=== PATIENT | male | born 1950 | race Caucasian/White ===

== ENCOUNTER → 2019-06-07 12:46 | Outpatient (CLI) | payer MEDICARE, OTHER, SELFPAY ==
[2019-06-07 13:09] LABS: Influenza A and B by PCR Rapid Negative (Negative)
== END ==
PROVIDERS: Visit Provider Physician Assistant
DX: R68.89 Other general symptoms and signs (principal)
CPT/HCPCS: 87400

== ENCOUNTER 2019-06-07 13:31 | Inpatient (IN) | payer MEDICARE, OTHER, SELFPAY ==
[2019-06-07] VITALS (14 sets, daily range): BP systolic 104–178; BP diastolic 54–93; PULSE 78–115; RESP 17–23; TEMP 37.6–39.8; O2SAT 93–97; BMI 41.3
--- NOTE | 2019-06-07 13:43 | DI.RAD.S_ITS ---
PROCEDURE: XR CHEST 1V INDICATIONS: sepsis TECHNIQUE: One view of the chest was acquired. COMPARISON: None. FINDINGS: Surgical changes and devices: None. Lungs and pleura: Lungs are clear. No pleural effusions or pneumothorax. Mediastinum: Mediastinal contours appear normal. Heart size is normal. Bones and chest wall: No suspicious bony lesions. Overlying soft tissues appear unremarkable. IMPRESSION: No acute cardiopulmonary process is evident. Dictated by: Suorav Priest M.D. on 06/07/2019 at 13:29 Approved by: Sourav Priest M.D. on 06/07/2019 at 13:31
--- NOTE | 2019-06-07 13:54 | ED_ITS ---
HPI - Fever General Chief Complaint: Fever Stated Complaint: 105 temp, high Blood Preesure, sent from [facility] Time Seen by Provider: 06/07/19 13:40 Source: patient Mode of arrival: Ambulatory History of Present Illness HPI Narrative: 69-year-old male cigar smoker with hypertension and hyperlipidemia presents with a chief complaint of a day and a half of severe right-sided year and right-sided neck pain along with fever as high as 105, nausea, shaking chills and weakness. He denies any injury. He denies neurologic symptoms such as blurred vision, trouble with speech or confusion. He has had no chest pain, shortness of breath or cough. He denies any abdominal pain dysuria or frequency. He was seen at the walk-in clinic and sent here for further evaluation. He has very significant swelling, pain, redness and tenderness to the right external ear and just posterior. He is allergic to quinolones MD complaint: fever Onset (ago): day(s) Maximum Temperature: 105 F Temperature Source: oral Associated symptoms: chills, rigors and headache Relieving factors: nothing Exacerbating factors: nothing Treatments prior to arrival fever: none Related Data Home Medications Medication Instructions Recorded Confirmed aspirin 81 mg PO DAILY #0 04/10/12 06/07/19 folic acid 1 mg PO DAILY #0 04/10/12 06/07/19 Multivitamin Senior 1 tab PO DAILY 06/07/19 06/07/19 Super Biotin 5,000 mg PO DAILY 06/07/19 06/07/19 Turmeric Curcumin 1,000 mg PO DAILY 06/07/19 06/07/19 atorvastatin 10 mg PO DAILY 06/07/19 06/07/19 carvedilol 6.25 mg PO BID 06/07/19 06/07/19 diltiazem HCl 120 mg PO DAILY 06/07/19 06/07/19 ferrous sulfate 65 mg PO Q OTHER DAY 06/07/19 06/07/19 lisinopril-hydrochlorothiazide 1 tab PO DAILY 06/07/19 06/07/19 magnesium oxide 400 mg PO DAILY 06/07/19 06/07/19 methotrexate sodium 25 mg PO QWEEK 06/07/19 06/07/19 sildenafil [Viagra] 0 mg PO PRN PRN 06/07/19 06/07/19 Allergies Allergy/AdvReac Type Severity Reaction Status Date / Time levofloxacin [From LEVAQUIN] Allergy Unknown Verified 06/07/19 13:20 phenazopyridine Allergy Unknown Verified 06/07/19 14:33 Review of Systems Constitutional Constitutional: Reports body ache(s), Reports chills, Denies fatigue, Reports fever(s), Denies frequent falls, Reports headache(s), Denies lethargy and Denies weakness Eyes Eyes: Denies change in vision, Denies eye discharge, Denies irritation and Denies loss of vision ENT Ears, Nose, Mouth, and Throat: Denies change in voice, Denies dizziness, Reports otalgia, Reports headache(s), Denies neck pain, Denies sore throat and Denies throat swelling Cardiovascular Cardiovascular: Denies chest pain, Denies irregular heart rhythm, Denies lightheadedness, Denies palpitations, Denies dyspnea, Denies dyspnea on exertion and Denies orthopnea Respiratory Respiratory: Denies cough, Denies dyspnea, Denies dyspnea on exertion and Denies wheezing Gastrointestinal Gastrointestinal: Denies abdominal pain, Denies change in bowel habits, Denies diarrhea, Denies nausea and Denies vomiting Genitourinary Genitourinary: Denies hematuria, Denies flank pain, Denies urinary incontinence and Denies urinary urgency Musculoskeletal Musculoskeletal: Denies back pain, Denies muscle weakness, Denies neck pain, Denies numbness and Denies tingling Integumentary/Breasts Skin/Breast: Denies pruritus, Denies erythema, Denies rash and Denies wounds Neurologic Neurologic: Denies behavioral changes, Denies confusion, Denies dizziness, Denies frequent falls, Reports headache(s), Denies loss of vision, Denies numbness, Denies tingling and Denies weakness Psychiatric Psychiatric: Denies anxiety, Denies behavioral changes, Denies confusion, Denies depression, Denies homicidal ideation and Denies suicidal ideation Endocrine Endocrine: Denies fatigue, Denies flushing and Denies palpitations Hematologic/Lymphatic Hematologic/Lymphatic: Denies easy bruising Allergic/Immunologic Allergic/Immunologic: Denies urticaria, Denies throat swelling and Denies wheezing PFSH Social History Smoking Status: Current every day smoker Social History Smoking Status: Current every day smoker Exam Narrative Exam Narrative: GENERAL: [69] year old patient appears stated age. Obese, well- developed, obviously ill HEAD: Atraumatic. Normocephalic. EYES: Pupils equal round and reactive. Extraocular motions intact. No scleral icterus. No injection or drainage. ENT: Redness, warmth and swelling to the right external ear with a swollen node behind the ear and tenderness over the mastoid Nose without bleeding, purulent drainage. Throat without erythema, tonsillar hypertrophy or exudate. Airway patent. NECK: Trachea midline. Non tender CARDIOVASCULAR: Tachycardic and regular rhythm without murmurs, gallops, or rubs. RESPIRATORY: Clear to auscultation. Breath sounds equal bilaterally. No wheezes, rales, or rhonchi. GASTROINTESTINAL: Abdomen soft, non-tender, nondistended. EXTREMITIES: No edema or joint tenderness. BACK: Nontender without deformity or crepitance. No flank tenderness. NEURO: AOx3. SKIN: No rash or erythema of visible areas Initial Vital Signs Initial Vital Signs: Vital Signs Temperature 103.7 F H 06/07/19 13:38 Pulse Rate 115 H 06/07/19 13:38 Respiratory Rate 22 06/07/19 13:38 Blood Pressure 178/93 H 06/07/19 13:38 Pulse Oximetry 96 06/07/19 13:38 Course Orders Ordered: ED Orders 06/07/19 13:43 XR chest 1V Stat 06/07/19 14:07 CT mastoid temporal Stat 06/07/19 14:15 Complete Blood Count AUTO DIFF Stat Comprehensive Metabolic Panel Stat Lactate (Lactic Acid) Stat Procalcitonin Stat 06/07/19 14:36 Blood Culture Stat Acetaminophen (Tylenol) 650 mg PO Q6HR PRN PRN Reason: As Needed for Fever/Mild Pain Aspirin (Aspirin Chew) 81 mg PO DAILY SONYA Atorvastatin Calcium (Lipitor) 10 mg PO DAILY SNOYA Carvedilol (Coreg) 6.25 mg PO BID SONYA Folic Acid (Folic Acid) 1 mg PO DAILY SONYA Heparin Sodium (Porcine) (Heparin) 5,000 unit SUBCUT BID SONYA Piperacillin/Tazobactam/Dextrose (Zosyn) 4.5 gm in 100 mls @ 200 mls/hr IV Q6H SONYA Ketorolac Tromethamine (Toradol) 10 mg PO Q6HR PRN PRN Reason: Pain, Moderate (4-6) Stop: 06/12/19 16:54 Non-Formulary Medication (Diltiazem Hcl) 120 mg PO DAILY [facility] Non-Formulary Medication (Lisinopril-Hydrochlorothiazide) 1 tab PO DAILY [facility] Vancomycin HCl (Vancomycin Per Pharmacy) 1 request MISC NOW ONE Stop: 06/07/19 16:50 Discontinued Medications Acetaminophen (Tylenol) 975 mg PO NOW ONE Stop: 06/07/19 16:38 Last Admin: 06/07/19 16:44 Dose: 975 mg Documented by: ISRA Sodium Chloride (Normal Saline 0.9%) 3,810.18 mls @ 1,270.06 mls/hr 30 ml/kg infuse over 3 hr (3810.18 ml) IV NOW ONE Stop: 06/07/19 16:42 Last Admin: 06/07/19 14:45 Dose: 1,270.06 mls/hr Documented by: ISRA Piperacillin/Tazobactam/Dextrose (Zosyn) 3.375 gm in 50 mls @ 100 mls/hr IV NOW ONE Stop: 06/07/19 16:10 Last Infusion: 06/07/19 16:43 Dose: 0 mls/hr Documented by: Admin: 06/07/19 16:13 Dose: 100 mls/hr Documented by: ISRA Ketorolac Tromethamine (Toradol) 15 mg IV NOW ONE Stop: 06/07/19 15:19 Last Admin: 06/07/19 15:31 Dose: 15 mg Documented by: NOHEMI Browne Consultation #1: Discussion with on-call [facility] to discuss antibiotic approach and any other recommendations. They are happy with Pip/Marcelino is given allergy to quinolones. Consultation #2: hospitalist happy to accept Vital Signs Vital signs: Vital Signs - 8 hr 06/07/19 13:38 06/07/19 14:30 06/07/19 15:08 Temperature 103.7 F H Pulse Rate 115 H 107 H 79 Respiratory Rate 22 23 Blood Pressure 178/93 H Blood Pressure [Left Arm] 148/75 H 165/86 H Pulse Oximetry 96 93 96 MDM - Fever Lab Data Result diagrams: 06/07/19 14:15 06/07/19 14:15 Labs: Lab Results 06/07/19 06/07/19 06/07/19 Range/Units 14:15 14:15 14:15 WBC 11.6 H (4.5-11.0) X10^3/uL RBC 4.58 (4.5-5.9) X10^6/uL Hgb 13.8 (13.5-17.5) g/dL Hct 40.7 L (41-53) % MCV 88.9 (80-100) fL MCH 30.1 (26-34) PG MCHC 33.9 (30-36) % RDW 13.9 (11.6-14.8) % Plt Count 144 L (150-400) X10^3/uL Neut % (Auto) 89.9 H (50-75) % Lymph % (Auto) 4.7 L (25-40) % [place] % (Auto) 4.4 (3-14) % Eos % (Auto) 0.2 L (2-4) % Baso % (Auto) 0.8 (0-2) % Neut # (Auto) 20571 H (7068-6185) /uL Lymph # (Auto) 500 L (7895-6982) /uL [place] # (Auto) 500 (0-900) /uL Eos # (Auto) 0 (0-450) /uL Baso # (Auto) 100 (0-100) /uL Sodium 135 L (137-145) mmol/L Potassium 3.8 (3.4-5.1) mmol/L Chloride 99 (98-107) mmol/L Carbon Dioxide 27 (22-32) mmol/L BUN 12 (9-20) mg/dL Creatinine 0.90 (0.66-1.25) mg/dL Estimated GFR > 60.0 (>60) mL/min BUN/Creatinine Ratio 13.3 (6-22) Glucose 121 H (80-110) mg/dL Lactate (0.7-2.1) mmol/L Calcium 8.7 (8.4-10.2) mg/dL Total Bilirubin 1.4 H (0.2-1.3) mg/dL AST 39 (17-59) IU/L ALT 47 (21-72) IU/L Alkaline Phosphatase 89 (38-126) U/L Total Protein 7.2 (6.3-8.2) g/dL Albumin 4.2 (3.5-5.0) g/dL Globulin 3.0 (1.7-4.1) g/dL Albumin/Globulin Ratio 1.4 (1.0-2.8) Procalcitonin 0.16 (<0.5) ng/mL 06/07/19 Range/Units 14:15 WBC (4.5-11.0) X10^3/uL RBC (4.5-5.9) X10^6/uL Hgb (13.5-17.5) g/dL Hct (41-53) % MCV (80-100) fL MCH (26-34) PG MCHC (30-36) % RDW (11.6-14.8) % Plt Count (150-400) X10^3/uL Neut % (Auto) (50-75) % Lymph % (Auto) (25-40) % [place] % (Auto) (3-14) % Eos % (Auto) (2-4) % Baso % (Auto) (0-2) % Neut # (Auto) (0954-4590) /uL Lymph # (Auto) (5844-6979) /uL [place] # (Auto) (0-900) /uL Eos # (Auto) (0-450) /uL Baso # (Auto) (0-100) /uL Sodium (137-145) mmol/L Potassium (3.4-5.1) mmol/L Chloride (98-107) mmol/L Carbon Dioxide (22-32) mmol/L BUN (9-20) mg/dL Creatinine (0.66-1.25) mg/dL Estimated GFR (>60) mL/min BUN/Creatinine Ratio (6-22) Glucose (80-110) mg/dL Lactate 1.2 (0.7-2.1) mmol/L Calcium (8.4-10.2) mg/dL Total Bilirubin (0.2-1.3) mg/dL AST (17-59) IU/L ALT (21-72) IU/L Alkaline Phosphatase (38-126) U/L Total Protein (6.3-8.2) g/dL Albumin (3.5-5.0) g/dL Globulin (1.7-4.1) g/dL Albumin/Globulin Ratio (1.0-2.8) Procalcitonin (<0.5) ng/mL Imaging Data Mastoid Xray: Radiologist's impression: [address] [address] [address] Scan Report Signed Patient: Brandon Galo TMR#: [id number] : 1Acct:[id number] Age/Sex: 69 / MDate of Service: 06/07/19 Loc: ED Accession Number: [id number] Procedure: CT mastoid temporal Ordering Provider: Eder Zaman D.O. PROCEDURE: CT MASTOID TEMPORAL INDICATIONS: septic, fever 105, pain swelling external ear, tender mastoid COMPARISON: None. TECHNIQUE: Noncontrast 0.6 mm thick direct axial and coronal sections acquired through each temporal bone separately. FINDINGS: Image quality: Limited by beam hardening artifact related to metallic dental hardware. RIGHT: External auditory canal: Mild inflammatory changes noted in the right sam- articular soft tissues and in the soft tissue component of the right external auditory canal compatible with right otitis externa. No abscess identified. Middle ear: The middle ear structures, including the ossicles and tympanic membrane, appear normal. No abnormal fluid or soft tissue density. Inner ear: Inner ear is normally formed and appears unremarkable. Facial nerve appears normal throughout is course. Mastoids: Mastoid air cells are clear. No osseous erosive changes. LEFT: External auditory canal: Canal has a normal appearance. Middle ear: The middle ear structures, including the ossicles and tympanic membrane, appear normal. No abnormal fluid or soft tissue density. Inner ear: Inner ear is normally formed and appears unremarkable. Facial nerve appears normal throughout its course. Mastoids: Mastoid air cells are clear. MISCELLANEOUS: Visualized surrounding bones appear unremarkable. Visualized intracranial structures, including the cerebellopontine angle cisterns, appear normal. IMPRESSION: 1. Right otitis externa. 2. No abscess. Dictated by: Karely Valle MD, PhD on 06/07/2019 at 14:59 Approved by: Karely Valle MD, PhD on 06/07/2019 at 15:04 Discharge Plan Departure Patient Disposition: Admitted as Observation Clinical Impression: Otitis externa Qualifiers: Otitis externa type: unspecified type Chronicity: acute Laterality: right Qualified Code(s): H60.501 - Unspecified acute noninfective otitis externa, right ear Cellulitis of ear Qualifiers: Laterality: right Qualified Code(s): H60.11 - Cellulitis of right external ear Discharge Date/Time: 06/07/19 16:50 Admit Date/Time: 06/07/19 16:10 Admit Provider: Eduardo Thornton
--- NOTE | 2019-06-07 14:07 | DI.CT.S_ITS ---
PROCEDURE: CT MASTOID TEMPORAL INDICATIONS: septic, fever 105, pain swelling external ear, tender mastoid COMPARISON: None. TECHNIQUE: Noncontrast 0.6 mm thick direct axial and coronal sections acquired through each temporal bone separately. FINDINGS: Image quality: Limited by beam hardening artifact related to metallic dental hardware. RIGHT: External auditory canal: Mild inflammatory changes noted in the right sam-articular soft tissues and in the soft tissue component of the right external auditory canal compatible with right otitis externa. No abscess identified. Middle ear: The middle ear structures, including the ossicles and tympanic membrane, appear normal. No abnormal fluid or soft tissue density. Inner ear: Inner ear is normally formed and appears unremarkable. Facial nerve appears normal throughout is course. Mastoids: Mastoid air cells are clear. No osseous erosive changes. LEFT: External auditory canal: Canal has a normal appearance. Middle ear: The middle ear structures, including the ossicles and tympanic membrane, appear normal. No abnormal fluid or soft tissue density. Inner ear: Inner ear is normally formed and appears unremarkable. Facial nerve appears normal throughout its course. Mastoids: Mastoid air cells are clear. MISCELLANEOUS: Visualized surrounding bones appear unremarkable. Visualized intracranial structures, including the cerebellopontine angle cisterns, appear normal. IMPRESSION: 1. Right otitis externa. 2. No abscess. Dictated by: Karely Valle MD, PhD on 06/07/2019 at 14:59 Approved by: Karely Valle MD, PhD on 06/07/2019 at 15:04
[2019-06-07 14:28] LABS: Add Manual Diff / Slide Review NO; Basophils Absolute Auto 100 /uL (0-100); Basophils Percent Auto 0.8 % (0-2); Eosinophils Absolute Auto 0 /uL (0-450); Eosinophils Percent Auto 0.2 % (2-4); Hematocrit 40.7 % (41-53); Hemoglobin 13.8 g/dL (13.5-17.5); Lymphocytes Absolute Auto 500 /uL (1100-4500); Lymphocytes Percent Auto 4.7 % (25-40); Mean Corpuscular HGB Conc 33.9 % (30-36); Mean Corpuscular Hemoglobin 30.1 PG (26-34); Mean Corpuscular Volume 88.9 fL (80-100); Monocytes Absolute Auto 500 /uL (0-900); Monocytes Percent Auto 4.4 % (3-14); Neutrophils Absolute Auto 10400 /uL (1500-7000); Neutrophils Percent Auto 89.9 % (50-75); Platelet Count 144 X10^3/uL (150-400); Red Blood Cell Count 4.58 X10^6/uL (4.5-5.9); Red Cell Distribution Width 13.9 % (11.6-14.8); White Blood Cell Count 11.6 X10^3/uL (4.5-11.0)
[2019-06-07 14:39] LABS: Lactate (Lactic Acid) 1.2 mmol/L (0.7-2.1)
[2019-06-07 14:44] LABS: Alanine Aminotransferase 47 IU/L (21-72); Albumin 4.2 g/dL (3.5-5.0); Albumin Globulin Ratio 1.4 (1.0-2.8); Alkaline Phosphatase 89 U/L (38-126); Aspartate Aminotransferase 39 IU/L (17-59); BUN Creatinine Ratio 13.3 (6-22); Bilirubin Total 1.4 mg/dL (0.2-1.3); Blood Urea Nitrogen 12 mg/dL (9-20); Calcium 8.7 mg/dL (8.4-10.2); Carbon Dioxide 27 mmol/L (22-32); Chloride 99 mmol/L (98-107); Estimated Glomerular Filt Rate > 60.0 mL/min (>60); Glucose 121 mg/dL (80-110); HEMOLYSIS 22 (0-50); Potassium 3.8 mmol/L (3.4-5.1); Sodium 135 mmol/L (137-145); Total Protein 7.2 g/dL (6.3-8.2)
[2019-06-07] MEDS: SODIUM CHLORIDE 0.9% 1270.06 ML IV (14:45)
[2019-06-07 15:02] LABS: Procalcitonin 0.16 ng/mL (<0.5)
[2019-06-07] MEDS: KETOROLAC 60 MG/2 ML VIAL 15 MG IV (15:31)
[2019-06-07] MEDS: PIPERACILLIN-TAZO 3.375 GM/50 ML FROZ.PIGGY IV (16:13)
--- NOTE | 2019-06-07 16:19 | P.HP_ITS ---
History of Present Illness History of Present Illness Date Patient Seen: 06/07/19 Time Patient Seen: 17:16 Chief complaint: 105 temp, high Blood Preesure, sent from [facility] Narrative: 69-year-old male cigar smoker with hypertension,hyperlipidemia, psoriasis (on methotrexate), paroxysmal afib s/p cardioversion on asa only (after meeting with a electrical linesworker), and COPD presents with a chief complaint of a day and a half of severe right-sided ear and neck pain along with fever, chills, mild nausea and weakness. He describes the pain as sharp and throbbing with associated headache. There is no radiation but it has been constant since yesterday. He states he woke up yesterday morning with the neck and ear pain and went to the walk in clinic this morning when it did not resolve. He had a high fever there and was sent to the ED for further evaluation. He denies blurred vision, trouble with speech or confusion, he has no trouble hearing on that side. He has had no chest pain, shortness of breath. He has COPD and has had no changes in his cough. He denies any abdominal pain dysuria or frequency. He was seen at the walk-in clinic and sent here for further evaluation. He states he is allergic to Levaquin, but his reaction was a tendon rupture. He denies any sick contacts or recent travel. In the emergency room his vitals were remarkable for fever to 105, tachycardia to 115 but otherwise unremarkable except for mild hypertension. He was started on Zosyn and given 4 L of IV fluids. CT was performed which showed otitis externa, but no evidence of inner ear infection or abscess. He was admitted to Medicine under observation status for otitis externa. Patient History Medical History (Updated 06/07/19 @ 17:37 by Eduardo Thornton DO) Atrial fibrillation (Acute) COPD (chronic obstructive pulmonary disease) (Acute) HLD (hyperlipidemia) (Acute) HTN (hypertension) (Acute) Psoriasis (Acute) Social History household members: friend(s) Smoking Status: Current every day smoker alcohol intake: current Family & Social History Tobacco & Substance use: Smoking Status Current every day smoker Meds Home Medications and Allergies Home Medications Medication Instructions Recorded Confirmed Type aspirin 81 mg PO DAILY #0 04/10/12 06/07/19 History folic acid 1 mg PO DAILY #0 04/10/12 06/07/19 History Multivitamin Senior 1 tab PO DAILY 06/07/19 06/07/19 History Super Biotin 5,000 mg PO DAILY 06/07/19 06/07/19 History Turmeric Curcumin 1,000 mg PO DAILY 06/07/19 06/07/19 History atorvastatin 10 mg PO DAILY 06/07/19 06/07/19 History carvedilol 6.25 mg PO BID 06/07/19 06/07/19 History diltiazem HCl 120 mg PO DAILY 06/07/19 06/07/19 History ferrous sulfate 65 mg PO Q OTHER DAY 06/07/19 06/07/19 History lisinopril-hydrochlorothiazide 1 tab PO DAILY 06/07/19 06/07/19 History magnesium oxide 400 mg PO DAILY 06/07/19 06/07/19 History methotrexate sodium 25 mg PO QWEEK 06/07/19 06/07/19 History sildenafil [Viagra] 0 mg PO PRN PRN 06/07/19 06/07/19 History Allergies Allergy/AdvReac Type Severity Reaction Status Date / Time levofloxacin [From LEVAQUIN] Allergy Unknown Verified 06/07/19 13:20 phenazopyridine Allergy Unknown Verified 06/07/19 14:33 Review of Systems Review of Systems Narrative: All other systems reviewed with the patient and are negative unless otherwise stated. Exam Vital Signs (past 8 hours): - 06/07/19 13:38 06/07/19 14:30 06/07/19 15:08 Temperature 103.7 F H Pulse Rate 115 H 107 H 79 Respiratory Rate 22 23 Blood Pressure 178/93 H Blood Pressure [Left Arm] 148/75 H 165/86 H Pulse Oximetry 96 93 96 Oxygen Delivery Method Room Air Narrative Exam Narrative: GENERAL APPEARANCE: Well developed, well nourished, in no acute distress. Warm to touch. SKIN: Inspection of the skin reveals a psoriatic rash on his face and upper ex tremities. HEENT: Significant R periauricular erythema and swelling, R ear swelling, no discrete abscess, no discharge from ear canal. His R ear is tender. L ear is unremarkable. NECK: Supple and symmetric. There was no thyroid enlargement, and no tenderness, or masses were felt. CHEST: Normal AP diameter and normal contour without any kyphoscoliosis. LUNGS: Auscultation of the lungs revealed mild diffuse expiratory wheezing. CARDIOVASCULAR: Tachycardic, regular rhythm without any murmurs, gallops, rubs. Peripheral pulses were 2+ and symmetric. ABDOMEN: Soft and nontender with normal bowel sounds. No ascites was noted. Obese. MUSCULOSKELETAL: There was no tenderness or effusions noted. Muscle strength and tone were normal. EXTREMITIES: No cyanosis, clubbing or edema. NEUROLOGIC: Alert and oriented x 3. Normal affect. Strength is +5/5 in the Upper Extremities and Lower Extremities Bilaterally. Sensation to touch was normal. Objective Labs Result Diagrams: 06/07/19 14:15 06/07/19 14:15 Labs: Laboratory Results - last 24 hr 06/07/19 06/07/19 06/07/19 14:15 14:15 14:15 WBC 11.6 H RBC 4.58 Hgb 13.8 Hct 40.7 L MCV 88.9 MCH 30.1 MCHC 33.9 RDW 13.9 Plt Count 144 L Neut % (Auto) 89.9 H Lymph % (Auto) 4.7 L [place] % (Auto) 4.4 Eos % (Auto) 0.2 L Baso % (Auto) 0.8 Neut # (Auto) 77455 H Lymph # (Auto) 500 L [place] # (Auto) 500 Eos # (Auto) 0 Baso # (Auto) 100 Sodium 135 L Potassium 3.8 Chloride 99 Carbon Dioxide 27 BUN 12 Creatinine 0.90 Estimated GFR > 60.0 BUN/Creatinine Ratio 13.3 Glucose 121 H Lactate Calcium 8.7 Total Bilirubin 1.4 H AST 39 ALT 47 Alkaline Phosphatase 89 Total Protein 7.2 Albumin 4.2 Globulin 3.0 Albumin/Globulin Ratio 1.4 Procalcitonin 0.16 06/07/19 14:15 WBC RBC Hgb Hct MCV MCH MCHC RDW Plt Count Neut % (Auto) Lymph % (Auto) [place] % (Auto) Eos % (Auto) Baso % (Auto) Neut # (Auto) Lymph # (Auto) [place] # (Auto) Eos # (Auto) Baso # (Auto) Sodium Potassium Chloride Carbon Dioxide BUN Creatinine Estimated GFR BUN/Creatinine Ratio Glucose Lactate 1.2 Calcium Total Bilirubin AST ALT Alkaline Phosphatase Total Protein Albumin Globulin Albumin/Globulin Ratio Procalcitonin Assessment & Plan Assessment & Plan narrative: 69-year-old male cigar smoker with hyperte nsion,hyperlipidemia, psoriasis (on methotrexate), paroxysmal afib s/p cardioversion on asa only (after meeting with a electrical linesworker), and COPD presents with a chief complaint of a day and a half of severe right-sided ear and neck pain along with fever, chills, mild nausea and weakness. He is admitted with right otitis externa, with sam auricular cellulitis superimposed. 1. Sepsis secondary to Right otitis externa, acute, present on admission -no concerning features including black discharge and no history of diabetes. He meets SIRS criteria, SOFA score is 2 for Tbili and Platelet count. - will treat with cortisporin ear drops along with systemic therapy given fever to 105 in the ED. - continue with zosyn 4.5 q6 hr for pseudomonal dosing, add vancomycin per pharmacy for MRSA coverage with periauricular cellulitis. - glucose normal on initial BMP, will send A1c to ensure no DM. - patient received weight based bolus of IVF in the emergency room. 2. Right periauricular cellulitis, acute, present on admission - - zosyn and vancomycin as noted above 3. HTN, chronic, active - likely elevated secondary to pain. - continue home diltiazem, lisinopril/HCTZ, coreg 4. history of pafib s/p cardioversion - - continue asa 81 mg daily 5. HLD, chronic, active - continue lipitor 10 mg daily. 6. Psoriasis, chronic, active - - will hold methotrexate currently, he usually takes 25 mg on Friday. DVT: HSQ Code: Full Dispo: admit under observation status as stay is expected not to exceed two midnights. Scores SOFA PaO2/FIO2: >=400 mmHg Platelets: < 150 Bilirubin: 1.2-1.9 mg/dL Hypotension: MAP >= 70 mmHg Jhonny Coma Scale: 15 Renal: < 1.2 mg/dL SOFA Score: 2
[2019-06-07] MEDS: ACETAMINOPHEN 325 MG TABLET 975 MG PO (16:44)
--- NOTE | 2019-06-07 17:06 | PC.ADMIT ---
[address] [facility] [address] Admission Note: The patient,Brandon Galo,69 y/o, was given written information regarding hospital policies, unit procedures and contact persons. Patient's smoking status: Current every day smoker. Vital Signs - 8 hr 06/07/19 13:38 06/07/19 14:30 06/07/19 15:08 Temperature 103.7 F H Pulse Rate 115 H 107 H 79 Respiratory Rate 22 23 Blood Pressure 178/93 H Blood Pressure [Left Arm] 148/75 H 165/86 H Pulse Oximetry 96 93 96 06/07/19 16:25 06/07/19 16:45 Temperature 103.2 F H Pulse Rate 104 H Respiratory Rate 17 Blood Pressure 147/77 H Blood Pressure [Left Arm] Pulse Oximetry 94 Patient up from ED via stretcher. Patient was able to get off of the stretcher and ambulate to ac bed, gait was steady. Friend (Ene) at bedside, she is to take his wallet home. Doctor in to see patient. Patient A&O, calm and cooperative.
[2019-06-07] MEDS: VANCOMYCIN 1,000 MG/200 ML PIGGYBACK 200 MG IV (18:00)
[2019-06-07 18:59] LABS: Bacteria Urine None Seen
[2019-06-07 19:00] LABS: Appearance Urine UA CLEAR; Bilirubin Urine UA NEGATIVE (NEGATIVE); Color Urine UA YELLOW; Glucose Urine UA NEGATIVE (Negative); Ketones Urine UA NEGATIVE (NEGATIVE); Leukocyte Esterase Urine UA NEGATIVE (NEGATIVE); Nitrite Urine UA NEGATIVE (Negative); Occult Blood Urine UA TRACE-LYSED (Negative); Protein Urine UA TRACE (Negative); Specific Gravity Urine UA <=1.005 (1.000-1.035); Urobilinogen Urine UA 0.2 E.U./dL (0.2); pH Urine UA 7.5 (4.5-8.0)
[2019-06-07 19:10] LABS: Culture Indicated Urine Cult Not Indicated; RBC Urine 0-1/HPF (0-5/HPF); WBC Urine 0-1/HPF (0-5/HPF)
[2019-06-07] MEDS: HEPARIN 5,000 UNIT/ML VIAL 5000 UNIT SUBCUT (20:30)
[2019-06-07] MEDS: NEOMY/POLYM B/HC OTIC 10 ML 4 DROPS EAR-RIGHT (20:30)
[2019-06-07] MEDS: KETOROLAC 10 MG TABLET PO (20:30)
[2019-06-07] MEDS: CARVEDILOL 6.25 MG TABLET PO (20:39)
[2019-06-07] MEDS: PIPERACILLIN-TAZO 4.5 GM/100 ML FROZ.PIGGY IV (22:34)
--- NOTE | 2019-06-07 22:57 | PC.NURSE ---
A&OX3. 96%RA. cont pulse ox. Rt. ear and rt. cheek swollen. ice pack applied. temp down to 99.6 F. medicated with toradol for head ache and ear pain. oriented pt to room. call light in reach. sba to the BR.
[2019-06-08] VITALS (18 sets, daily range): BP systolic 127–151; BP diastolic 64–89; PULSE 70–96; RESP 14–20; TEMP 36.4–39.6; O2SAT 94–97
[2019-06-08] MEDS: ACETAMINOPHEN 325 MG TABLET 650 MG PO ×3 (00:44→22:04)
[2019-06-08] MEDS: ALBUTEROL 2.5 MG/3 ML NEB (ADULT) INH (01:36)
[2019-06-08] MEDS: IBUPROFEN 400 MG TABLET PO (03:08)
[2019-06-08] MEDS: PIPERACILLIN-TAZO 4.5 GM/100 ML FROZ.PIGGY IV ×4 (04:07→21:59)
[2019-06-08 05:33] LABS: Acinetobacter baumannii Not Detected (Not Detect); E. coli Not Detected (Not Detect); Enterobacteriaceae species Not Detected (Not Detect); Enterococcus species Not Detected (Not Detect); Listeria monocytogenes Not Detected (Not Detect); Staphylococcus species Not Detected (Not Detect); Streptococcus agalactiae (Gr B Not Detected (Not Detect); Streptococcus pneumonia Not Detected (Not Detect); Streptococcus species Detected (Not Detect)
[2019-06-08 05:34] LABS: Candida albicans Not Detected (Not Detect); Candida glabrata Not Detected (Not Detect); Candida krusei Not Detected (Not Detect); Candida parapsilosis Not Detected (Not Detect); Candida tropicalis Not Detected (Not Detect); Enterobacter cloacae complex Not Detected (Not Detect); Haemophilus influenzae Not Detected (Not Detect); Neisseria meningitidis Not Detected (Not Detect); Proteus species Not Detected (Not Detect); Pseudomonas aeruginosa Not Detected (Not Detect); Serratia marcescens Not Detected (Not Detect)
[2019-06-08 05:35] LABS: Streptococcus pyogenes (Gr A) Detected (Not Detect)
[2019-06-08 05:48] LABS: Add Manual Diff / Slide Review NO; Basophils Absolute Auto 0 /uL (0-100); Basophils Percent Auto 0.4 % (0-2); Eosinophils Absolute Auto 0 /uL (0-450); Eosinophils Percent Auto 0.1 % (2-4); Hematocrit 35.7 % (41-53); Hemoglobin 12.1 g/dL (13.5-17.5); Lymphocytes Absolute Auto 400 /uL (1100-4500); Lymphocytes Percent Auto 4.9 % (25-40); Mean Corpuscular HGB Conc 34.1 % (30-36); Mean Corpuscular Hemoglobin 30.5 PG (26-34); Mean Corpuscular Volume 89.5 fL (80-100); Monocytes Absolute Auto 400 /uL (0-900); Neutrophils Absolute Auto 6600 /uL (1500-7000); Neutrophils Percent Auto 88.6 % (50-75); Platelet Count 104 X10^3/uL (150-400); Red Blood Cell Count 3.99 X10^6/uL (4.5-5.9); Red Cell Distribution Width 14.3 % (11.6-14.8); White Blood Cell Count 7.5 X10^3/uL (4.5-11.0)
--- NOTE | 2019-06-08 05:51 | DI.ECHO.S_ITS ---
[facility] +---------+ : : [address] : : : : [id number] : : : : Phone: [phone]+ Echocardiogram Report + + :Name: JENNIFER BUTTERFIELD Study Date: 06/08/2019 Height: 69 in : :[facility] Weight: 280 lb : : Gender: Male BSA: 2.4 m2 : :: 1950 Age: 69 yrs BP: 140/78 mmHg: :Reason For Study: ENDOCARDITIS : : Performed By: Roosevelt Luke : :Referring: LATASHA PEREZ : + + Interpretation Summary The left ventricle is normal in size. Left ventricular systolic function is normal without focal wall motion abnormalities. The ejection fraction is estimated to be 60-65%. Diastolic parameters suggest probable normal left ventricular diastolic function and normal filling pressures. The right ventricle is normal in size and function. Pulmonary artery pressures cannot be estimated because of the lack of a measurable TR jet velocity. The left atrium is moderately dilated. Right atrial size is normal. There is no significant valvular heart disease. The ascending aorta is mildly enlarged. No obvious findings for endocarditis. Procedure: A two-dimensional transthoracic echocardiogram with color flow and Doppler was performed. The study quality was technically adequate. There is no prior echocardiogram noted for this patient. The patient was in normal sinus rhythm during the exam. Left Ventricle: The left ventricle is normal in size. Left ventricular wall thickness is mildly increased. Left ventricular systolic function is normal without focal wall motion abnormalities. The ejection fraction is estimated to be 60-65%. Diastolic parameters suggest probable normal left ventricular diastolic function and normal filling pressures. Right Ventricle: The right ventricle is normal in size and function. Atria: The left atrium is moderately dilated. Right atrial size is normal. The interatrial septum is intact with no evidence for an atrial septal defect. Mitral Valve: There is mild mitral annular calcification. There is trace mitral regurgitation. Aortic Valve: The aortic valve is trileaflet. The aortic valve is mildly calcified. There is mildly reduced leaflet mobility. There is no hemodynamically significant valvular aortic stenosis. No aortic regurgitation is present. Tricuspid Valve: The tricuspid valve is normal in structure and function. No tricuspid regurgitation. Pulmonary artery pressures cannot be estimated because of the lack of a measurable TR jet velocity. Pulmonic Valve: The pulmonic valve is not well visualized. There is trace pulmonic regurgitation. There is no significant valvular heart disease. Great Vessels: The aortic root is normal size. The ascending aorta is mildly enlarged. The pulmonary artery is normal size. The IVC is dilated (diameter is greater than 2.1 cm) and it collapses less than 50% with a sniff. This suggests a high right atrial pressure of 15 mm Hg. Pericardium/ Pleura There is no pericardial effusion. There is no pleural effusion. MMode/2D Measurements & Calculations LVIDd: 5.3 cm LVOT diam: 2.5 cm LVIDs: 3.3 cm Ao root diam: 4.0 cm FS: 38.1 % Aortic Jxn: 3.0 cm EPSS: 0.47 cm asc Aorta Diam: 3.7 cm IVSd: 1.2 cm LVPWd: 1.1 cm LV de leon. diameter/BSA (cm/m^2): 2.2 LV sys. diameter/BSA (cm/m^2): 1.4 LA dimension: 4.2 cm RA long axis: 5.5 cm LA A2 area: 27.8 cm2 RA area: 21.5 cm2 LA A4 area: 25.0 cm2 RA vol: 71.1 ml LA length (vol): 5.7 cm RA : 29.8 ml/m2 LA vol: 103.1 ml IVC diam: 2.7 cm LA vol index: 43.3 ml/m2 Doppler Measurements & Calculations Ao V2 max: 220.5 cm/sec LVOT Max Andrews: 96.3 cm/sec Ao V2 mean: 164.2 cm/sec LV V1 max P.7 mmHg Ao max P.4 mmHg LV V1 VTI: 22.5 cm Ao mean P.5 mmHg HUMBERTO(I,D): 2.5 cm2 Ao V2 VTI: 44.6 cm HUMBERTO(V,D): 2.2 cm2 sev ratio: 0.50 HUMBERTO indexed to BSA (cm^2/m^2): 1.1 MV E max andrews: 97.2 cm/sec PA V2 max: 79.9 cm/sec MV A max andrews: 93.4 cm/sec PA V2 mean: 58.1 cm/sec MV E/A: 1.0 PA mean P.5 mmHg Med Peak E' Andrews: 5.6 cm/sec PA pr(Accel): 34.1 mmHg E/E' med: 17.4 PA Accel Time: 0.08 sec Lat Peak E' Andrews: 7.9 cm/sec E/E' lat: 12.2 E/e' average: 14.8 MV dec time: 0.21 sec SV(LVOT): 112.7 ml Reading Physician:03:47 PM
[2019-06-08 05:58] LABS: BUN Creatinine Ratio 12.2 (6-22); Blood Urea Nitrogen 11 mg/dL (9-20); Calcium 7.8 mg/dL (8.4-10.2); Carbon Dioxide 26 mmol/L (22-32); Chloride 105 mmol/L (98-107); Estimated Glomerular Filt Rate > 60.0 mL/min (>60); Glucose 135 mg/dL (80-110); HEMOLYSIS < 15 (0-50); Phosphorous 2.3 mg/dL (2.3-3.7); Potassium 3.3 mmol/L (3.4-5.1); Sodium 138 mmol/L (137-145)
[2019-06-08] MEDS: VANCOMYCIN 1,000 MG/200 ML PIGGYBACK 200 MG IV ×2 (06:09→17:35)
[2019-06-08 06:12] LABS: Hemoglobin A1C% w Est Avg Glu 5.2 % (4.0-6.0)
[2019-06-08 06:17] LABS: Procalcitonin 2.28 ng/mL (<0.5)
[2019-06-08] MEDS: POTASSIUM CHLORIDE 20 MEQ/15 ML UDC 40 MEQ PO (06:56)
[2019-06-08] MEDS: NEOMY/POLYM B/HC OTIC 10 ML 4 DROPS EAR-RIGHT ×3 (08:58→20:59)
[2019-06-08] MEDS: LISINOPRIL 20 MG TABLET PO (08:58)
[2019-06-08] MEDS: FOLIC ACID 1 MG TABLET PO (08:59)
[2019-06-08] MEDS: hydroCHLOROthiazide 12.5 MG CAPSULE PO (08:59)
[2019-06-08] MEDS: HEPARIN 5,000 UNIT/ML VIAL 5000 UNIT SUBCUT (08:59)
[2019-06-08] MEDS: CARVEDILOL 6.25 MG TABLET PO ×2 (08:59→20:59)
[2019-06-08] MEDS: SODIUM CHLORIDE 0.9% FLUSH 10 ML IV ×4 (10:49→21:00)
[2019-06-08] MEDS: ASPIRIN 81 MG CHEW TAB PO (10:50)
[2019-06-08] MEDS: dilTIAZem CD 120 MG CAP PO (10:50)
--- NOTE | 2019-06-08 11:39 | CM.DANOTE ---
DCP: Case received, EMR reviewed and met with patient. Introduced self and role. Ene, friend, was at bedside. Was able to obtain baseline health information from patient. DCP assessment/template, completed with information currently available. Patient is a 69 year old male who admitted yesterday afternoon to the care of the hospitalist team. PCP: REED Rodriguez. Payer: confirmed: [email or web address]. Patient came to the hospital via family vehicle secondary to a fever of 105. He had been at the walk in clinic and sent over here. Patient resides in [place], friend, Ene in room. He mentioned that his primary MD was Jamie Rodriguez, although Dr. Brantley was listed on face sheet. Patient is retired, independent at home. Patient was diagnosed with Sepsis secondary to Otitis Externa. He is receiving I.V. antibiotics. Met with him briefly in room. Alert and oriented, pleasant. Patient stated, he was feeling somewhat better. P: DCP to continue to follow and be available for any needs. Patient should be able to go home when he is medically stable, and if he can go home on oral antibiotics. Cristina Sullivan RN/Slag [employer]immer
--- NOTE | 2019-06-08 13:19 | P.PN_ITS ---
Subjective Subjective Date Patient Seen: 06/08/19 Time Patient Seen: 14:57 Interval history: Mr Galo is a 69-year-old male cigar smoker with hypertension,hyperlipidemia, psoriasis (on methotrexate), paroxysmal afib s/p cardioversion on asa only (after meeting with a electronic scale tester), and COPD who presented with right-sided neck and ear pain and was initially admitted for right otitis externa and pre auricular cellulitis, however his blood culture gram stain showed gram-positive cocci in chains. He remains on Zosyn and vancomycin at this time while awaiting culture results. He continues to have intermittent fever, he had a transthoracic echocardiogram today which is currently pending read. He complained right-sided neck pain this afternoon which resolved with Toradol. He otherwise feels well and is without complaints. Exam Vital Signs (past 8 hours): - 06/08/19 07:11 06/08/19 08:00 06/08/19 08:50 Temperature 97.5 F L Pulse Rate 70 Respiratory Rate 15 Blood Pressure 135/79 Pulse Oximetry 95 97 97 06/08/19 12:20 Temperature 100.3 F H Pulse Rate 79 Respiratory Rate 14 Blood Pressure 129/69 Pulse Oximetry 97 Oxygen Delivery Method Room Air Oxygen Flow Rate 0 Narrative Exam Narrative: GENERAL APPEARANCE: Well developed, well nourished, in no acute distress. Warm to touch. SKIN: Inspection of the skin reveals a psoriatic rash on his face and upper extremities. HEENT: Significant R periauricular erythema and swelling, R ear swelling, no discrete abscess, no discharge from ear canal. His R ear is tender. L ear is unremarkable. NECK: Supple and symmetric. There was no thyroid enlargement, and no tenderness, or masses were felt. CHEST: Normal AP diameter and normal contour without any kyphoscoliosis. LUNGS: Auscultation of the lungs revealed mild diffuse expiratory wheezing. CARDIOVASCULAR: Tachycardic, regular rhythm without any murmurs, gallops, rubs. Peripheral pulses were 2+ and symmetric. ABDOMEN: Soft and nontender with normal bowel sounds. No ascites was noted. Obese. MUSCULOSKELETAL: There was no tenderness or effusions noted. Muscle strength and tone were normal. EXTREMITIES: No cyanosis, clubbing or edema. NEUROLOGIC: Alert and oriented x 3. Normal affect. Strength is +5/5 in the Upper Extremities and Lower Extremities Bilaterally. Sensation to touch was normal. Objective Labs Result Diagrams: 06/08/19 05:06 06/08/19 05:06 Labs: Laboratory Results - last 24 hr 06/07/19 06/07/19 06/07/19 14:15 14:15 14:15 WBC 11.6 H RBC 4.58 Hgb 13.8 Hct 40.7 L MCV 88.9 MCH 30.1 MCHC 33.9 RDW 13.9 Plt Count 144 L Neut % (Auto) 89.9 H Lymph % (Auto) 4.7 L [place] % (Auto) 4.4 Eos % (Auto) 0.2 L Baso % (Auto) 0.8 Neut # (Auto) 01023 H Lymph # (Auto) 500 L [place] # (Auto) 500 Eos # (Auto) 0 Baso # (Auto) 100 Sodium 135 L Potassium 3.8 Chloride 99 Carbon Dioxide 27 BUN 12 Creatinine 0.90 Estimated GFR > 60.0 BUN/Creatinine Ratio 13.3 Glucose 121 H Hemoglobin A1c Lactate Calcium 8.7 Phosphorus Magnesium Total Bilirubin 1.4 H AST 39 ALT 47 Alkaline Phosphatase 89 Total Protein 7.2 Albumin 4.2 Globulin 3.0 Albumin/Globulin Ratio 1.4 Procalcitonin 0.16 Urine Color Urine Appearance Urine pH Ur Specific [place] Urine Protein Urine Glucose (UA) Urine Ketones Urine Occult Blood Urine Nitrate Urine Bilirubin Urine Urobilinogen Ur Leukocyte Esterase Urine RBC Urine WBC Urine Bacteria Ur Culture Indicated? A. baumannii (PCR) Bertha albicans (PCR) C. glabrata (PCR) C. krusei (PCR) C. parapsilosis (PCR) C. tropicalis (PCR) Enterobacteriac sp PCR E. cloacae complex PCR Enterococcus sp PCR E. coli (PCR) H. influenzae (PCR) Klebsiella oxytoca PCR Klebsiella pneumoniae List. monocytogenes PCR N. meningitidis (PCR) Proteus species (PCR) Serratia marcescens PCR Staphylococcus sp PCR Staph aureus (PCR) mecA-Methicil Res Gene Streptococcus sp PCR Group A Strep (PCR) Strep agalactiae (PCR) Strep pneumoniae (PCR) P. aeruginosa (PCR) Charles/B-Vanco Res Genes KPC-Carbap Res Gene PCR 06/07/19 06/07/19 06/08/19 14:15 18:58 05:06 WBC 7.5 RBC 3.99 L Hgb 12.1 L Hct 35.7 L MCV 89.5 MCH 30.5 MCHC 34.1 RDW 14.3 Plt Count 104 L Neut % (Auto) 88.6 H Lymph % (Auto) 4.9 L [place] % (Auto) 6.0 Eos % (Auto) 0.1 L Baso % (Auto) 0.4 Neut # (Auto) 6600 Lymph # (Auto) 400 L [place] # (Auto) 400 Eos # (Auto) 0 Baso # (Auto) 0 Sodium Potassium Chloride Carbon Dioxide BUN Creatinine Estimated GFR BUN/Creatinine Ratio Glucose Hemoglobin A1c Lactate 1.2 Calcium Phosphorus Magnesium Total Bilirubin AST ALT Alkaline Phosphatase Total Protein Albumin Globulin Albumin/Globulin Ratio Procalcitonin Urine Color Yellow Urine Appearance Clear Urine pH 7.5 Ur Specific [place] <=1.005 Urine Protein Trace H Urine Glucose (UA) Negative Urine Ketones Negative Urine Occult Blood Trace-lysed Urine Nitrate Negative Urine Bilirubin Negative Urine Urobilinogen 0.2 Ur Leukocyte Esterase Negative Urine RBC 0-1/hpf Urine WBC 0-1/hpf Urine Bacteria None seen Ur Culture Indicated? Cult not indicated A. baumannii (PCR) Bertha albicans (PCR) C. glabrata (PCR) C. krusei (PCR) C. parapsilosis (PCR) C. tropicalis (PCR) Enterobacteriac sp PCR E. cloacae complex PCR Enterococcus sp PCR E. coli (PCR) H. influenzae (PCR) Klebsiella oxytoca PCR Klebsiella pneumoniae List. monocytogenes PCR N. meningitidis (PCR) Proteus species (PCR) Serratia marcescens PCR Staphylococcus sp PCR Staph aureus (PCR) mecA-Methicil Res Gene Streptococcus sp PCR Group A Strep (PCR) Strep agalactiae (PCR) Strep pneumoniae (PCR) P. aeruginosa (PCR) Charles/B-Vanco Res Genes KPC-Carbap Res Gene PCR 06/08/19 06/08/19 06/08/19 05:06 05:06 05:06 WBC RBC Hgb Hct MCV MCH MCHC RDW Plt Count Neut % (Auto) Lymph % (Auto) [place] % (Auto) Eos % (Auto) Baso % (Auto) Neut # (Auto) Lymph # (Auto) [place] # (Auto) Eos # (Auto) Baso # (Auto) Sodium 138 Potassium 3.3 L Chloride 105 Carbon Dioxide 26 BUN 11 Creatinine 0.90 Estimated GFR > 60.0 BUN/Creatinine Ratio 12.2 Glucose 135 H Hemoglobin A1c 5.2 Lactate Calcium 7.8 L Phosphorus 2.3 Magnesium 2.0 Total Bilirubin AST ALT Alkaline Phosphatase Total Protein Albumin Globulin Albumin/Globulin Ratio Procalcitonin 2.28 H Urine Color Urine Appearance Urine pH Ur Specific [place] Urine Protein Urine Glucose (UA) Urine Ketones Urine Occult Blood Urine Nitrate Urine Bilirubin Urine Urobilinogen Ur Leukocyte Esterase Urine RBC Urine WBC Urine Bacteria Ur Culture Indicated? A. baumannii (PCR) Bertha albicans (PCR) C. glabrata (PCR) C. krusei (PCR) C. parapsilosis (PCR) C. tropicalis (PCR) Enterobacteriac sp PCR E. cloacae complex PCR Enterococcus sp PCR E. coli (PCR) H. influenzae (PCR) Klebsiella oxytoca PCR Klebsiella pneumoniae List. monocytogenes PCR N. meningitidis (PCR) Proteus species (PCR) Serratia marcescens PCR Staphylococcus sp PCR Staph aureus (PCR) mecA-Methicil Res Gene Streptococcus sp PCR Group A Strep (PCR) Strep agalactiae (PCR) Strep pneumoniae (PCR) P. aeruginosa (PCR) Charles/B-Vanco Res Genes KPC-Carbap Res Gene PCR 06/08/19 14:15 WBC RBC Hgb Hct MCV MCH MCHC RDW Plt Count Neut % (Auto) Lymph % (Auto) [place] % (Auto) Eos % (Auto) Baso % (Auto) Neut # (Auto) Lymph # (Auto) [place] # (Auto) Eos # (Auto) Baso # (Auto) Sodium Potassium Chloride Carbon Dioxide BUN Creatinine Estimated GFR BUN/Creatinine Ratio Glucose Hemoglobin A1c Lactate Calcium Phosphorus Magnesium Total Bilirubin AST ALT Alkaline Phosphatase Total Protein Albumin Globulin Albumin/Globulin Ratio Procalcitonin Urine Color Urine Appearance Urine pH Ur Specific [place] Urine Protein Urine Glucose (UA) Urine Ketones Urine Occult Blood Urine Nitrate Urine Bilirubin Urine Urobilinogen Ur Leukocyte Esterase Urine RBC Urine WBC Urine Bacteria Ur Culture Indicated? A. baumannii (PCR) Not detected Bertha albicans (PCR) Not detected C. glabrata (PCR) Not detected C. krusei (PCR) Not detected C. parapsilosis (PCR) Not detected C. tropicalis (PCR) Not detected Enterobacteriac sp PCR Not detected E. cloacae complex PCR Not detected Enterococcus sp PCR Not detected E. coli (PCR) Not detected H. influenzae (PCR) Not detected Klebsiella oxytoca PCR Not detected Klebsiella pneumoniae Not detected List. monocytogenes PCR Not detected N. meningitidis (PCR) Not detected Proteus species (PCR) Not detected Serratia marcescens PCR Not detected Staphylococcus sp PCR Not detected Staph aureus (PCR) Not detected mecA-Methicil Res Gene Not Reportable Streptococcus sp PCR Detected H Group A Strep (PCR) Detected H Strep agalactiae (PCR) Not detected Strep pneumoniae (PCR) Not detected P. aeruginosa (PCR) Not detected Charles/B-Vanco Res Genes Not Reportable KPC-Carbap Res Gene PCR Not Reportable Assessment & Plan Assessment & Plan narrative: 69-year-old male cigar smoker with hype rtension,hyperlipidemia, psoriasis (on methotrexate), paroxysmal afib s/p cardioversion on asa only (after meeting with a electronic scale tester), and COPD presents with a chief complaint of a day and a half of severe right-sided ear and neck pain along with fever, chills, mild nausea and weakness. He is admitted sepsis secondary to possible Gram-positive cocci bacteremia. 1. Sepsis secondary to possible Gram-positive bacteremia -pending final blood culture results. This still could possibly reflect a contaminant, however giving continued fevers, which seem cyclical a Gram-positive bacteremia fits the clinical situation. He had a TTE which was negative, he may need further imaging to look for source depending on final speciation. He will also need a SUSI if there is no obvious source and TTE is negative. SOFA score was 2 on admission. - f/u TTE results - await final blood cultures - may need SUSI (which would necessitate transfer) - continue zosyn and vancomycin, narrow pending blood cultures. 2. Right otitis externa, acute, present on admission -no concerning features including black discharge and no history of diabetes. He meets SIRS criteria, SOFA score is 2 for Tbili and Platelet count. - will treat with cortisporin ear drops along with systemic therapy given cellulitis. - continue with zosyn 4.5 q6 hr for pseudomonal dosing, add vancomycin per pharmacy for MRSA coverage with periauricular cellulitis and now gram positive cocci potentially in the blood. - glucose normal on initial BMP, A1c is 5.2. - patient received weight based bolus of IVF in the emergency room. 3. Right periauricular cellulitis, acute, present on admission - - zosyn and vancomycin as noted above - toradol prn for pain 4. HTN, chronic, active - likely elevated secondary to pain. - continue home diltiazem, lisinopril/HCTZ, coreg - may need to discontinue if patient becomes more ill secondary to bacteremia. 5. history of pafib s/p cardioversion - - continue asa 81 mg daily 6. HLD, chronic, active - continue lipitor 10 mg daily. 7. Psoriasis, chronic, active - - will hold methotrexate currently, he usually takes 25 mg on Friday. Code: Full Dispo: patient was initially admitted under observation status, he is transitioned to inpatient status. DVT: HSQ
[2019-06-08] MEDS: KETOROLAC 15 MG/ML VIAL IV ×2 (14:37→20:53)
[2019-06-08] MEDS: HEPARIN 5,000 UNIT/ML VIAL 7500 UNIT SUBCUT (17:36)
[2019-06-08] MEDS: ATORVASTATIN 10 MG TABLET PO (20:59)
[2019-06-09] MEDS: HEPARIN 5,000 UNIT/ML VIAL 7500 UNIT SUBCUT ×2 (00:08→09:40)
[2019-06-09 03:23] VITALS: BP 131/74; PULSE 69; RESP 18; TEMP 37; O2SAT 94
[2019-06-09] MEDS: PIPERACILLIN-TAZO 4.5 GM/100 ML FROZ.PIGGY IV ×2 (03:25→09:39)
[2019-06-09] MEDS: ACETAMINOPHEN 325 MG TABLET 650 MG PO (03:26)
[2019-06-09 05:47] LABS: Add Manual Diff / Slide Review NO; Basophils Absolute Auto 0 /uL (0-100); Basophils Percent Auto 0.4 % (0-2); Eosinophils Absolute Auto 200 /uL (0-450); Eosinophils Percent Auto 2.6 % (2-4); Hematocrit 34.9 % (41-53); Hemoglobin 11.8 g/dL (13.5-17.5); Lymphocytes Absolute Auto 800 /uL (1100-4500); Lymphocytes Percent Auto 12.1 % (25-40); Mean Corpuscular HGB Conc 33.8 % (30-36); Mean Corpuscular Hemoglobin 30.3 PG (26-34); Mean Corpuscular Volume 89.8 fL (80-100); Monocytes Absolute Auto 400 /uL (0-900); Monocytes Percent Auto 6.6 % (3-14); Neutrophils Absolute Auto 4900 /uL (1500-7000); Neutrophils Percent Auto 78.3 % (50-75); Platelet Count 104 X10^3/uL (150-400); Red Blood Cell Count 3.89 X10^6/uL (4.5-5.9); White Blood Cell Count 6.3 X10^3/uL (4.5-11.0)
[2019-06-09 06:02] LABS: BUN Creatinine Ratio 13.3 (6-22); Blood Urea Nitrogen 12 mg/dL (9-20); Calcium 8.2 mg/dL (8.4-10.2); Carbon Dioxide 26 mmol/L (22-32); Chloride 103 mmol/L (98-107); Estimated Glomerular Filt Rate > 60.0 mL/min (>60); Glucose 113 mg/dL (80-110); HEMOLYSIS < 15 (0-50); Magnesium 2.1 mg/dL (1.6-2.3); Phosphorous 2.6 mg/dL (2.3-3.7); Potassium 3.6 mmol/L (3.4-5.1); Sodium 136 mmol/L (137-145)
[2019-06-09 06:23] LABS: Procalcitonin 1.76 ng/mL (<0.5)
[2019-06-09 06:26] LABS: Vancomycin Trough < 5.0 ug/mL (10-20)
[2019-06-09] MEDS: VANCOMYCIN 1,000 MG/200 ML PIGGYBACK 200 MG IV (06:39)
[2019-06-09] MEDS: KETOROLAC 15 MG/ML VIAL IV (06:44)
--- NOTE | 2019-06-09 07:23 | PC.NURSE ---
Pts right eye periorbital area became swollen during the middle of the night. He was wearing his CPAP at the time. FASHION MODEL notified and assessed pt at bedside. Suggesting just keeping the CPAP off tonight and raising the HOB a little bit. His eye looks better this morning. Vanco Trough was low. called and said to just run the 1g Vanco for now and have our day pharmacist decide on adding more of a higher dose after. Tylenol and Toradol given for ear pain that is usually rated no more than 4-5 out of 10. Independent in the room. IV replaced to right hand. Kept on precautions for Gram + cocci. No fevers overnight.
[2019-06-09 08:00] VITALS: BP 147/71; PULSE 70; RESP 16; TEMP 36.9; O2SAT 96
[2019-06-09 08:30] VITALS: O2SAT 97
[2019-06-09] MEDS: CARVEDILOL 6.25 MG TABLET PO (09:41)
[2019-06-09] MEDS: LISINOPRIL 20 MG TABLET PO (09:41)
[2019-06-09] MEDS: FOLIC ACID 1 MG TABLET PO (09:41)
[2019-06-09] MEDS: hydroCHLOROthiazide 12.5 MG CAPSULE PO (09:41)
[2019-06-09] MEDS: dilTIAZem CD 120 MG CAP PO (09:41)
[2019-06-09] MEDS: SODIUM CHLORIDE 0.9% FLUSH 10 ML IV (09:42)
[2019-06-09] MEDS: ASPIRIN 81 MG CHEW TAB PO (09:42)
[2019-06-09 10:10] VITALS: PULSE 70; RESP 16; O2SAT 97
--- NOTE | 2019-06-09 13:53 | PM.DS.1 ---
History of Present Illness History of Present Illness Date Patient Seen: 06/07/19 Chief complaint: 105 temp, high Blood Preesure, sent from [facility] Narrative: Written by Dr. Thornton: 69-year-old male cigar smoker with hypertension,hyperlipidemia, psoriasis (on methotrexate), paroxysmal afib s/p cardioversion on asa only (after meeting with a bus assistant), and COPD presents with a chief complaint of a day and a half of severe right-sided ear and neck pain along with fever, chills, mild nausea and weakness. He describes the pain as sharp and throbbing with associated headache. There is no radiation but it has been constant since yesterday. He states he woke up yesterday morning with the neck and ear pain and went to the walk in clinic this morning when it did not resolve. He had a high fever there and was sent to the ED for further evaluation. He denies blurred vision, trouble with speech or confusion, he has no trouble hearing on that side. He has had no chest pain, shortness of breath. He has COPD and has had no changes in his cough. He denies any abdominal pain dysuria or frequency. He was seen at the walk-in clinic and sent here for further evaluation. He states he is allergic to Levaquin, but his reaction was a tendon rupture. He denies any sick contacts or recent travel. In the emergency room his vitals were remarkable for fever to 105, tachycardia to 115 but otherwise unremarkable except for mild hypertension. He was started on Zosyn and given 4 L of IV fluids. CT was performed which showed otitis externa, but no evidence of inner ear infection or abscess. He was admitted to Medicine under observation status for otitis externa. Discharge Providers Provider Date of admission: 06/07/19 16:10 Discharge Date: 06/09/19 Primary care physician: Laura Brantley DO Consults: 06/08/19 01:10 Consult to Respiratory Therapy Evaluate & Treat Comment: Hx COPD, Complains of SOB Physician Instructions: Evaluate and treat Discharge provider: Lorri Pearson DO Summary Hospital Course Hospital Course: Brandon Galo is a 69-year-old male cigar smoker with hypertension, hyperlipidemia, psoriasis (on methotrexate), paroxysmal atrial fibrillation status post cardioversion on aspirin only (after meeting with a bus assistant), and COPD who presented with chief complaint of severe right-sided ear and neck pain with associated fever, chills, mild nausea and weakness. 1. Severe sepsis secondary to possible Gram-positive bacteremia, present on admission. Resolved. -SOFA score was 2 on admission. 2. Acute right otitis externa with periauricular cellulitis, present on admission. Improving. -No concerning features including black discharge and no history of diabetes (hemoglobin A1c 5.2%). He meets SIRS criteria, SOFA score is 2 for Tbili and Platelet count. -Blood cultures from 06/07 and 06/08 positive for strep pyogenes. 06/09 blood cultures are pending. -Continued Zosyn 3.37 g every 6 hours and Vancomycin with dosing per pharmacist. Switched to ceftriaxone 2 g IV daily and clindamycin 900 mg every 8 hours x3 days per Infectious Disease at [facility] Dr. Edwards. -Continued cortisporin ear drops along with systemic therapy given cellulitis. -Continued IV fluids until adequately hydrated then discontinued. -Continued toradol prn for pain -TTE did not demonstrate any vegetations. Discussed case with on-call bus assistant Dr. Rios who recommended transfer for [facility] if it would potentially change treatment course duration. Discussed case with Dr. Edwards at [facility] who recommended [facility] to evaluate for endocarditis and if positive would change treatment course drastically. Recommended switching antibiotics as above. Patient was transfer for higher level of care. 3. Hypertension, chronic, present on admission. Stable. -Initially elevated likely secondary to pain. -Continued home diltiazem 120 mg daily, lisinopril/HCTZ, and carvedilol 6.25 mg twice daily. 4. Paroxysmal atrial fibrillation status post cardioversion, present on admission. Stable. -Patient is currently in sinus rhythm. -Continued aspirin 81 mg daily. Patient is not on anticoagulation 5. Hyperlipidemia, chronic, present on admission. Stable. -Continued home atorvastatin 10 mg daily. 6. Psoriasis, chronic, present on admission. Stable. -Held methotrexate currently, he usually takes 25 mg on Friday. Exam Vital Signs (past 8 hours): - 06/09/19 08:00 06/09/19 10:10 Temperature 98.5 F Pulse Rate 70 70 Respiratory Rate 16 16 Blood Pressure 147/71 H Pulse Oximetry 96 97 Fraction of Inspired Oxygen 21 Oxygen Delivery Method Nasal Cannula Oxygen Flow Rate 0 Narrative Exam Narrative: General: No acute distress, well-developed, well-nourished, appropriately interactive HEENT: Normocephalic, atraumatic. Significant right periauricular erythema and edema, right suborbital edema, no discrete abscess, no discharge from ear canal. His right ear is tender. Left ear is unremarkable. Pupils equal, round, and reactive to light. Anicteric sclerae, moist conjunctivae, and no lid lag. Oropharynx free of erythema and cobble stoning with moist mucosa. Neck: Supple with full range of motion. No jugular venous distension. No bruits. No lymphadenopathy or thyromegaly. Cardiovascular: Regular rate and rhythm with soft holosystolic murmur at LSB. No rubs or gallops appreciated Pulmonary: Clear to auscultation bilaterally without crackles, wheezes, or rhonchi. Normal respiratory effort with no use of accessory muscles. Abdomen: Soft, bowel sounds present, nontender, nondistended. No hepatosplenomegaly or masses appreciated. Extremities: No clubbing, cyanosis, or edema. Skin: Normal temperature, turgor, and texture; no rash, ulcers, or subcutaneous nodules appreciated. Neurological: Cranial nerves grossly intact. Psychiatric: Normal mood and affect. Alert and oriented to person, place, and time. Objective Labs Result Diagrams: 06/09/19 05:28 06/09/19 05:28 Labs: Laboratory Results - last 24 hr 06/09/19 06/09/19 06/09/19 05:28 05:28 05:28 WBC 6.3 RBC 3.89 L Hgb 11.8 L Hct 34.9 L MCV 89.8 MCH 30.3 MCHC 33.8 RDW 14.0 Plt Count 104 L Neut % (Auto) 78.3 H Lymph % (Auto) 12.1 L [place] % (Auto) 6.6 Eos % (Auto) 2.6 Baso % (Auto) 0.4 Neut # (Auto) 4900 Lymph # (Auto) 800 L [place] # (Auto) 400 Eos # (Auto) 200 Baso # (Auto) 0 Sodium 136 L Potassium 3.6 Chloride 103 Carbon Dioxide 26 BUN 12 Creatinine 0.90 Estimated GFR > 60.0 BUN/Creatinine Ratio 13.3 Glucose 113 H Calcium 8.2 L Phosphorus 2.6 Magnesium 2.1 Procalcitonin 1.76 H Vancomycin Trough 06/09/19 05:28 WBC RBC Hgb Hct MCV MCH MCHC RDW Plt Count Neut % (Auto) Lymph % (Auto) [place] % (Auto) Eos % (Auto) Baso % (Auto) Neut # (Auto) Lymph # (Auto) [place] # (Auto) Eos # (Auto) Baso # (Auto) Sodium Potassium Chloride Carbon Dioxide BUN Creatinine Estimated GFR BUN/Creatinine Ratio Glucose Calcium Phosphorus Magnesium Procalcitonin Vancomycin Trough < 5.0 L Discharge Plan Discharge Plan Patient Disposition: [facility] Transfer to: [facility] Under care of provider: Dr. Boateng hospitalist Discharge Med Rec/Prescriptions Prescriptions: New clindamycin in 5 % dextrose 900 mg/50 mL Piggyback 900 mg IV Q8H Qty: 1 RF: 0 zitqumqx-ixznbjfyp-DS 3.5-10,000-1 mg/mL-unit/mL-% Drops,Suspension 4 drops EAR-RIGHT TID Qty: 1 RF: 0 ceftriaxone in dextrose,iso-os 2 gram/50 mL Piggyback 2 gm IV Q24H Qty: 1 RF: 0 Continued aspirin 81 mg Tablet,Chewable 81 mg PO DAILY Qty: 0 RF: 0 folic acid 1 MG tablet 1 mg PO DAILY Qty: 0 RF: 0 carvedilol 6.25 mg tablet 6.25 mg PO BID RF: 0 atorvastatin 10 mg tablet 10 mg PO DAILY RF: 0 lisinopril-hydrochlorothiazide 20-12.5 mg tablet 1 tab PO DAILY RF: 0 sildenafil [Viagra] 100 mg tablet 0 mg PO PRN PRN (Reason: Erectile Dysfunction) RF: 0 diltiazem HCl 120 mg capsule,extended release 24 hr 120 mg PO DAILY RF: 0 methotrexate sodium 2.5 mg tablet 25 mg PO QWEEK RF: 0 ferrous sulfate 324 mg (65 mg iron) Tablet,Delayed Release (Dr/Ec) 65 mg PO Q OTHER DAY RF: 0 magnesium oxide 400 mg magnesium Tablet 400 mg PO DAILY RF: 0 Multivitamin Senior 1 tab PO DAILY RF: 0 Super Biotin 5,000 mg 5,000 mg PO DAILY RF: 0 Turmeric Curcumin 1,000 mg 1,000 mg PO DAILY RF: 0 Follow up/Referrals: Laura Brantley DO [Primary Care Provider] - Provider Discharge Instructions Diet: Diet as Tolerated, Low-fat, Low-sodium and Low-cholesterol Visit Report/Discharge Packet Instructions: Otitis Externa, DI for Sepsis -- Adult Discharge Data Primary Care Provider: Laura Brantley
[2019-06-09 15:20] VITALS: BP 144/85; PULSE 68; RESP 18; TEMP 37.6; O2SAT 94
--- NOTE | 2019-06-09 16:02 | CM.DPC ---
DCP: continued: Rn coordinator Allyssa reported pt transferred to [facility] this afternoon for higher level of specialty care.
--- NOTE | 2019-06-09 16:21 | PC.NURSE ---
Pt made aware he will be transfering to [facility]. Spouse is also aware he will be going. Pt is going there for cardiac services and he was given information same. He has had a bout of a-fib in the past and has a hx of a heart murmur. Heart murmur may or may not be worse. Information given to him about [facility]. Transport crew here and they were given report. Report called to Lindsay admitting nurse at [facility]. Discussed hospital course, skin about face, he will be seeing infectious disease MD while he is there also. Questions answered. Pt transfered to [facility]
== END 2019-06-09 16:00 | disposition short-term general hospital (02) | DRG 872 ==
LOC: ED 13:42 → AC 16:16
PROVIDERS: Admitting Provider Internal Medicine; Emergency Provider Emergency Medicine; PCP Family Medicine; Visit Provider Internal Medicine
DX: A41.9 Sepsis, unspecified organism (principal); Z68.41 Body mass index [BMI] 40.0-44.9, adult; R65.20 Severe sepsis without septic shock; H60.11 Cellulitis of right external ear; H66.91 Otitis media, unspecified, right ear; E66.9 Obesity, unspecified; I10 Essential (primary) hypertension; E78.5 Hyperlipidemia, unspecified; L40.9 Psoriasis, unspecified; F17.210 Nicotine dependence, cigarettes, uncomplicated; I48.0 Paroxysmal atrial fibrillation
CPT/HCPCS: 36415; 36591; 70480; 71045; 80048; 80053; 80202; 81001; 83036; 83605; 83735; 84100; 84145; 85025; 87040; 87150; 87186; 87205; 87400; 87502; 93306; 94640; 94660; 94760; 94762; 96365; 96375; 99283; 99284; J1644; J1885; J2543; J7613

== ENCOUNTER 2019-09-28 15:21 | Emergency (ER) | payer MEDICARE, OTHER, SELFPAY ==
[2019-06-07 16:52] VITALS: BMI 41.3
[2019-09-28 15:31] VITALS: BP 170/87; PULSE 109; RESP 21; TEMP 39.6; O2SAT 96; BMI 42.0
--- NOTE | 2019-09-28 15:31 | DI.RAD.S_ITS ---
PROCEDURE: XR CHEST 1V INDICATIONS: suspected sepsis TECHNIQUE: One view of the chest was acquired. COMPARISON: [facility], CR, XR CHEST 1V, 06/07/2019, 14:05. FINDINGS: Surgical changes and devices: None. Lungs and pleura: The increased attenuation within the medial right lung base is present. Interstitial prominence within the perihilar regions is noted. No effusion or pneumothorax is identified. Mediastinum: Mediastinal contours appear normal. Heart size is normal. Bones and chest wall: No suspicious bony lesions. Overlying soft tissues appear unremarkable. IMPRESSION: 1. Vague increased attenuation within the medial right lung base may represent pneumonia, aspiration, or atelectasis. Please correlate clinically. 2. Possible mild pulmonary edema. Dictated by: Sourav Priest M.D. on 09/28/2019 at 15:04 Approved by: Sourav Priest M.D. on 09/28/2019 at 15:05
[2019-09-28 15:33] VITALS: BP 170/87; PULSE 83; RESP 19; O2SAT 98
[2019-09-28] MEDS: SODIUM CHLORIDE 0.9% 1,000 ML 1000 ML IV (15:34)
--- NOTE | 2019-09-28 15:36 | ED_ITS ---
HPI - Fever General Chief Complaint: Fever Stated Complaint: fever Time Seen by Provider: 09/28/19 15:22 Source: patient Mode of arrival: Ambulatory Limitations: no limitations History of Present Illness HPI Narrative: Patient is a 69-year-old male with history of hypertension hyperlipidemia and psoriasis presenting with cough fever and body aches. He has been having increased body aches and fever along with cough ongoing for the last 2-3 days. He thinks maybe he is coughing up more stuff. He denies any chest pain but he does have some shortness of breath with exertion. He initially noted to be in AFib heart rate in the 110s, however while I was in the room he did convert back to sinus rhythm. He denies any nausea vomiting or abdominal pain. Related Data Home Medications Medication Instructions Recorded Confirmed aspirin 81 mg PO DAILY #0 04/10/12 09/28/19 folic acid 1 mg PO DAILY #0 04/10/12 09/28/19 Multivitamin Senior 1 tab PO DAILY 06/07/19 09/28/19 Super Biotin 5,000 mg PO DAILY 06/07/19 09/28/19 Turmeric Curcumin 1,000 mg PO DAILY 06/07/19 09/28/19 atorvastatin 10 mg PO DAILY 06/07/19 09/28/19 carvedilol 6.25 mg PO BID 06/07/19 09/28/19 diltiazem HCl 120 mg PO DAILY 06/07/19 09/28/19 ferrous sulfate 65 mg PO Q OTHER DAY 06/07/19 09/28/19 lisinopril-hydrochlorothiazide 1 tab PO DAILY 06/07/19 09/28/19 magnesium oxide 400 mg PO DAILY 06/07/19 09/28/19 methotrexate sodium 25 mg PO QWEEK 06/07/19 09/28/19 sildenafil [Viagra] 0 mg PO PRN PRN 06/07/19 09/28/19 albuterol sulfate [ProAir 1 inh INHALATION DIRECTED 09/28/19 09/28/19 RespiClick] Previous Rx's Medication Instructions Recorded doxycycline hyclate 100 mg PO BID #14 cap 09/28/19 Allergies Allergy/AdvReac Type Severity Reaction Status Date / Time levofloxacin [From LEVAQUIN] Allergy Unknown Verified 09/28/19 15:31 phenazopyridine Allergy Unknown Verified 09/28/19 15:31 Review of Systems Review of Systems ROS Unobtainable: All systems reviewed & are unremarkable except as noted in HPI and below Constitutional Constitutional: Reports body ache(s), Denies chills, Reports fever(s), Denies lethargy and Denies weakness Eyes Eyes: Denies change in vision, Denies eye discharge, Denies irritation and Denies loss of vision ENT Ears, Nose, Mouth, and Throat: Denies change in voice, Denies neck pain and Denies sore throat Cardiovascular Cardiovascular: Denies chest pain, Denies irregular heart rhythm, Denies lig htheadedness, Denies palpitations, Reports dyspnea and Denies orthopnea Respiratory Respiratory: Reports cough and Reports dyspnea Gastrointestinal Gastrointestinal: Denies abdominal pain, Denies change in bowel habits, Denies diarrhea, Denies nausea and Denies vomiting Genitourinary Genitourinary: Denies hematuria, Denies flank pain, Denies urinary incontinence and Denies urinary urgency Musculoskeletal Musculoskeletal: Denies neck pain Integumentary/Breasts Skin/Breast: Denies pruritus, Denies erythema, Denies rash and Denies wounds Neurologic Neurologic: Denies confusion, Denies loss of vision and Denies weakness Psychiatric Psychiatric: Denies anxiety, Denies confusion, Denies depression, Denies homicidal ideation and Denies suicidal ideation Endocrine Endocrine: Denies palpitations Patient History Medical History Atrial fibrillation (Acute) COPD (chronic obstructive pulmonary disease) (Acute) HLD (hyperlipidemia) (Acute) HTN (hypertension) (Acute) Psoriasis (Acute) Social History household members: friend(s) Smoking Status: Current every day smoker alcohol intake: current Smoking Status: Current every day smoker alcohol intake frequency: a few times a week Substance Use Type: does not use Exam Initial Vital Signs Initial Vital Signs: Vital Signs Temperature 103.3 F H 09/28/19 15:31 Pulse Rate 109 H 09/28/19 15:31 Respiratory Rate 21 09/28/19 15:31 Blood Pressure 170/87 H 09/28/19 15:31 Pulse Oximetry 96 09/28/19 15:31 GENERAL: Alert male appears to not feel well HEENT: Head atraumatic,EOMI, pupils reactive, face symmetric, moist mucous membranes CARDIOVASCULAR: Irregularly irregular tachycardic RESPIRATORY: Breath sounds equal bilaterally, no wheezes rales or rhonchi. ABDOMEN: Soft, nontender. Normoactive bowel sounds all 4 quadrants. No guarding or rebound. EXTREMITIES: Normal range of motion, no clubbing or edema. Neurovascularly intact NEUROLOGICAL: Alert and oriented x4.Normal gait and speech. Cranial nerves II through XII grossly intact. SKIN: Warm, dry, no laceration, no petechiae, no rashes or lesions. Scores CURB-65 Confusion: No BUN >19mg/dL (>7mmol/L): No Respiratory rate greater or equal to 30: No SBP <90mmHg or DBP less or equal to 60mmHg: No Age 65 or Older: Yes CURB-65 Total: 1 Score 0-1 Outpatient care, Score 2 Inpt vs. Obs, Score 3 or over Inpt admit with ICU for score of 4-5 Course Orders Ordered: ED Orders 09/28/19 15:30 Complete Blood Count AUTO DIFF Stat Comprehensive Metabolic Panel Stat Influenza A & B (PCR) Stat Lactate (Lactic Acid) Stat Lipase Stat Partial Thromboplastin Time Stat Procalcitonin Stat Prothrombin Time INR Stat 09/28/19 15:31 XR chest 1V Stat EKG-12 Lead Stat RT Consult Eval and Treat Now 09/28/19 16:24 Blood Culture Stat Discontinued Medications Acetaminophen (Tylenol) 975 mg PO NOW ONE Stop: 09/28/19 15:32 Last Admin: 09/28/19 15:38 Dose: 975 mg Documented by: CAPRI Sodium Chloride (Normal Saline 0.9%) 1,000 mls @ 1,000 mls/hr IV BOLUS ONE Stop: 09/28/19 16:30 Last Infusion: 09/28/19 17:38 Dose: 0 mls/hr Documented by: Admin: 09/28/19 15:34 Dose: 1,000 mls/hr Documented by: FRANCIS Vital Signs Vital signs: Vital Signs - 8 hr 09/28/19 15:31 09/28/19 15:33 09/28/19 15:38 Temperature 103.3 F H 103.3 F H Pulse Rate 109 H 83 Respiratory Rate 21 19 Blood Pressure 170/87 H Blood Pressure [Left Arm] 170/87 H Pulse Oximetry 96 98 01/14/20 16:21 09/28/19 17:00 09/28/19 17:38 Temperature 102.2 F H 102.0 F H 100.8 F H Pulse Rate 90 97 H Respiratory Rate 13 14 Blood Pressure Blood Pressure [Left Arm] 153/81 H 153/81 H Pulse Oximetry 96 98 MDM - Fever Lab Data Attestation: I reviewed the patient's lab results. Result diagrams: 09/28/19 15:30 09/28/19 15:30 Labs: Lab Results 09/28/19 09/28/19 09/28/19 Range/Units 15:30 15:30 15:30 WBC 10.7 (4.5-11.0) X10^3/uL RBC 4.86 (4.5-5.9) X10^6/uL Hgb 14.7 (13.5-17.5) g/dL Hct 42.5 (41-53) % MCV 87.4 (80-100) fL MCH 30.2 (26-34) PG MCHC 34.6 (30-36) % RDW 14.1 (11.6-14.8) % Plt Count 154 (150-400) X10^3/uL Neut % (Auto) 91.6 H (50-75) % Lymph % (Auto) 3.9 L (25-40) % [place] % (Auto) 4.0 (3-14) % Eos % (Auto) 0.0 L (2-4) % Baso % (Auto) 0.5 (0-2) % Neut # (Auto) 9800 H (5526-3346) /uL Lymph # (Auto) 400 L (4096-4053) /uL [place] # (Auto) 400 (0-900) /uL Eos # (Auto) 0 (0-450) /uL Baso # (Auto) 100 (0-100) /uL PT 12.5 (10.1-12.7) SECONDS INR 1.1 (0.9-1.3) APTT 30 (26.4-36.2) SECONDS Sodium (137-145) mmol/L Potassium (3.4-5.1) mmol/L Chloride (98-107) mmol/L Carbon Dioxide (22-32) mmol/L BUN (9-20) mg/dL Creatinine (0.66-1.25) mg/dL Estimated GFR (>60) mL/min BUN/Creatinine Ratio (6-22) Glucose (80-110) mg/dL Lactate (0.7-2.1) mmol/L Calcium (8.4-10.2) mg/dL Total Bilirubin (0.2-1.3) mg/dL AST (17-59) IU/L ALT (<50) IU/L Alkaline Phosphatase (38-126) U/L Total Protein (6.3-8.2) g/dL Albumin (3.5-5.0) g/dL Globulin (1.7-4.1) g/dL Albumin/Globulin Ratio (1.0-2.8) Lipase (23-300) U/L Procalcitonin 0.44 (<0.5) ng/mL Influenza A (RT-PCR) (NEGATIVE) Influenza B (RT-PCR) (NEGATIVE) 09/28/19 09/28/19 09/28/19 Range/Units 15:30 15:30 15:30 WBC (4.5-11.0) X10^3/uL RBC (4.5-5.9) X10^6/uL Hgb (13.5-17.5) g/dL Hct (41-53) % MCV (80-100) fL MCH (26-34) PG MCHC (30-36) % RDW (11.6-14.8) % Plt Count (150-400) X10^3/uL Neut % (Auto) (50-75) % Lymph % (Auto) (25-40) % [place] % (Auto) (3-14) % Eos % (Auto) (2-4) % Baso % (Auto) (0-2) % Neut # (Auto) (3186-0699) /uL Lymph # (Auto) (7940-7321) /uL [place] # (Auto) (0-900) /uL Eos # (Auto) (0-450) /uL Baso # (Auto) (0-100) /uL PT (10.1-12.7) SECONDS INR (0.9-1.3) APTT (26.4-36.2) SECONDS Sodium 132 L (137-145) mmol/L Potassium 3.7 (3.4-5.1) mmol/L Chloride 97 L (98-107) mmol/L Carbon Dioxide 25 (22-32) mmol/L BUN 12 (9-20) mg/dL Creatinine 0.90 (0.66-1.25) mg/dL Estimated GFR > 60.0 (>60) mL/min BUN/Creatinine Ratio 13.3 (6-22) Glucose 150 H (80-110) mg/dL Lactate 1.6 (0.7-2.1) mmol/L Calcium 8.8 (8.4-10.2) mg/dL Total Bilirubin 1.4 H (0.2-1.3) mg/dL AST 43 (17-59) IU/L ALT 42 (<50) IU/L Alkaline Phosphatase 81 (38-126) U/L Total Protein 7.6 (6.3-8.2) g/dL Albumin 4.4 (3.5-5.0) g/dL Globulin 3.2 (1.7-4.1) g/dL Albumin/Globulin Ratio 1.4 (1.0-2.8) Lipase 22 L (23-300) U/L Procalcitonin (<0.5) ng/mL Influenza A (RT-PCR) Flu a negative (NEGATIVE) Influenza B (RT-PCR) Flu b negative (NEGATIVE) Imaging Data Chest x-ray: Radiologist's Impression: PROCEDURE: XR CHEST 1V INDICATIONS: suspected sepsis TECHNIQUE: One view of the chest was acquired. COMPARISON: [facility], , XR CHEST 1V, 06/07/2019, 14:05. FINDINGS: Surgical changes and devices: None. Lungs and pleura: The increased attenuation within the medial right lung base is present. Interstitial prominence within the perihilar regions is noted. No effusion or pneumothorax is identified. Mediastinum: Mediastinal contours appear normal. Heart size is normal. Bones and chest wall: No suspicious bony lesions. Overlying soft tissues appear unremarkable. IMPRESSION: 1. Vague increased attenuation within the medial right lung base may represent pneumonia, aspiration, or atelectasis. Please correlate clinically. 2. Possible mild pulmonary edema. Dictated by: Sourav Priest M.D. on 09/28/2019 at 15:04 MDM Narrative Medical decision making narrative: Patient does meet SIRS criteria with tachycardia and fever, however both improved with fluids and is fever control. He does have pneumonia on x-ray with an elevated procalcitonin no leukocytosis. He is given doxycycline for the pneumonia. I've discussed warning signs and when he returns to the ED. Discharge Plan Departure Patient Disposition: Home Clinical Impression: Atypical pneumonia Discharge Date/Time: 09/28/19 17:45 Instructions: Atypical Pneumonia Activity Restrictions/Additional Instructions: *You have been diagnosed with atypical pneumonia *What to do: Rest, fever control, increase fluid *Continue to take medications as directed--> SENT TO [facility] IN [place] Doxycycline 100 mg twice a day for 7 days *Follow up with your primary care provider in 2-3 days *Return to ER if you should have increased confusion decreased intake fever not controlled increased shortness of breath or any new, worsening or concerning symptoms Prescriptions: New doxycycline hyclate 100 mg capsule 100 mg PO BID Qty: 14 RF: 0 No Action aspirin 81 mg Tablet,Chewable 81 mg PO DAILY Qty: 0 RF: 0 folic acid 1 MG tablet 1 mg PO DAILY Qty: 0 RF: 0 carvedilol 6.25 mg tablet 6.25 mg PO BID RF: 0 atorvastatin 10 mg tablet 10 mg PO DAILY RF: 0 lisinopril-hydrochlorothiazide 20-12.5 mg tablet 1 tab PO DAILY RF: 0 sildenafil [Viagra] 100 mg tablet 0 mg PO PRN PRN (Reason: Erectile Dysfunction) RF: 0 diltiazem HCl 120 mg capsule,extended release 24 hr 120 mg PO DAILY RF: 0 methotrexate sodium 2.5 mg tablet 25 mg PO QWEEK RF: 0 ferrous sulfate 324 mg (65 mg iron) Tablet,Delayed Release (Dr/Ec) 65 mg PO Q OTHER DAY RF: 0 magnesium oxide 400 mg magnesium Tablet 400 mg PO DAILY RF: 0 Multivitamin Senior 1 tab PO DAILY RF: 0 Super Biotin 5,000 mg 5,000 mg PO DAILY RF: 0 Turmeric Curcumin 1,000 mg 1,000 mg PO DAILY RF: 0 ProAir RespiClick 90 mcg/actuation aerosol powdr breath activated 1 inh INHALATION DIRECTED RF: 0 Referrals: Laura Brantley DO [Primary Care Provider] -
[2019-09-28 15:38] VITALS: TEMP 39.6
[2019-09-28] MEDS: ACETAMINOPHEN 325 MG TABLET 975 MG PO (15:38)
[2019-09-28 15:42] LABS: Add Manual Diff / Slide Review NO; Basophils Absolute Auto 100 /uL (0-100); Basophils Percent Auto 0.5 % (0-2); Eosinophils Absolute Auto 0 /uL (0-450); Hematocrit 42.5 % (41-53); Hemoglobin 14.7 g/dL (13.5-17.5); Lymphocytes Absolute Auto 400 /uL (1100-4500); Lymphocytes Percent Auto 3.9 % (25-40); Mean Corpuscular HGB Conc 34.6 % (30-36); Mean Corpuscular Hemoglobin 30.2 PG (26-34); Mean Corpuscular Volume 87.4 fL (80-100); Monocytes Absolute Auto 400 /uL (0-900); Neutrophils Absolute Auto 9800 /uL (1500-7000); Neutrophils Percent Auto 91.6 % (50-75); Platelet Count 154 X10^3/uL (150-400); Red Blood Cell Count 4.86 X10^6/uL (4.5-5.9); Red Cell Distribution Width 14.1 % (11.6-14.8); White Blood Cell Count 10.7 X10^3/uL (4.5-11.0)
[2019-09-28 15:43] LABS: INR 1.1 (0.9-1.3); Prothrombin Time 12.5 SECONDS (10.1-12.7)
[2019-09-28 15:46] LABS: PTT Partial Thromboplastin Tim 30 SECONDS (26.4-36.2)
[2019-09-28 15:53] LABS: Alanine Aminotransferase 42 IU/L (<50); Albumin 4.4 g/dL (3.5-5.0); Albumin Globulin Ratio 1.4 (1.0-2.8); Alkaline Phosphatase 81 U/L (38-126); Aspartate Aminotransferase 43 IU/L (17-59); BUN Creatinine Ratio 13.3 (6-22); Bilirubin Total 1.4 mg/dL (0.2-1.3); Blood Urea Nitrogen 12 mg/dL (9-20); Calcium 8.8 mg/dL (8.4-10.2); Carbon Dioxide 25 mmol/L (22-32); Chloride 97 mmol/L (98-107); Estimated Glomerular Filt Rate > 60.0 mL/min (>60); Globulin 3.2 g/dL (1.7-4.1); Glucose 150 mg/dL (80-110); HEMOLYSIS < 15 (0-50); Lactate (Lactic Acid) 1.6 mmol/L (0.7-2.1); Lipase 22 U/L (23-300); Potassium 3.7 mmol/L (3.4-5.1); Sodium 132 mmol/L (137-145); Total Protein 7.6 g/dL (6.3-8.2)
[2019-09-28 16:14] LABS: Influenza A - CEPHEID Flu A NEGATIVE (NEGATIVE); Influenza B - CEPHEID Flu B NEGATIVE (NEGATIVE)
[2019-09-28 16:20] LABS: Procalcitonin 0.44 ng/mL (<0.5)
[2019-09-28 16:21] VITALS: TEMP 39
[2019-09-28 17:00] VITALS: BP 153/81; PULSE 90; RESP 13; TEMP 38.9; O2SAT 96
[2019-09-28 17:38] VITALS: BP 153/81; PULSE 97; RESP 14; TEMP 38.2; O2SAT 98
[2019-09-29 05:41] LABS: Acinetobacter baumannii Not Detected (Not Detect); Enterococcus species Not Detected (Not Detect); Listeria monocytogenes Not Detected (Not Detect); Staphylococcus species Not Detected (Not Detect); Streptococcus agalactiae (Gr B Not Detected (Not Detect); Streptococcus pneumonia Not Detected (Not Detect); Streptococcus pyogenes (Gr A) Not Detected (Not Detect); Streptococcus species Not Detected (Not Detect)
[2019-09-29 05:42] LABS: Candida albicans Not Detected (Not Detect); Candida glabrata Not Detected (Not Detect); Candida krusei Not Detected (Not Detect); Candida parapsilosis Not Detected (Not Detect); Candida tropicalis Not Detected (Not Detect); E. coli Detected (Not Detect); Enterobacter cloacae complex Not Detected (Not Detect); Enterobacteriaceae species Detected (Not Detect); Haemophilus influenzae Not Detected (Not Detect); KPC (carbapenem-resist gene) Not Detected (Not Detect); Neisseria meningitidis Not Detected (Not Detect); Proteus species Not Detected (Not Detect); Pseudomonas aeruginosa Not Detected (Not Detect); Serratia marcescens Not Detected (Not Detect)
== END 2019-09-28 17:45 | disposition home or self-care (01) ==
PROVIDERS: Emergency Provider Emergency Medicine; PCP Family Medicine
DX: J18.9 Pneumonia, unspecified organism (principal); R00.0 Tachycardia, unspecified; R50.9 Fever, unspecified
CPT/HCPCS: 36415; 71045; 80053; 83605; 83690; 84145; 85025; 85610; 85730; 87040; 87150; 87205; 87502; 93005; 96360; 96361; 99284; 99285

== ENCOUNTER 2019-09-30 10:55 | Inpatient (IN) | payer MEDICARE, OTHER, SELFPAY ==
[2019-06-07 16:52] VITALS: BMI 41.3
[2019-09-30] VITALS (8 sets, daily range): BP systolic 113–156; BP diastolic 64–92; PULSE 70–92; RESP 12–20; TEMP 36.7–37.4; O2SAT 92–97; BMI 40.6
--- NOTE | 2019-09-30 11:21 | DI.RAD.S_ITS ---
PROCEDURE: XR CHEST 1V INDICATIONS: suspected sepsis TECHNIQUE: One view of the chest was acquired. COMPARISON: [facility], CR, XR CHEST 1V, 09/28/2019, 15:40. FINDINGS: Surgical changes and devices: None. Lungs and pleura: Lungs are clear. No pleural effusions or pneumothorax. Mediastinum: Mediastinal contours appear normal. Heart size is normal. Bones and chest wall: No suspicious bony lesions. Overlying soft tissues appear unremarkable. IMPRESSION: No acute cardiopulmonar pathology. Dictated by: Kip Albert M.D. on 09/30/2019 at 12:00 Approved by: Kip Albert M.D. on 09/30/2019 at 12:02
[2019-09-30 11:34] LABS: Add Manual Diff / Slide Review NO; Basophils Absolute Auto 0 /uL (0-100); Basophils Percent Auto 0.3 % (0-2); Eosinophils Absolute Auto 100 /uL (0-450); Eosinophils Percent Auto 0.8 % (2-4); Hematocrit 39.4 % (41-53); Hemoglobin 13.4 g/dL (13.5-17.5); Lymphocytes Absolute Auto 600 /uL (1100-4500); Lymphocytes Percent Auto 9.5 % (25-40); Mean Corpuscular HGB Conc 34.1 % (30-36); Mean Corpuscular Hemoglobin 30.1 PG (26-34); Mean Corpuscular Volume 88.3 fL (80-100); Monocytes Absolute Auto 600 /uL (0-900); Monocytes Percent Auto 9.5 % (3-14); Neutrophils Absolute Auto 5100 /uL (1500-7000); Neutrophils Percent Auto 79.9 % (50-75); Platelet Count 127 X10^3/uL (150-400); Red Blood Cell Count 4.46 X10^6/uL (4.5-5.9); Red Cell Distribution Width 14.8 % (11.6-14.8); White Blood Cell Count 6.4 X10^3/uL (4.5-11.0)
[2019-09-30 11:39] LABS: INR 1.1 (0.9-1.3); Prothrombin Time 12.3 SECONDS (10.1-12.7)
[2019-09-30 11:41] LABS: PTT Partial Thromboplastin Tim 31 SECONDS (26.4-36.2)
[2019-09-30 11:44] LABS: Alanine Aminotransferase 52 IU/L (<50); Albumin 3.7 g/dL (3.5-5.0); Albumin Globulin Ratio 1.2 (1.0-2.8); Alkaline Phosphatase 80 U/L (38-126); Aspartate Aminotransferase 45 IU/L (17-59); BUN Creatinine Ratio 16.7 (6-22); Bilirubin Total 0.5 mg/dL (0.2-1.3); Blood Urea Nitrogen 15 mg/dL (9-20); Calcium 8.7 mg/dL (8.4-10.2); Carbon Dioxide 27 mmol/L (22-32); Chloride 103 mmol/L (98-107); Estimated Glomerular Filt Rate > 60.0 mL/min (>60); Globulin 3.1 g/dL (1.7-4.1); Glucose 142 mg/dL (80-110); HEMOLYSIS < 15 (0-50); Lactate (Lactic Acid) 1.8 mmol/L (0.7-2.1); Lipase 33 U/L (23-300); Potassium 3.5 mmol/L (3.4-5.1); Sodium 137 mmol/L (137-145); Total Protein 6.8 g/dL (6.3-8.2)
[2019-09-30] MEDS: SODIUM CHLORIDE 0.9% 1,000 ML 1000 ML IV (12:01)
[2019-09-30 12:02] LABS: Procalcitonin 0.91 ng/mL (<0.5)
[2019-09-30] MEDS: CEFTRIAXONE 2 GM/50 ML FROZ.PIGGY IV (12:51)
--- NOTE | 2019-09-30 14:13 | ED.SOB ---
HPI - SOB/Dyspnea General Chief Complaint: Shortness of Breath/Dyspnea Stated Complaint: IV ANTIBIOTICS Time Seen by Provider: 09/30/19 11:23 Source: patient and family Mode of arrival: Ambulatory Limitations: no limitations History of Present Illness HPI Narrative: Patient comes emergency department after being called to return for positive blood cultures. The patient was seen 2 days ago for cough and ultimately, diagnosed with pneumonia. He was started on doxycycline and discharged home. He had good oxygen saturation was hemodynamically stable that time. The patient was worked up in part with blood cultures while here, and blood cultures came back showing initially, Gram-negative bacteria, and ultimately, Klebsiella and E coli. Attempts to contact the patient started yesterday morning, but patient was not able to be successfully contacted until yesterday evening. At that time, he stated he was feeling better, and that they preferred not to drive in on the snowy, icy roads. Patient states he has still been having a feeling of fevers, and has measured up to 101 since being seen here 2 days ago. He has also had night sweats. He states that his cough seems to be a little bit better, however. Related Data Home Medications Medication Instructions Recorded Confirmed aspirin 81 mg PO DAILY #0 04/10/12 09/30/19 folic acid 1 mg PO DAILY #0 04/10/12 09/30/19 Multivitamin Senior 1 tab PO DAILY 06/07/19 09/30/19 Turmeric Curcumin 1,000 mg PO DAILY 06/07/19 09/30/19 atorvastatin 10 mg PO DAILY 06/07/19 09/30/19 carvedilol 6.25 mg PO BID 06/07/19 09/30/19 diltiazem HCl 120 mg PO DAILY 06/07/19 09/30/19 ferrous sulfate 65 mg PO Q OTHER DAY 06/07/19 09/30/19 lisinopril-hydrochlorothiazide 1 tab PO DAILY 06/07/19 09/30/19 magnesium oxide 400 mg PO DAILY 06/07/19 09/30/19 methotrexate sodium 25 mg PO QWEEK 06/07/19 09/30/19 sildenafil [Viagra] 0 mg PO PRN PRN 06/07/19 09/30/19 albuterol sulfate [ProAir 1 inh INHALATION DIRECTED 09/28/19 09/30/19 RespiClick] Previous Rx's Medication Instructions Recorded doxycycline hyclate 100 mg PO BID #14 cap 09/28/19 Allergies Allergy/AdvReac Type Severity Reaction Status Date / Time levofloxacin [From LEVAQUIN] Allergy Unknown Verified 09/28/19 15:31 phenazopyridine Allergy Unknown Verified 09/28/19 15:31 Review of Systems Constitutional Constitutional: Denies chills, Denies fatigue, Reports fever(s), Denies frequent falls, Denies lethargy and Denies weakness Eyes Eyes: Denies change in vision, Denies eye discharge, Denies irritation and Denies loss of vision ENT Ears, Nose, Mouth, and Throat: Denies change in voice, Denies dizziness, Denies neck pain, Denies sore throat and Denies throat swelling Cardiovascular Cardiovascular: Denies chest pain, Denies irregular heart rhythm, Denies lightheadedness, Denies palpitations, Denies dyspnea, Denies dyspnea on exertion and Denies orthopnea Respiratory Respiratory: Denies cough, Denies dyspnea, Denies dyspnea on exertion and Denies wheezing Gastrointestinal Gastrointestinal: Denies abdominal pain, Denies change in bowel habits, Denies diarrhea, Denies nausea and Denies vomiting Genitourinary Genitourinary: Denies hematuria, Denies flank pain, Denies urinary incontinence and Denies urinary urgency Musculoskeletal Musculoskeletal: Denies back pain, Denies muscle weakness, Denies neck pain, Denies numbness and Denies tingling Integumentary/Breasts Skin/Breast: Denies pruritus, Denies erythema, Denies rash and Denies wounds Comments: Sweating Neurologic Neurologic: Denies behavioral changes, Denies confusion, Denies dizziness, Denies frequent falls, Denies loss of vision, Denies numbness, Denies tingling and Denies weakness Psychiatric Psychiatric: Denies anxiety, Denies behavioral changes, Denies confusion, Denies depression, Denies homicidal ideation and Denies suicidal ideation Endocrine Endocrine: Denies fatigue, Denies flushing and Denies palpitations Hematologic/Lymphatic Hematologic/Lymphatic: Denies easy bruising Allergic/Immunologic Allergic/Immunologic: Denies urticaria, Denies throat swelling and Denies wheezing Patient History Medical History Atrial fibrillation (Acute) COPD (chronic obstructive pulmonary disease) (Acute) HLD (hyperlipidemia) (Acute) HTN (hypertension) (Acute) Psoriasis (Acute) Social History household members: friend(s) Smoking Status: Current every day smoker alcohol intake: current Smoking Status: Current every day smoker tobacco type: cigars alcohol intake frequency: a few times a week Alcohol type: beer Substance Use Type: does not use Exam Initial Vital Signs Initial Vital Signs: Vital Signs Temperature 98.1 F 09/30/19 11:30 Pulse Rate 92 H 09/30/19 11:30 Respiratory Rate 18 09/30/19 11:30 Blood Pressure 116/74 09/30/19 11:30 Pulse Oximetry 92 09/30/19 11:30 Const General: cooperative and well developed Nutritional Appearance: well nourished HENMS Head: normocephalic and atraumatic Ears: external ears normal Nose: external nose normal and No nasal discharge Face and sinus: face symmetric and No dry mucous membranes Mouth: oral mucosae normal and moist mucous membranes Teeth and gingiva: dentition normal Eyes General: appearance normal, both eyes and all related structures Eyelids: eyelids normal Conjunctivae: conjunctivae normal Sclera: sclerae normal Pupils: PERRL EOM: EOM intact bilaterally Neck Neck: normal visual inspection, trachea midline, No lymphadenopathy, No midline deformity and No JVD Lymphatic: No lymphedema Chest Chest: normal inspection of the chest Resp Effort & Inspection: normal respiratory effort, able to speak in complete sentences, no respiratory distress and no use of accessory muscles Auscultation: clear to auscultation bilaterally, no rales, no rhonchi and no wheezes Cardio Rate: regular rate Rhythm: regular rhythm Heart Sounds: no click, no gallops, no murmurs and no rubs Pulses: normal peripheral pulses GI Inspection: non-distended Palpation: soft, no hepatosplenomegaly, No guarding, No pulsatile mass and No tender Auscultation: normal bowel sounds Back/Spine/Pelvis Back: No CVA tenderness Cervical Spine: cervical ROM normal and No pain with cervical ROM Thoracic/Lumbar Spine: thoracic and lumbar spine normal to inspection Skin General: no rashes or lesions noted, No jaundice and No petechiae Neuro General: alert, oriented x3, gait normal and no focal motor deficits Speech: speech normal Extrem General: full ROM, no clubbing, cyanosis or edema, no pedal edema and no calf tenderness Psych Appearance: well kempt Mental Status: mental status grossly normal Attitude: cooperative Thought Content: normal and suicidality Judgment: judgment good Course Course Course Narrative: The patient was actually quite well appearing, but the presence of gram-negative bacteria in 2 bottles of blood was concerning. As such, I felt patient should be admitted to the hospital for IV antibiotics. Blood cultures were repeated today under pending at this time. I spoke with Dr. Barnes who is in agreement and he did accept the patient for admission. I discussed the plan with the patient and his , who are also agreeable. Orders Ordered: ED Orders 09/30/19 11:21 XR chest 1V Stat 09/30/19 11:25 Complete Blood Count AUTO DIFF Stat Comprehensive Metabolic Panel Stat Lactate (Lactic Acid) Stat Lipase Stat Partial Thromboplastin Time Stat Procalcitonin Stat Prothrombin Time INR Stat 09/30/19 11:36 EKG-12 Lead Stat 09/30/19 11:42 Blood Culture Stat Acetaminophen (Tylenol) 650 mg PO Q6HR PRN PRN Reason: Fever/Mild Pain (1-3) Last Admin: 09/30/19 16:01 Dose: 650 mg Documented by: DEDRA Aspirin (Aspirin Chew) 81 mg PO DAILY SONYA Atorvastatin Calcium (Lipitor) 10 mg PO DAILY [facility] Carvedilol (Coreg) 6.25 mg PO BID SONYA Diltiazem HCl (Cardizem Cd) 120 mg PO DAILY [facility] Enoxaparin Sodium (Lovenox) 40 mg SUBCUT DAILY [facility] Folic Acid (Folic Acid) 1 mg PO DAILY [facility] Hydrochlorothiazide (Hydrochlorothiazide) 12.5 mg PO DAILY [facility] Ceftriaxone Sodium/Dextrose (Rocephin) 2 gm in 50 mls @ 100 mls/hr IV Q24H SONYA Lisinopril (Zestril) 20 mg PO DAILY SONYA Magnesium Oxide (Mag Ox) 400 mg PO DAILY SONYA Multivitamins (Tab-A-Nicole) 1 tab PO DAILY SONYA Discontinued Medications Sodium Chloride (Normal Saline 0.9%) 1,000 mls @ 1,000 mls/hr IV BOLUS ONE Stop: 09/30/19 12:20 Last Infusion: 09/30/19 13:35 Dose: 0 mls/hr Documented by: Admin: 09/30/19 12:01 Dose: 1,000 mls/hr Documented by: ISABELLA Ceftriaxone Sodium/Dextrose (Rocephin) 2 gm in 50 mls @ 100 mls/hr IV NOW ONE Stop: 09/30/19 13:14 Last Infusion: 09/30/19 13:36 Dose: 0 mls/hr Documented by: Admin: 09/30/19 12:51 Dose: 100 mls/hr Documented by: ISABELLA Vital Signs Vital signs: Vital Signs - 8 hr 09/30/19 12:00 09/30/19 12:30 09/30/19 13:00 Pulse Rate 74 70 70 Respiratory Rate 16 15 16 Blood Pressure [Right Arm] 113/66 125/76 122/70 Pulse Oximetry 95 96 96 09/30/19 13:42 Pulse Rate 77 Respiratory Rate 12 Blood Pressure [Right Arm] 142/71 H Pulse Oximetry 97 MDM - SOB/Dyspnea Medical Records Attestation: I reviewed the patient's medical records. Lab Data Attestation: I reviewed the patient's lab results. Result diagrams: 09/30/19 11:25 09/30/19 11:25 Labs: Lab Results 09/30/19 09/30/19 09/30/19 Range/Units 11:25 11:25 11:25 WBC 6.4 (4.5-11.0) X10^3/uL RBC 4.46 L (4.5-5.9) X10^6/uL Hgb 13.4 L (13.5-17.5) g/dL Hct 39.4 L (41-53) % MCV 88.3 (80-100) fL MCH 30.1 (26-34) PG MCHC 34.1 (30-36) % RDW 14.8 (11.6-14.8) % Plt Count 127 L (150-400) X10^3/uL Neut % (Auto) 79.9 H (50-75) % Lymph % (Auto) 9.5 L (25-40) % [place] % (Auto) 9.5 (3-14) % Eos % (Auto) 0.8 L (2-4) % Baso % (Auto) 0.3 (0-2) % Neut # (Auto) 5100 (9785-8176) /uL Lymph # (Auto) 600 L (7089-6159) /uL [place] # (Auto) 600 (0-900) /uL Eos # (Auto) 100 (0-450) /uL Baso # (Auto) 0 (0-100) /uL PT 12.3 (10.1-12.7) SECONDS INR 1.1 (0.9-1.3) APTT 31 (26.4-36.2) SECONDS Sodium (137-145) mmol/L Potassium (3.4-5.1) mmol/L Chloride (98-107) mmol/L Carbon Dioxide (22-32) mmol/L BUN (9-20) mg/dL Creatinine (0.66-1.25) mg/dL Estimated GFR (>60) mL/min BUN/Creatinine Ratio (6-22) Glucose (80-110) mg/dL Lactate (0.7-2.1) mmol/L Calcium (8.4-10.2) mg/dL Total Bilirubin (0.2-1.3) mg/dL AST (17-59) IU/L ALT (<50) IU/L Alkaline Phosphatase (38-126) U/L Total Protein (6.3-8.2) g/dL Albumin (3.5-5.0) g/dL Globulin (1.7-4.1) g/dL Albumin/Globulin Ratio (1.0-2.8) Lipase (23-300) U/L Procalcitonin 0.91 H (<0.5) ng/mL 09/30/19 09/30/19 Range/Units 11:25 11:25 WBC (4.5-11.0) X10^3/uL RBC (4.5-5.9) X10^6/uL Hgb (13.5-17.5) g/dL Hct (41-53) % MCV (80-100) fL MCH (26-34) PG MCHC (30-36) % RDW (11.6-14.8) % Plt Count (150-400) X10^3/uL Neut % (Auto) (50-75) % Lymph % (Auto) (25-40) % [place] % (Auto) (3-14) % Eos % (Auto) (2-4) % Baso % (Auto) (0-2) % Neut # (Auto) (2859-8317) /uL Lymph # (Auto) (0655-4692) /uL [place] # (Auto) (0-900) /uL Eos # (Auto) (0-450) /uL Baso # (Auto) (0-100) /uL PT (10.1-12.7) SECONDS INR (0.9-1.3) APTT (26.4-36.2) SECONDS Sodium 137 (137-145) mmol/L Potassium 3.5 (3.4-5.1) mmol/L Chloride 103 (98-107) mmol/L Carbon Dioxide 27 (22-32) mmol/L BUN 15 (9-20) mg/dL Creatinine 0.90 (0.66-1.25) mg/dL Estimated GFR > 60.0 (>60) mL/min BUN/Creatinine Ratio 16.7 (6-22) Glucose 142 H (80-110) mg/dL Lactate 1.8 (0.7-2.1) mmol/L Calcium 8.7 (8.4-10.2) mg/dL Total Bilirubin 0.5 (0.2-1.3) mg/dL AST 45 (17-59) IU/L ALT 52 H (<50) IU/L Alkaline Phosphatase 80 (38-126) U/L Total Protein 6.8 (6.3-8.2) g/dL Albumin 3.7 (3.5-5.0) g/dL Globulin 3.1 (1.7-4.1) g/dL Albumin/Globulin Ratio 1.2 (1.0-2.8) Lipase 33 (23-300) U/L Procalcitonin (<0.5) ng/mL Imaging Data Chest x-ray: Radiologist's Impression: PROCEDURE: XR CHEST 1V INDICATIONS: suspected sepsis TECHNIQUE: One view of the chest was acquired. COMPARISON: [facility], , XR CHEST 1V, 09/28/2019, 15:40. FINDINGS: Surgical changes and devices: None. Lungs and pleura: Lungs are clear. No pleural effusions or pneumothorax. Mediastinum: Mediastinal contours appear normal. Heart size is normal. Bones and chest wall: No suspicious bony lesions. Overlying soft tissues appear unremarkable. IMPRESSION: No acute cardiopulmonar pathology. Dictated by: Kip Albert M.D. on 09/30/2019 at 12:00 Approved by: Kip Albert M.D. on 09/30/2019 at 12:02 Discharge Plan Departure Patient Disposition: Admitted As Inpatient Clinical Impression: Gram-negative bacteremia Discharge Date/Time: 09/30/19 14:45 Admit Date/Time: 09/30/19 14:33 Admit Provider: Eduardo Thornton
--- NOTE | 2019-09-30 15:02 | P.HP_ITS ---
History of Present Illness History of Present Illness Date Patient Seen: 09/30/19 Chief complaint: IV ANTIBIOTICS Narrative: 69-year-old male cigar smoker with hypertension,hyperlipidemia, p soriasis (on methotrexate), paroxysmal afib s/p cardioversion on asa only (after meeting with a it consulting manager), and COPD previously admitted for group a strep bacteremia (2/ otitis externa) who returned to the ED today for positive blood cultures. He was seen two days ago for fever to 103 at home and chills. He was prescribed doxycycline and discharged home after being diagnosed with pneumonia. He endorses a cough but this has not changed significantly over the past two years. His CXR was positive for pneumonia on his first visit to the ER. He denies any chest pain or worsening short of breath (at baseline currently where he can walk to the mailbox 2/2 COPD). He denies any nausea, vomiting, abdominal pain, dysuria, diarrhea. He does note some urinary frequency but has been taking in more water recently. He denies recent travel. He does note a mild headache which is right-sided, nonradiating, and worse when positioning his head to the right when sleeping. This is usually relieved with Tylenol or with the patient describes a tension headache relief medicine. His last methotrexate dose was two days ago. In the ER, the patient was afebrile, and vitals were unremarkable. Repeat CXR read as clear, although there is slight blurring of the R diaphragm but this appears improved from previous film 2 days ago. Labs notable for Plt count of 127, but his Plt count typically runs low. Chemistries also only notable for ALT of 52, only mildly increased from previous lab studies. Procalcitonin is 0.91. Blood cultures from 09/28 are currently growing Klebsiella and E coli. Patient History Medical History Atrial fibrillation (Acute) COPD (chronic obstructive pulmonary disease) (Acute) HLD (hyperlipidemia) (Acute) HTN (hypertension) (Acute) Psoriasis (Acute) Family & Social History Social History: household members friend(s) Prior Living Arrangements House Safety & Behavioral: Feels Safe in Current Yes Environment Been Physically Hurt or No Threatened By a Person Tobacco & Substance use: Tobacco type cigars Smoking Status Current every day smoker alcohol intake current alcohol intake frequency a few times a week Substance Use Type does not use Meds Home Medications and Allergies Home Medications Medication Instructions Recorded Confirmed Type aspirin 81 mg PO DAILY #0 04/10/12 09/30/19 History folic acid 1 mg PO DAILY #0 04/10/12 09/30/19 History Multivitamin Senior 1 tab PO DAILY 06/07/19 09/30/19 History Turmeric Curcumin 1,000 mg PO DAILY 06/07/19 09/30/19 History atorvastatin 10 mg PO DAILY 06/07/19 09/30/19 History carvedilol 6.25 mg PO BID 06/07/19 09/30/19 History diltiazem HCl 120 mg PO DAILY 06/07/19 09/30/19 History ferrous sulfate 65 mg PO Q OTHER DAY 06/07/19 09/30/19 History lisinopril-hydrochlorothiazide 1 tab PO DAILY 06/07/19 09/30/19 History magnesium oxide 400 mg PO DAILY 06/07/19 09/30/19 History methotrexate sodium 25 mg PO QWEEK 06/07/19 09/30/19 History sildenafil [Viagra] 0 mg PO PRN PRN 06/07/19 09/30/19 History albuterol sulfate [ProAir 1 inh INHALATION DIRECTED 09/28/19 09/30/19 History RespiClick] doxycycline hyclate 100 mg PO BID #14 cap 09/28/19 09/30/19 Rx Allergies Allergy/AdvReac Type Severity Reaction Status Date / Time levofloxacin [From LEVAQUIN] Allergy Unknown Verified 09/28/19 15:31 phenazopyridine Allergy Unknown Verified 09/28/19 15:31 Review of Systems Review of Systems Narrative: All other systems reviewed with the patient and are negative unless otherwise stated. Exam Vital Signs (past 8 hours): - 09/30/19 11:30 09/30/19 12:00 09/30/19 12:30 Temperature 98.1 F Pulse Rate 78 74 70 Respiratory Rate 19 16 15 Blood Pressure 156/73 H Blood Pressure [Right Arm] 116/74 113/66 125/76 Pulse Oximetry 95 95 96 09/30/19 13:00 09/30/19 13:42 Temperature Pulse Rate 70 77 Respiratory Rate 16 12 Blood Pressure Blood Pressure [Right Arm] 122/70 142/71 H Pulse Oximetry 96 97 Oxygen Delivery Method Room Air Narrative Exam Narrative: GENERAL APPEARANCE: Well developed, well nourished, in no acute distress. SKIN: Inspection of the skin reveals mild psoriasis in the upper extremities bilaterally, no ulcerations or petechiae. HEENT: The sclerae were anicteric and conjunctivae were pink and moist. Extraocular movements were intact and pupils were equal, round with normal accommodation. External inspection of the ears and nose showed no scars, lesions, or masses. Lips, teeth, and gums showed normal mucosa. The oral mucosa, hard and soft palate, tongue and posterior pharynx were unremarkable. NECK: Supple and symmetric. There was no thyroid enlargement, and no tenderness, or masses were felt. CHEST: Normal AP diameter and normal contour without any kyphoscoliosis. LUNGS: Auscultation of the lungs revealed no wheezes, rhonchi, or rales. CARDIOVASCULAR: There was a regular rate and rhythm without any murmurs, gallops, rubs. Peripheral pulses were 2+ and symmetric. ABDOMEN: Soft and nontender with normal bowel sounds. No ascites was noted. MUSCULOSKELETAL: There was no tenderness or effusions noted. Muscle strength and tone were normal. EXTREMITIES: No cyanosis, clubbing or edema. NEUROLOGIC: Alert and oriented x 3. Normal affect. Gait was normal. Strength is +5/5 in the Upper Extremities and Lower Extremities Bilaterally. Sensation to touch was normal. Negative Brudzinski sign. Objective ECG Impression: Normal sinus rhythm with lateral q waves, no other evidence of active ischemia. Imaging Chest x-ray: My impression: Possible blurring of R diaphragmatic border, could be atelectasis or possible infiltrate in RLL. Radiologist's impression: no acute process Labs Result Diagrams: 09/30/19 11:25 09/30/19 11:25 Labs: Laboratory Results - last 24 hr 09/30/19 09/30/19 09/30/19 11:25 11:25 11:25 WBC 6.4 RBC 4.46 L Hgb 13.4 L Hct 39.4 L MCV 88.3 MCH 30.1 MCHC 34.1 RDW 14.8 Plt Count 127 L Neut % (Auto) 79.9 H Lymph % (Auto) 9.5 L [place] % (Auto) 9.5 Eos % (Auto) 0.8 L Baso % (Auto) 0.3 Neut # (Auto) 5100 Lymph # (Auto) 600 L [place] # (Auto) 600 Eos # (Auto) 100 Baso # (Auto) 0 PT 12.3 INR 1.1 APTT 31 Sodium Potassium Chloride Carbon Dioxide BUN Creatinine Estimated GFR BUN/Creatinine Ratio Glucose Lactate Calcium Total Bilirubin AST ALT Alkaline Phosphatase Total Protein Albumin Globulin Albumin/Globulin Ratio Lipase Procalcitonin 0.91 H 09/30/19 09/30/19 11:25 11:25 WBC RBC Hgb Hct MCV MCH MCHC RDW Plt Count Neut % (Auto) Lymph % (Auto) [place] % (Auto) Eos % (Auto) Baso % (Auto) Neut # (Auto) Lymph # (Auto) [place] # (Auto) Eos # (Auto) Baso # (Auto) PT INR APTT Sodium 137 Potassium 3.5 Chloride 103 Carbon Dioxide 27 BUN 15 Creatinine 0.90 Estimated GFR > 60.0 BUN/Creatinine Ratio 16.7 Glucose 142 H Lactate 1.8 Calcium 8.7 Total Bilirubin 0.5 AST 45 ALT 52 H Alkaline Phosphatase 80 Total Protein 6.8 Albumin 3.7 Globulin 3.1 Albumin/Globulin Ratio 1.2 Lipase 33 Procalcitonin Assessment & Plan Assessment & Plan narrative: 69-year-old male cigar smoker with hypertension,hyperlipidemia, psoriasis (on methotrexate), paroxysmal afib s/p cardioversion on asa only (after meeting with a it consulting manager), and COPD previously admitted for group a strep bacteremia (2/2 otitis externa) who retur [place] to the ED today for positive blood cultures. He seems to be symptomatically improving on doxycycline, but blood cultures have not been finalized as of this time. 1. E. Coli and Klebsiella bacteremia - source possibly secondary to pneumonia based on initial chest imaging however this is not convincing and these bacteria can also be found in the urine. He was febrile to 103 on 09/28, seemingly has improved on doxycycline which likely covers E. Coli and Klebsiella but will await final cultures. - check formal UA and respiratory panel, consider additional imaging if persistent fever. - follow up final sensitivities from 09/28, likely will be able to narrow to oral therapy once finalized. - continue ceftriaxone 2g q 24 hours. - will require 7-14 day course of antibiotics, favor 10 days given methotrexate usage. Repeat cultures are not necessary in gram negative bacteremia. - continue to follow pro-calcitonin. 2. HTN, chronic, active - likely elevated secondary to pain. - continue home diltiazem, lisinopril/HCTZ, coreg 3. history of pafib s/p cardioversion - - continue asa 81 mg daily 4. HLD, chronic, active - continue lipitor 10 mg daily. 5. Psoriasis, chronic, active - - will hold methotrexate currently, he usually takes 25 mg on Friday. - discussed with patient given now 2x bacteremia in the past year that he may consider stopping methotrexate after discussion with rheumatology and dermatology. This medication will be held upon discharge. DVT: Lovenox daily. Code: Full Dispo: Admitted under inpatient status for gram-negative bacteremia given immunocompromised status and possibility of complications.
--- NOTE | 2019-09-30 15:04 | PC.NURSE ---
Admission Pt arrived on stretcher, able to walk to bed in room. C/o CLARK. 02/22. Admit completed. Needs skin check.
[2019-09-30] MEDS: ACETAMINOPHEN 325 MG TABLET 650 MG PO (16:01)
[2019-09-30 19:20] LABS: Adenovirus Not Detected (Not Detect); Bordetella pertussis Not Detected (Not Detect); Chlamydophila pneumoniae Not Detected (Not Detect); Coronavirus 229E Not Detected (Not Detect); Coronavirus HKU1 Not Detected (Not Detect); Coronavirus NL 63 Not Detected (Not Detect); Coronavirus OC43 Not Detected (Not Detect); Human Metapneumovirus Not Detected (Not Detect); Human Rhinovirus/Enterovirus Not Detected (Not Detect); Influenza A Not Detected (Not Detect); Influenza B Not Detected (Not Detect); Mycoplasma pneumoniae Not Detected (Not Detect); Parainfluenza Virus 1 Not Detected (Not Detect); Parainfluenza Virus 2 Not Detected (Not Detect); Parainfluenza Virus 3 Not Detected (Not Detect); Parainfluenza Virus 4 Not Detected (Not Detect); Respiratory Syncytial Virus Not Detected (Not Detect)
[2019-09-30 19:45] LABS: Bacteria Urine None Seen
[2019-09-30 19:47] LABS: Appearance Urine UA CLEAR; Bilirubin Urine UA NEGATIVE (NEGATIVE); Color Urine UA YELLOW; Glucose Urine UA NEGATIVE (Negative); Ketones Urine UA NEGATIVE (NEGATIVE); Leukocyte Esterase Urine UA NEGATIVE (NEGATIVE); Nitrite Urine UA NEGATIVE (Negative); Occult Blood Urine UA TRACE-INTACT (Negative); Protein Urine UA NEGATIVE (Negative); Specific Gravity Urine UA 1.015 (1.000-1.035); Urobilinogen Urine UA 0.2 E.U./dL (0.2); pH Urine UA 5.5 (4.5-8.0)
[2019-09-30 19:57] LABS: Culture Indicated Urine Cult Not Indicated; RBC Urine 1-5/HPF (0-5/HPF); Squamous Epithelial Cell Urine 0-1 /HPF (0-5/HPF); WBC Urine 0-1/HPF (0-5/HPF)
[2019-09-30] MEDS: carvediloL 6.25 MG TABLET PO (20:13)
[2019-10-01] VITALS (12 sets, daily range): BP systolic 127–141; BP diastolic 73–79; PULSE 68–86; RESP 14–22; TEMP 36.2–38.2; O2SAT 93–97
--- NOTE | 2019-10-01 00:21 | PC.NURSE ---
Addendum entered by Rebecca Santamaria R.N. 10/01/19 06:02: Temp on recheck earlier was still 100.2 but this morning down to 99.1. Denies any pain. Addendum entered by Rebecca Santamaria R.N. 10/01/19 00:29: Correction: psoriasis only on right knee and left forearm. Temp 100.2 so medicated with Tylenol. Original Note: Patient is alert and oriented. Breath sounds diminished but CTA with sat of 96%; using home CPAP. States he feels head congestion and has occasional, minimally productive cough. HRR; telemetry reading at 2107 was SR w/PAC's. Denies nausea. BT present and abdomen is soft. Denies dysuria, frequency or urgency. Able to move self in bed and discussed calling for assistance to get out of bed for safety; verbalizes understanding. Psoriasis noted on bilateral LE and left UE. Denies pain. Fall risk score is moderate and bed alarm is activated. Significant other, Ene, rooming in.
[2019-10-01] MEDS: ACETAMINOPHEN 325 MG TABLET 650 MG PO ×2 (00:28→20:24)
[2019-10-01 05:29] LABS: Add Manual Diff / Slide Review NO; Basophils Absolute Auto 0 /uL (0-100); Basophils Percent Auto 0.6 % (0-2); Eosinophils Absolute Auto 0 /uL (0-450); Eosinophils Percent Auto 0.9 % (2-4); Hematocrit 36.2 % (41-53); Hemoglobin 12.2 g/dL (13.5-17.5); Lymphocytes Absolute Auto 1200 /uL (1100-4500); Lymphocytes Percent Auto 22.3 % (25-40); Mean Corpuscular HGB Conc 33.6 % (30-36); Mean Corpuscular Hemoglobin 29.6 PG (26-34); Mean Corpuscular Volume 88.3 fL (80-100); Monocytes Absolute Auto 700 /uL (0-900); Monocytes Percent Auto 12.5 % (3-14); Neutrophils Absolute Auto 3400 /uL (1500-7000); Neutrophils Percent Auto 63.7 % (50-75); Platelet Count 128 X10^3/uL (150-400); Red Cell Distribution Width 14.1 % (11.6-14.8); White Blood Cell Count 5.4 X10^3/uL (4.5-11.0)
[2019-10-01 06:11] LABS: Alanine Aminotransferase 48 IU/L (<50); Albumin 3.2 g/dL (3.5-5.0); Albumin Globulin Ratio 1.1 (1.0-2.8); Alkaline Phosphatase 67 U/L (38-126); Aspartate Aminotransferase 37 IU/L (17-59); BUN Creatinine Ratio 11.3 (6-22); Bilirubin Total 0.4 mg/dL (0.2-1.3); Bilirubin Unconjugated 0.3 mg/dL (0.0-1.1); Blood Urea Nitrogen 9 mg/dL (9-20); Calcium 8.1 mg/dL (8.4-10.2); Carbon Dioxide 27 mmol/L (22-32); Chloride 104 mmol/L (98-107); Estimated Glomerular Filt Rate > 60.0 mL/min (>60); Globulin 2.8 g/dL (1.7-4.1); Glucose 106 mg/dL (80-110); HEMOLYSIS < 15 (0-50); Potassium 3.5 mmol/L (3.4-5.1); Sodium 137 mmol/L (137-145)
[2019-10-01 06:38] LABS: Procalcitonin 0.59 ng/mL (<0.5)
[2019-10-01] MEDS: ATORVASTATIN 10 MG TABLET PO (11:48)
[2019-10-01] MEDS: MULTIVITAMIN 1 TABLET 1 TAB PO (11:48)
[2019-10-01] MEDS: carvediloL 6.25 MG TABLET PO ×2 (11:48→20:23)
[2019-10-01] MEDS: LISINOPRIL 20 MG TABLET PO (11:48)
[2019-10-01] MEDS: FOLIC ACID 1 MG TABLET PO (11:49)
[2019-10-01] MEDS: hydroCHLOROthiazide 12.5 MG CAPSULE PO (11:49)
[2019-10-01] MEDS: dilTIAZem CD 120 MG CAP PO (11:49)
[2019-10-01] MEDS: ENOXAPARIN 40 MG/0.4 ML SYRINGE SUBCUT ×2 (11:49→20:23)
[2019-10-01] MEDS: ASPIRIN EC 81 MG TABLET PO (11:49)
[2019-10-01] MEDS: MAGNESIUM OXIDE 400 MG TABLET PO (11:49)
--- NOTE | 2019-10-01 13:14 | P.PN_ITS ---
Subjective Subjective Date Patient Seen: 10/01/19 Time Patient Seen: 13:15 Interval history: 69-year-old male cigar smoker with hypertension,hyperlipidemia, psoriasis (on methotrexate), paroxysmal afib s/p cardioversion on asa only (after meeting with a wrecker operator), and COPD previously admitted for group a strep bacteremia (2/2 otitis externa) was seen today for follow-up of Klebsiella and E coli bacteremia. The patient has remained afebrile and is currently doing well. We are still awaiting results of sensitivities for the E coli in his blood, and I called the lab and they a should be finalized tomorrow. He remains on ceftriaxone. He denies complaints today. Exam Vital Signs (past 8 hours): - 10/01/19 05:58 10/01/19 08:00 10/01/19 11:53 Temperature 99.1 F 98.1 F 97.2 F L Pulse Rate 86 71 Respiratory Rate 22 18 Blood Pressure 135/73 130/78 Pulse Oximetry 96 95 Oxygen Delivery Method Room Air Oxygen Flow Rate 0 Narrative Exam Narrative: GENERAL APPEARANCE: Well developed, well nourished, in no acute distress. SKIN: Inspection of the skin reveals mild psoriasis in the upper extremities bilaterally, no ulcerations or petechiae. HEENT: The sclerae were anicteric and conjunctivae were pink and moist. Extraocular movements were intact and pupils were equal, round with normal accommodation. External inspection of the ears and nose showed no scars, l esions, or masses. Lips, teeth, and gums showed normal mucosa. The oral mucosa, hard and soft palate, tongue and posterior pharynx were unremarkable. NECK: Supple and symmetric. There was no thyroid enlargement, and no tenderness, or masses were felt. CHEST: Normal AP diameter and normal contour without any kyphoscoliosis. LUNGS: Auscultation of the lungs revealed no wheezes, rhonchi, or rales. CARDIOVASCULAR: There was a regular rate and rhythm without any murmurs, gallops, rubs. Peripheral pulses were 2+ and symmetric. ABDOMEN: Soft and nontender with normal bowel sounds. No ascites was noted. MUSCULOSKELETAL: There was no tenderness or effusions noted. Muscle strength and tone were normal. EXTREMITIES: No cyanosis, clubbing or edema. NEUROLOGIC: Alert and oriented x 3. Normal affect. Gait was normal. Strength is +5/5 in the Upper Extremities and Lower Extremities Bilaterally. Sensation to touch was normal. Objective Labs Result Diagrams: 10/01/19 05:13 10/01/19 05:13 Labs: Laboratory Results - last 24 hr 09/30/19 09/30/19 10/01/19 16:30 19:05 05:13 WBC 5.4 RBC 4.10 L Hgb 12.2 L Hct 36.2 L MCV 88.3 MCH 29.6 MCHC 33.6 RDW 14.1 Plt Count 128 L Neut % (Auto) 63.7 Lymph % (Auto) 22.3 L [place] % (Auto) 12.5 Eos % (Auto) 0.9 L Baso % (Auto) 0.6 Neut # (Auto) 3400 Lymph # (Auto) 1200 [place] # (Auto) 700 Eos # (Auto) 0 Baso # (Auto) 0 Sodium Potassium Chloride Carbon Dioxide BUN Creatinine Estimated GFR BUN/Creatinine Ratio Glucose Calcium Total Bilirubin Conjugated Bilirubin Unconjugated Bilirubin AST ALT Alkaline Phosphatase Total Protein Albumin Globulin Albumin/Globulin Ratio Procalcitonin Urine Color Yellow Urine Appearance Clear Urine pH 5.5 Ur Specific Linch 1.015 Urine Protein Negative Urine Glucose (UA) Negative Urine Ketones Negative Urine Occult Blood Trace-intact Urine Nitrate Negative Urine Bilirubin Negative Urine Urobilinogen 0.2 Ur Leukocyte Esterase Negative Urine RBC 1-5/hpf Urine WBC 0-1/hpf Ur Squamous Epith Cells 0-1 /hpf Urine Bacteria None seen Ur Culture Indicated? Cult not indicated Chlamy pneumoniae PCR Not detected Adenovirus (PCR) Not detected B.parapertussis DNA PCR Not detected Coronavirus OC43 (PCR) Not detected Coronavirus HKU1 (PCR) Not detected Coronavirus 229E (PCR) Not detected Coronavirus NL63 (PCR) Not detected Human Metapneumovir PCR Not detected Influenza Type A (PCR) Not detected Influenza Type B (PCR) Not detected M. pneumoniae (PCR) Not detected Parainfluenza 1 (PCR) Not detected Parainfluenza 2 (PCR) Not detected Parainfluenza 3 (PCR) Not detected Parainfluenza 4 (PCR) Not detected RSV (PCR) Not detected Entero/Rhino (PCR) Not detected 10/01/19 10/01/19 05:13 05:13 WBC RBC Hgb Hct MCV MCH MCHC RDW Plt Count Neut % (Auto) Lymph % (Auto) [place] % (Auto) Eos % (Auto) Baso % (Auto) Neut # (Auto) Lymph # (Auto) [place] # (Auto) Eos # (Auto) Baso # (Auto) Sodium 137 Potassium 3.5 Chloride 104 Carbon Dioxide 27 BUN 9 Creatinine 0.80 Estimated GFR > 60.0 BUN/Creatinine Ratio 11.3 Glucose 106 Calcium 8.1 L Total Bilirubin 0.4 Conjugated Bilirubin 0.0 Unconjugated Bilirubin 0.3 AST 37 ALT 48 Alkaline Phosphatase 67 Total Protein 6.0 L Albumin 3.2 L Globulin 2.8 Albumin/Globulin Ratio 1.1 Procalcitonin 0.59 H Urine Color Urine Appearance Urine pH Ur Specific Linch Urine Protein Urine Glucose (UA) Urine Ketones Urine Occult Blood Urine Nitrate Urine Bilirubin Urine Urobilinogen Ur Leukocyte Esterase Urine RBC Urine WBC Ur Squamous Epith Cells Urine Bacteria Ur Culture Indicated? Chlamy pneumoniae PCR Adenovirus (PCR) B.parapertussis DNA PCR Coronavirus OC43 (PCR) Coronavirus HKU1 (PCR) Coronavirus 229E (PCR) Coronavirus NL63 (PCR) Human Metapneumovir PCR Influenza Type A (PCR) Influenza Type B (PCR) M. pneumoniae (PCR) Parainfluenza 1 (PCR) Parainfluenza 2 (PCR) Parainfluenza 3 (PCR) Parainfluenza 4 (PCR) RSV (PCR) Entero/Rhino (PCR) Assessment & Plan Assessment & Plan narrative: 69-year-old male cigar smoker with hypertension,hyperlipidemia, psoriasis (on methotrexate), paroxysmal afib s/p cardioversion on asa only (after meeting with a wrecker operator), and COPD previously admitted for group a strep bacteremia (2/2 otitis externa) who returned to the ED for positive blood cultures. His blood cultures are currently growing E coli and Klebsiella, and today we are awaiting final sensitivities for the E coli. I discussed with the lab and the should be completed tomorrow. 1. E. Coli and Klebsiella bacteremia - source possibly secondary to pneumonia based on initial chest imaging however this is not convincing and these bacteria can also be found in the urine. He was febrile to 103 on 09/28, seemingly has improved on doxycycline which likely covers E. Coli and Klebsiella but will await final cultures. - UA negative as well as respiratory panel, however patient was on antibiotics prior to this being tested. - follow up final sensitivities from 09/28, likely will be able to narrow to oral therapy once finalized, and patient will likely be able to discharge home as long as he remains afebrile at that time. - continue ceftriaxone 2g q 24 hours. - will require 7-14 day course of antibiotics, favor 10 days given methotrexate usage. Repeat cultures are not necessary in gram negative bacteremia. -procalcitonin is down trending today 2. HTN, chronic, active - likely elevated secondary to pain. - continue home diltiazem, lisinopril/HCTZ, coreg 3. history of pafib s/p cardioversion - - continue asa 81 mg daily 4. HLD, chronic, active - continue lipitor 10 mg daily. 5. Psoriasis, chronic, active - - will hold methotrexate currently, he usually takes 25 mg on Friday. - discussed with patient given now 2x bacteremia in the past year that he may consider stopping methotrexate after discussion with rheumatology and derma tolhannahy. This medication will be held upon discharge. DVT: Lovenox daily. Code: Full Dispo: Admitted under inpatient status for gram-negative bacteremia given immunocompromised status and possibility of complications. Anticipate discharge tomorrow if the patient remains afebrile and sensitivities from the E coli have returned.
[2019-10-01] MEDS: CEFTRIAXONE 2 GM/50 ML FROZ.PIGGY IV (14:32)
[2019-10-01] MEDS: SODIUM CHLORIDE 0.9% FLUSH 10 ML IV ×2 (14:32→20:28)
[2019-10-01] MEDS: SODIUM CHLORIDE 0.9% 250 ML 21 ML IV (14:36)
--- NOTE | 2019-10-01 15:46 | CM.DANOTE ---
Discharge Planning/Care Management DCP: assessment: case received, EMR reviewed. Discussed in Team Rounds. Pt is a 69 year old male who admitted yesterday afternoon to care of hospitalist team. PCP: KULWANT Rodriguez Payer: Medicare and CAD Best. Admission status: INPT: confirmed by [facility] RN Bettina. Last admission to acute care setting noted: pt was here for infection in ears [facility] - 06/09/19. Pt was also seen at ER a couple days ago with a d/c to home setting. Pt is now admitted for gram-negative bacteremia in setting of methatrexate treatment for psoriosis and Dr. Thornton notes his immunocompromised status. Dr. Thornton stated pt will likely be able to d/c to home setting for about 2 weeks of oral antibiotics but culture/sensitivities are still pending. P: pt will benefit from a check in with DCP team to discuss d/c issues and options. Lateness of hour dictates need to pass this to the DCP team on for tomorrow. CM Discharge Assessment Start: 10/01/19 15:43 Freq: Status: Active Protocol: Document 10/01/19 15:44 ITV (Rec: 10/01/19 15:46 ITV [id number]) Discharge Planning Assessment Advance Directives? No History Provided By Medical Record Prior Living Arrangements House Household Members friend(s) Comment Ene Lazaro Is patient alert and oriented? Yes Whiteboard Updated in Patient Room with Yes name and ext. # of Billing Control Clerk Review Status In Process
--- NOTE | 2019-10-01 16:43 | PC.NURSE ---
Assumed care of pt at 1500. Pt resting in bed during bedside hand-off. Temp retaken with oral temp 99.7F. Pt denies chills or other symptoms. Provider notified. Pt states he has been voiding in bathroom and not notifying staff. He states he voided 4x today. Advised pt to notify staff of all output. Undocumented day shift voids entered in chart. Pt verbalized he will call for needs. at bedside.
[2019-10-02] MEDS: ACETAMINOPHEN 325 MG TABLET 650 MG PO ×2 (03:10→09:00)
[2019-10-02 04:30] VITALS: BP 138/78; PULSE 72; RESP 14; TEMP 36.7; O2SAT 96
[2019-10-02 06:02] LABS: Add Manual Diff / Slide Review NO; Basophils Absolute Auto 0 /uL (0-100); Basophils Percent Auto 0.6 % (0-2); Eosinophils Absolute Auto 100 /uL (0-450); Eosinophils Percent Auto 1.4 % (2-4); Hematocrit 36.1 % (41-53); Hemoglobin 12.1 g/dL (13.5-17.5); Lymphocytes Absolute Auto 1100 /uL (1100-4500); Lymphocytes Percent Auto 23.2 % (25-40); Mean Corpuscular HGB Conc 33.6 % (30-36); Mean Corpuscular Hemoglobin 29.8 PG (26-34); Mean Corpuscular Volume 88.9 fL (80-100); Monocytes Absolute Auto 500 /uL (0-900); Monocytes Percent Auto 9.8 % (3-14); Neutrophils Absolute Auto 3200 /uL (1500-7000); Platelet Count 133 X10^3/uL (150-400); Red Blood Cell Count 4.07 X10^6/uL (4.5-5.9); Red Cell Distribution Width 14.1 % (11.6-14.8); White Blood Cell Count 4.9 X10^3/uL (4.5-11.0)
[2019-10-02 06:23] LABS: Alanine Aminotransferase 53 IU/L (<50); Albumin 3.3 g/dL (3.5-5.0); Albumin Globulin Ratio 1.2 (1.0-2.8); Alkaline Phosphatase 71 U/L (38-126); Aspartate Aminotransferase 42 IU/L (17-59); BUN Creatinine Ratio 11.3 (6-22); Bilirubin Total 0.3 mg/dL (0.2-1.3); Bilirubin Unconjugated 0.2 mg/dL (0.0-1.1); Blood Urea Nitrogen 9 mg/dL (9-20); Calcium 8.3 mg/dL (8.4-10.2); Carbon Dioxide 30 mmol/L (22-32); Chloride 102 mmol/L (98-107); Estimated Glomerular Filt Rate > 60.0 mL/min (>60); Globulin 2.8 g/dL (1.7-4.1); Glucose 174 mg/dL (80-110); HEMOLYSIS < 15 (0-50); Potassium 3.3 mmol/L (3.4-5.1); Sodium 138 mmol/L (137-145); Total Protein 6.1 g/dL (6.3-8.2)
[2019-10-02 06:38] LABS: Procalcitonin 0.29 ng/mL (<0.5)
[2019-10-02] MEDS: POTASSIUM CHLORIDE 20 MEQ TAB PO (07:07)
[2019-10-02 07:30] VITALS: BP 135/73; PULSE 73; RESP 18; TEMP 36.6; O2SAT 96
[2019-10-02] MEDS: ENOXAPARIN 40 MG/0.4 ML SYRINGE SUBCUT (08:59)
[2019-10-02] MEDS: FOLIC ACID 1 MG TABLET PO (09:00)
[2019-10-02] MEDS: MAGNESIUM OXIDE 400 MG TABLET PO (09:00)
[2019-10-02] MEDS: MULTIVITAMIN 1 TABLET 1 TAB PO (09:00)
[2019-10-02] MEDS: ATORVASTATIN 10 MG TABLET PO (09:00)
[2019-10-02] MEDS: carvediloL 6.25 MG TABLET PO (09:00)
[2019-10-02] MEDS: SODIUM CHLORIDE 0.9% FLUSH 10 ML IV (09:00)
[2019-10-02] MEDS: dilTIAZem CD 120 MG CAP PO (09:00)
[2019-10-02] MEDS: LISINOPRIL 20 MG TABLET PO (09:00)
[2019-10-02] MEDS: hydroCHLOROthiazide 12.5 MG CAPSULE PO (09:00)
[2019-10-02] MEDS: ASPIRIN EC 81 MG TABLET PO (09:00)
--- NOTE | 2019-10-02 10:16 | PM.DS.1 ---
History of Present Illness History of Present Illness Chief complaint: IV ANTIBIOTICS Narrative: 69-year-old male cigar smoker with hypertension,hyperlipidemia, psoriasis (on methotrexate), paroxysmal afib s/p cardioversion on asa only (after meeting with a car rental service attendant), and COPD previously admitted for group a strep bacteremia (2/2 otitis externa) who returned to the ED today for positive blood cultures. He was seen two days ago for fever to 103 at home and chills. He was prescribed doxycycline and discharged home after being diagnosed with pneumonia. He endorses a cough but this has not changed significantly over the past two years. His CXR was positive for pneumonia on his first visit to the ER. He denies any chest pain or worsening short of breath (at baseline currently where he can walk to the mailbox 2/2 COPD). He denies any nausea, vomiting, abdominal pain, dysuria, diarrhea. He does note some urinary frequency but has been taking in more water recently. He denies recent travel. He does note a mild headache which is right-sided, nonradiating, and worse when positioning his head to the right when sleeping. This is usually relieved with Tylenol or with the patient describes a tension headache relief medicine. His last methotrexate dose was two days ago. In the ER, the patient was afebrile, and vitals were unremarkable. Repeat CXR read as clear, although there is slight blurring of the R diaphragm but this appears improved from previous film 2 days ago. Labs notable for Plt count of 127, but his Plt count typically runs low. Chemistries also only notable for ALT of 52, only mildly increased from previous lab studies. Procalcitonin is 0.91. Blood cultures from 09/28 are currently growing Klebsiella and E coli. Discharge Providers Provider Date of admission: 09/30/19 14:33 Discharge Date: 10/02/19 Primary care physician: Laura Brantley DO Discharge provider: Eduardo Thornton DO Summary Hospital Course Discharge Diagnosis: 1. E. Coli and Klebsiella bacteremia 2. HTN, chronic, active 3. history of pafib s/p cardioversion - 4. HLD, chronic, active 5. Psoriasis, chronic, active - Hospital Course: 69-year-old male cigar smoker with hypertension,hyperlipidemia, psoriasis (on methotrexate), paroxysmal afib s/p cardioversion on asa only (after meeting with a car rental service attendant), and COPD previously admitted for group a strep bacteremia (2/2 otitis externa) who returned to the ED for positive blood cultures. His blood cultures are currently growing E coli and Klebsiella, which were mancia-sensitive. He was discharged on oral cefdinir to complete 14 day total course. 1. E. Coli and Klebsiella bacteremia - source possibly secondary to pneumonia based on initial chest imaging however this is not convincing and these bacteria can also be found in the urine. He was febrile to 103 on 09/28, seemingly has improved on doxycycline which likely covers E. Coli and Klebsiella. Final cultures grew mancia-sensitive E. Coli and Klebsiella. He was discharged home to complete 14 day total course. He received ceftriaxone inpatient and was discharged on cefdinir. - UA negative as well as respiratory panel, however patient was on antibiotics prior to this being tested. Official source of bacteremia was not found, however suspect pneumonia. Other etiologies include urine or intra-abdominal howeever patient had no symptoms of these sources. - will require 7-14 day course of antibiotics, favor 14 days given methotrexate usage. Repeat cultures are not necessary in gram negative bacteremia. -procalcitonin trended down. 2. HTN, chronic, active - likely elevated secondary to pain. - continue home diltiazem, lisinopril/HCTZ, coreg 3. history of pafib s/p cardioversion - - continue asa 81 mg daily 4. HLD, chronic, active - continue lipitor 10 mg daily. 5. Psoriasis, chronic, active - - will hold methotrexate, he usually takes 25 mg on Friday. - discussed with patient given now 2x bacteremia in the past year that he should consider stopping methotrexate after discussion with rheumatology and dermatology. This medication was held upon discharge. Status at Discharge Cognitive/behavioral status at discharge: oriented Functional status at discharge: independent ambulation Overall status at discharge: patient is back to baseline Time Spent with Patient Time spent: Greater than 30 minutes Exam Vital Signs (past 8 hours): - 10/02/19 04:30 10/02/19 07:30 Temperature 98.0 F 97.8 F Pulse Rate 72 73 Respiratory Rate 14 18 Blood Pressure 138/78 135/73 Pulse Oximetry 96 96 Oxygen Delivery Method Room Air Oxygen Flow Rate 0 Narrative Exam Narrative: GENERAL APPEARANCE: Well developed, well nourished, in no acute distress. SKIN: Inspection of the skin reveals mild psoriasis in the upper extremities bilaterally, no ulcerations or petechiae. HEENT: The sclerae were anicteric and conjunctivae were pink and moist. Extraocular movements were intact and pupils were equal, round with normal accommodation. External inspection of the ears and nose showed no scars, lesions, or masses. Lips, teeth, and gums showed normal mucosa. The oral mucosa, hard and soft palate, tongue and posterior pharynx were unremarkable. NECK: Supple and symmetric. There was no thyroid enlargement, and no tenderness, or masses were felt. CHEST: Normal AP diameter and normal contour without any kyphoscoliosis. LUNGS: Auscultation of the lungs revealed no wheezes, rhonchi, or rales. CARDIOVASCULAR: There was a regular rate and rhythm without any murmurs, gallops, rubs. Peripheral pulses were 2+ and symmetric. ABDOMEN: Soft and nontender with normal bowel sounds. No ascites was noted. MUSCULOSKELETAL: There was no tenderness or effusions noted. Muscle strength and tone were normal. EXTREMITIES: No cyanosis, clubbing or edema. NEUROLOGIC: Alert and oriented x 3. Normal affect. Gait was normal. Strength is +5/5 in the Upper Extremities and Lower Extremities Bilaterally. Sensation to touch was normal. Objective Labs Result Diagrams: 10/02/19 05:15 10/02/19 05:15 Labs: Laboratory Results - last 24 hr 10/02/19 10/02/19 10/02/19 05:15 05:15 05:15 WBC 4.9 RBC 4.07 L Hgb 12.1 L Hct 36.1 L MCV 88.9 MCH 29.8 MCHC 33.6 RDW 14.1 Plt Count 133 L Neut % (Auto) 65.0 Lymph % (Auto) 23.2 L [place] % (Auto) 9.8 Eos % (Auto) 1.4 L Baso % (Auto) 0.6 Neut # (Auto) 3200 Lymph # (Auto) 1100 [place] # (Auto) 500 Eos # (Auto) 100 Baso # (Auto) 0 Sodium 138 Potassium 3.3 L Chloride 102 Carbon Dioxide 30 BUN 9 Creatinine 0.80 Estimated GFR > 60.0 BUN/Creatinine Ratio 11.3 Glucose 174 H Calcium 8.3 L Total Bilirubin 0.3 Conjugated Bilirubin 0.0 Unconjugated Bilirubin 0.2 AST 42 ALT 53 H Alkaline Phosphatase 71 Total Protein 6.1 L Albumin 3.3 L Globulin 2.8 Albumin/Globulin Ratio 1.2 Procalcitonin 0.29 Discharge Plan Discharge Plan Patient Disposition: Home Discharge comment: You were admitted to the hospital with bacteria in your blood. The specific bacteria that grew were E. coli and Klebsiella. It is thought this bacteria came from pneumonia, but these could also be from your urine or possibly other sources as well. You are being discharged to complete two weeks total of antibiotics at home. Please take the full course of antibiotics even if you're feeling better. Please discuss with your scrap burner and car salesperson continuing your methotrexate. You should not take this medication while taking antibiotics. Discharge orders & Medications Prescriptions: New cefdinir 300 mg capsule 300 mg PO BID 12 Days Qty: 24 RF: 0 Continued aspirin 81 mg Tablet,Chewable 81 mg PO DAILY Qty: 0 RF: 0 folic acid 1 MG tablet 1 mg PO DAILY Qty: 0 RF: 0 carvedilol 6.25 mg tablet 6.25 mg PO BID RF: 0 atorvastatin 10 mg tablet 10 mg PO DAILY RF: 0 lisinopril-hydrochlorothiazide 20-12.5 mg tablet 1 tab PO DAILY RF: 0 sildenafil [Viagra] 100 mg tablet 0 mg PO PRN PRN (Reason: Erectile Dysfunction) RF: 0 diltiazem HCl 120 mg capsule,extended release 24 hr 120 mg PO DAILY RF: 0 ferrous sulfate 324 mg (65 mg iron) Tablet,Delayed Release (Dr/Ec) 65 mg PO Q OTHER DAY RF: 0 magnesium oxide 400 mg magnesium Tablet 400 mg PO DAILY RF: 0 Multivitamin Senior 1 tab PO DAILY RF: 0 Turmeric Curcumin 1,000 mg 1,000 mg PO DAILY RF: 0 ProAir RespiClick 90 mcg/actuation aerosol powdr breath activated 1 inh INHALATION DIRECTED RF: 0 doxycycline hyclate 100 mg capsule 100 mg PO BID Qty: 14 RF: 0 Discontinued methotrexate sodium 2.5 mg tablet 25 mg PO QWEEK RF: 0 Follow up/Referrals: Laura Brantley DO [Primary Care Provider] - Discharge Health Status Health Concerns: Klebsiella and E. Coli bacteremia. Multidrug resistant organism: No MDRO Diet/Activity/Treatments Diet: Diet as Tolerated Activity: As tolerated Discharge Data Primary Care Provider: Laura Brantley
--- NOTE | 2019-10-02 11:01 | PC.NURSE ---
Discharge pt states he is taking all belongings with him. d/c instructions provided to pt and SO. Aware of f/u with MD and to contact them with any additional questions or concerns. PIV and tele removed prior to d/c. left in w/c with RN escort.
== END 2019-10-02 11:00 | disposition home or self-care (01) | DRG 194 ==
LOC: ED 14:22 → AC 14:33
PROVIDERS: Admitting Provider Internal Medicine; Emergency Provider Emergency Medicine; PCP Family Medicine; Visit Provider Internal Medicine
DX: J18.9 Pneumonia, unspecified organism (principal); R78.81 Bacteremia; Z16.11 Resistance to penicillins; I48.0 Paroxysmal atrial fibrillation; F17.290 Nicotine dependence, other tobacco product, uncomplicated; I10 Essential (primary) hypertension; E78.5 Hyperlipidemia, unspecified; L40.9 Psoriasis, unspecified; B96.1 Klebsiella pneumoniae [K. pneumoniae] as the cause of diseases classified elsewhere; B96.20 Unspecified Escherichia coli [E. coli] as the cause of diseases classified elsewhere
CPT/HCPCS: 36415; 71045; 80048; 80053; 80076; 81001; 83605; 83690; 84145; 85025; 85610; 85730; 87040; 87150; 87186; 87205; 87502; 87633; 93005; 96360; 96361; 96365; 99284; 99285; J0696; J1650

== ENCOUNTER → 2021-08-30 09:41 | Outpatient (CLI) | payer MEDICARE, OTHER, SELFPAY ==
[2019-09-30 11:21] VITALS: BMI 40.6
== END ==
PROVIDERS: PCP Family Medicine; Visit Provider Physician Assistant
DX: R30.0 Dysuria (principal)
CPT/HCPCS: 87077; 87086; 87186

== ENCOUNTER → 2021-09-21 11:00 | Outpatient (CLI) | payer MEDICARE, OTHER, SELFPAY ==
[2019-09-30 11:21] VITALS: BMI 40.6
[2021-09-21 13:43] LABS: Urine N gonorrhoeae NOT DETECTED
[2021-09-21 13:54] LABS: Urine Chlamydia NOT DETECTED
== END ==
PROVIDERS: PCP Family Medicine; Visit Provider Nurse Practitioner Critical Care Medicine
DX: Z13.9 Encounter for screening, unspecified (principal); N34.3 Urethral syndrome, unspecified
CPT/HCPCS: 87077; 87086; 87186; 87491; 87591

== ENCOUNTER → 2021-10-04 14:41 | Outpatient (CLI) | payer MEDICARE, OTHER, SELFPAY ==
[2019-09-30 11:21] VITALS: BMI 40.6
--- NOTE | 2021-10-04 | DI.US.S_ITS ---
PROCEDURE: US RENAL COMPLETE INDICATIONS: ACUTE FLANK PAIN TECHNIQUE: Real-time scanning was performed of the kidneys and bladder, with image documentation. COMPARISON: None. FINDINGS: Kidneys: Kidneys are normal in size. Right kidney measures 11.7 cm long; left kidney measures 12.5 cm long. Right renal cortical thickness is 2.2 cm; left renal cortical thickness is 1.5 cm. Renal cortical echotexture is normal. No hydronephrosis or nephrolithiasis. No suspicious solid mass lesions. There is a 8 mm stone in the inferior pole of the left kidney. A couple of small left renal cortical cysts are seen measuring 1.5 cm and 1.3 cm. Bladder: Pre-void bladder volume is empty. Miscellaneous: No free pelvic fluid. IMPRESSION: 1. There is a 0.8 cm stone in the inferior pole of the left kidney. No hydronephrosis. 2. A couple of small cortical cysts in left kidney. 3. Contracted urinary bladder. Dictated by: Allie Pelaez M.D. on 10/04/2021 at 16:42 Approved by: Allie Pelaez M.D. on 10/04/2021 at 16:45
== END ==
PROVIDERS: PCP Physician Assistant Medical; Referring Provider Urology; Visit Provider Urology
DX: N20.0 Calculus of kidney (principal); N28.1 Cyst of kidney, acquired; N32.89 Other specified disorders of bladder; R10.9 Unspecified abdominal pain
CPT/HCPCS: 76770

== ENCOUNTER → 2022-03-28 10:05 | Outpatient (CLI) | payer MEDICARE, OTHER, SELFPAY ==
[2019-09-30 11:21] VITALS: BMI 40.6
== END ==
PROVIDERS: PCP Physician Assistant Medical; Visit Provider Physician Assistant
DX: L02.91 Cutaneous abscess, unspecified (principal)
CPT/HCPCS: 87070; 87205

== ENCOUNTER → 2022-08-10 16:49 | Outpatient (CLI) | payer MEDICARE, OTHER, SELFPAY ==
[2019-09-30 11:21] VITALS: BMI 40.6
== END ==
PROVIDERS: PCP Physician Assistant Medical; Visit Provider Physician Assistant
DX: L02.91 Cutaneous abscess, unspecified (principal)
CPT/HCPCS: 87070; 87075; 87205

== ENCOUNTER → 2023-03-20 08:38 | Outpatient (CLI) | payer MEDICARE, OTHER, SELFPAY ==
[2019-09-30 11:21] VITALS: BMI 40.6
--- NOTE | 2023-03-20 08:40 | DI.RAD.S_ITS ---
PROCEDURE: XR CHEST 2V INDICATIONS: Cough TECHNIQUE: 2 views of the chest were acquired. COMPARISON: [facility], CR, XR CHEST 1V, 09/30/2019, 11:24. FINDINGS: Surgical changes and devices: None. Lungs and pleura: Lungs are clear. No pleural effusions or pneumothorax. Mediastinum: Mediastinal contours are normal. Heart size is mildly prominent. Bones and chest wall: No suspicious bony abnormalities. Soft tissues appear unremarkable. IMPRESSION: No acute pulmonary process. Dictated by: Kiesha Stewart M.D. on 03/20/2023 at 14:00 Approved by: Kiesha Stewart M.D. on 03/20/2023 at 14:00
== END ==
PROVIDERS: PCP Physician Assistant Medical; Referring Provider Nurse Practitioner Family; Visit Provider Nurse Practitioner Family
DX: R05.9 Cough, unspecified (principal)
CPT/HCPCS: 71046

== ENCOUNTER 2023-04-15 23:55 | Emergency (ER) | payer MEDICARE, OTHER, SELFPAY ==
[2019-09-30 11:21] VITALS: BMI 40.6
[2023-04-16] VITALS (17 sets, daily range): BP systolic 105–129; BP diastolic 59–82; PULSE 78–163; RESP 12–36; TEMP 36.8; O2SAT 92–96; BMI 36.9
--- NOTE | 2023-04-16 00:11 | DI.RAD.S_ITS ---
PROCEDURE: XR CHEST 1V INDICATIONS: chest pain TECHNIQUE: One view of the chest was acquired. COMPARISON: [facility], CR, XR CHEST 2V, 03/20/2023, 8:37. FINDINGS: Surgical changes and devices: None. Lungs and pleura: Lungs are clear. No pleural effusions or pneumothorax. Mediastinum: Mediastinal contours appear normal. Heart size is normal. Bones and chest wall: No suspicious bony lesions. Overlying soft tissues appear unremarkable. IMPRESSION: 1. No acute cardiopulmonary disease. Dictated by: Cameron Jones M.D. on 04/16/2023 at 2:09 Approved by: Cameron Jones M.D. on 04/16/2023 at 2:10
--- NOTE | 2023-04-16 00:11 | ED.ARRPALP ---
HPI - Arrhythmia/Palpitations General Chief Complaint: Arrhythmia/Palpitations Stated Complaint: possible heartattack Time Seen by Provider: 04/16/23 00:09 Source: patient and family Mode of arrival: Ambulatory History of Present Illness HPI narrative: 72-year-old gentleman with a history of hypertension, hyperlipidemia, COPD with continued tobacco abuse, prior history of rapid heart rate with reported ?shock? needed a number of years ago. Was in his usual state of health with no complaints around 11:00 p.m. tonight when he noted his heart rate starting to race. Over the next 15 or so minutes he began having increasing tightness across his chest and then pain up into his jaw and that was enough to encourage him to bring himself to the emergency room for further evaluation. He states that he isn't feeling more short of breath, he does occasionally use inhalers for his COPD. He reports no fevers, nausea, vomiting, diarrhea. Related Data Home Medications Medication Instructions Recorded Confirmed aspirin 81 mg chewable tablet 81 mg PO DAILY ##0 04/10/12 01/28/23 folic acid 1 mg tablet 1 mg PO DAILY ##0 04/10/12 01/28/23 Multivitamin Senior 1 tab PO DAILY 06/07/19 01/28/23 Turmeric Curcumin 1,000 mg PO DAILY 06/07/19 01/28/23 atorvastatin 10 mg tablet 10 mg PO DAILY 06/07/19 01/28/23 carvedilol 6.25 mg tablet 6.25 mg PO BID 06/07/19 01/28/23 diltiazem HCl 120 mg capsule,24 120 mg PO DAILY 06/07/19 01/28/23 hr,extended release ferrous sulfate 324 mg (65 mg 65 mg PO Q OTHER DAY 06/07/19 01/28/23 iron) tablet,delayed release lisinopril 20 1 tab PO DAILY 06/07/19 01/28/23 mg-hydrochlorothiazide 12.5 mg tablet magnesium oxide 400 mg PO DAILY 06/07/19 01/28/23 sildenafil 100 mg tablet (Viagra) 0 mg PO PRN PRN Erectile 06/07/19 01/28/23 Dysfunction albuterol sulfate 90 mcg/actuation 1 inh inhalation DIRECTED 09/28/19 01/28/23 breath activated powder inhaler (ProAir RespiClick) Previous Rx's Medication Instructions Recorded doxycycline hyclate 100 mg capsule 100 mg PO BID #14 caps 09/28/19 phenazopyridine 100 mg tablet 100 mg PO TID PRN pain 6 doses #7 09/21/21 (Pyridium) tabs sulfamethoxazole 800 1 tab PO BID #14 tabs 08/10/22 mg-trimethoprim 160 mg tablet (Bactrim DS) doxycycline hyclate 100 mg capsule 100 mg PO BID #14 caps 01/28/23 methylprednisolone 4 mg tablets in See Rx Instructions PO PER PKG DIR 01/28/23 a dose pack (Medrol (Estevan)) #21 ea benzonatate 100 mg capsule 100 mg PO BID PRN cough #20 caps 03/20/23 fluticasone propionate 50 1 spray intranasal Q12H #16 grams 03/20/23 mcg/actuation nasal spray,suspension (Flonase Allergy Relief) Allergies Allergy/AdvReac Type Severity Reaction Status Date / Time levofloxacin [From LEVAQUIN] Allergy Unknown Verified 01/28/23 07:28 doxycycline AdvReac Mild Verified 03/20/23 08:20 methylprednisolone AdvReac Mild Verified 03/20/23 08:20 Review of Systems Review of Systems Narrative: Pertinent positive and negative findings as per HPI Patient History Medical History Abscess of left arm Acute cystitis Atrial fibrillation COPD (chronic obstructive pulmonary disease) HLD (hyperlipidemia) HTN (hypertension) Psoriasis Social History household members: friend(s) Smoking Status: Current every day smoker alcohol intake: current Smoking Status: Current every day smoker tobacco type: cigars alcohol intake frequency: a few times a week Alcohol type: beer Substance Use Type: does not use Exam Initial Vital Signs Initial Vital Signs: Vital Signs Pulse Rate 163 H 04/16/23 00:00 Respiratory Rate 14 04/16/23 00:00 Pulse Oximetry 96 04/16/23 00:00 Oxygen Delivery Method Room Air 04/16/23 00:00 General: pale but in no acute distress. No overt diaphoresis. Able to give a complete and coherent history. Well-nourished well-developed HEENT: Moist mucous membranes, normal sclera with reactive pupils, Neck: No JVD, supple Respiratory: Lungs with minor scattered wheezes in all lung byrnes but no accessory muscle use Cardiac: Rapid and regular, I do not appreciate murmurs Abdomen: Soft, nontender, good bowel tones, no flank pain Skin: Pale Neurologic: Globally weak but otherwise Grossly neurologically intact with no obvious asymmetries or abnormalities Extremities: No trauma, well perfused Psych: Cooperative, appropriate insight and affect Course Orders Ordered: ED Orders 04/16/23 00:09 Complete Blood Count AUTO DIFF Stat Comprehensive Metabolic Panel Stat Lipase Stat Magnesium Stat PTT Partial Thromboplastin Saad Stat Prothrombin Time INR Stat Troponin & CK Cardiac Panel Stat 04/16/23 00:11 XR chest 1V Stat EKG-12 Lead Stat Sodium Chloride (Normal Saline 0.9%) 1,000 mls @ 150 mls/hr IV CONT [facility] Last Admin: 04/16/23 00:25 Dose: 150 mls/hr Documented By: SALINA Discontinued Medications Adenosine (Adenosine 6 Mg/2 Ml Vial) 6 mg IV NOW ONE Stop: 04/16/23 00:16 Last Admin: 04/16/23 00:21 Dose: 6 mg Documented By: SALINA Adenosine (Adenosine 6 Mg/2 Ml Vial) 12 mg IV NOW ONE Stop: 04/16/23 00:16 Last Admin: 04/16/23 00:27 Dose: 12 mg Documented By: SALINA Apixaban (Apixaban 5 Mg Tablet) 5 mg PO NOW ONE Stop: 04/16/23 00:34 Last Admin: 04/16/23 00:40 Dose: 5 mg Documented By: SALINA Aspirin (Aspirin 81 Mg Chew Tab) 324 mg PO NOW ONE Stop: 04/16/23 00:12 Last Admin: 04/16/23 01:13 Dose: Not Given Documented By: SALINA Metoprolol Tartrate (Metoprolol Tartrate 5 Mg/5 Ml Inj) 5 mg IV Q5M [facility] Stop: 04/16/23 00:56 Last Admin: 04/16/23 00:57 Dose: 5 mg Documented By: Admin: 04/16/23 00:52 Dose: 5 mg Documented By: Admin: 04/16/23 00:46 Dose: 5 mg Documented By: SALINA Propofol (Propofol 200 Mg/20 Ml Vial) 115 mg 1 mg/kg (115 mg) IV NOW ONE Stop: 04/16/23 00:33 Last Admin: 04/16/23 01:48 Dose: Not Given Documented By: SALINA Vital Signs Vital signs: Vital Signs - 8 hr 04/16/23 00:05 04/16/23 00:00 04/16/23 00:10 Temperature 98.3 F Pulse Rate 136 H 163 H 144 H Respiratory Rate 20 14 16 Blood Pressure Pulse Oximetry 94 96 95 Oxygen Delivery Method Room Air Room Air Room Air 04/16/23 00:10 04/16/23 00:25 04/16/23 00:25 Temperature Pulse Rate 144 H Respiratory Rate 12 Blood Pressure 105/75 113/82 Pulse Oximetry 95 Oxygen Delivery Method Room Air 04/16/23 00:30 04/16/23 00:30 04/16/23 00:42 Temperature Pulse Rate 147 H 147 H Respiratory Rate 14 18 Blood Pressure 118/81 Pulse Oximetry 96 96 Oxygen Delivery Method Room Air Room Air 04/16/23 00:42 04/16/23 00:51 04/16/23 00:51 Temperature Pulse Rate 140 H Respiratory Rate 18 Blood Pressure 115/77 129/73 Pulse Oximetry 92 Oxygen Delivery Method Room Air 04/16/23 00:56 04/16/23 00:56 04/16/23 01:00 Temperature Pulse Rate 131 H 134 H Respiratory Rate 16 14 Blood Pressure 108/59 L Pulse Oximetry 92 94 Oxygen Delivery Method Room Air 04/16/23 01:01 04/16/23 01:01 04/16/23 01:16 Temperature Pulse Rate 132 H 79 Respiratory Rate 21 19 Blood Pressure 112/59 L Pulse Oximetry 94 92 Oxygen Delivery Method Room Air Room Air 04/16/23 01:16 Temperature Pulse Rate Respiratory Rate Blood Pressure 106/68 Pulse Oximetry Oxygen Delivery Method MDM - Arrhythmia/Palpitations Lab Data 04/16/23 00:09 04/16/23 00:09 Labs: Lab Results 04/16/23 04/16/23 04/16/23 Range/Units 00:09 00:09 00:09 WBC 6.7 (4.5-11.0) X10^3/uL RBC 4.75 (4.5-5.9) X10^6/uL Hgb 13.8 (13.5-17.5) g/dL Hct 40.4 L (41-53) % MCV 84.9 (80-100) fL MCH 29.0 (26-34) PG MCHC 34.1 (30-36) % RDW 15.1 H (11.6-14.8) % Plt Count 189 (150-400) X10^3/uL Neut % (Auto) 56.8 (50-75) % Lymph % (Auto) 33.6 (25-40) % [place] % (Auto) 6.4 (3-14) % Eos % (Auto) 2.3 (2-4) % Baso % (Auto) 0.9 (0-2) % Neut # (Auto) 3800 (6084-4096) /uL Lymph # (Auto) 2300 (5782-6140) /uL [place] # (Auto) 400 (0-900) /uL Eos # (Auto) 200 (0-450) /uL Baso # (Auto) 100 (0-100) /uL PT 12.3 (10.1-12.7) SECONDS INR 1.1 (0.9-1.3) APTT 33 (26-36) SECONDS Sodium 138 (137-145) mmol/L Potassium 3.4 (3.4-5.1) mmol/L Chloride 103 (98-107) mmol/L Carbon Dioxide 25 (22-32) mmol/L BUN 10 (9-20) mg/dL Creatinine 0.97 (0.66-1.25) mg/dL Estimated GFR > 60 (>60) mL/min BUN/Creatinine Ratio 10.3 (6-22) Glucose 133 H (80-110) mg/dL Calcium 8.5 (8.4-10.2) mg/dL Magnesium 2.1 (1.6-2.3) mg/dL Total Bilirubin 0.7 (0.2-1.3) mg/dL AST 31 (17-59) IU/L ALT 51 H (<50) IU/L Alkaline Phosphatase 85 (38-126) U/L Total Creatine Kinase 67 (55-170) U/L Troponin I < 0.012 (0.01-0.034) ng/mL Total Protein 7.3 (6.3-8.2) g/dL Albumin 4.2 (3.5-5.0) g/dL Globulin 3.1 (1.7-4.1) g/dL Albumin/Globulin Ratio 1.4 (1.0-2.8) Lipase 57 (23-300) U/L MDM Narrative Medical decision making narrative: CC: Rapid heart rate onset 11:00 p.m. tonight Acute problem uncertain prognosis Complicating co-morbidities: Hypertension hyperlipidemia COPD Data collected from: patient, Social determinants of health that may influence the patients condition: Medical records reviewed: Notes from primary care, walk-in clinic and hospital discharge summary after admission for bacteremia are all reviewed Differential considered: Atrial fibrillation, 2-1 atrial flutter, supraventricular tachycardia, acute coronary syndrome, Exam documented above, pertinent findings include: Lab Test results independently reviewed as above. Pertinent findings: CBC is unremarkable Chemistries are unremarkable Troponin is undetectable Independently reviewed EKG #1 Narrow complex tachycardia 144 beats per minute. Uncertain if this is 221 flutter in the setting of taking a beta-norbert or supraventricular tachycardia Imaging studies independently reviewed: Chest x-ray does not show any signs of acute congestive heart failure Treatments: Patient has significant initially given 6 mg of IV adenosine with minimal effect. With 12 mg he slows down enough to confirm he is in atrial flutter. Re-evaluations: After adenosine, he is hemodynamically stable, will wait for blood work to return, Eliquis is given as long as there is no additional indications given his abrupt onset very clearly at 11:00 p.m. tonight he is an excellent candidate for cardioversion. 1:10am spontaneous conversion to SRN. Pt states he feels much better Discussion: 72-year-old gentleman with a history of paroxysmal atrial fibrillation. He would acute onset at 11:00 p.m. tonight. Adenosine was used to slow his rate down to confirm that he was in atrial flutter. He is on carvedilol at home. He was given a total of 3 doses of IV metoprolol. He converted spontaneously to sinus rhythm. His chads 2 score is 1 point which puts him at 2.8% risk event per year if not anticoagulated. 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 Will not make any recommendations to change baseline medications. Discharge Plan Departure Patient Disposition: Home Clinical Impression: AF (paroxysmal atrial fibrillation) Instructions: DI for Atrial Fibrillation Activity Restrictions/Additional Instructions: Thank you for coming in today You had an approximately 2 hour episode of atrial fibrillation with rapid ventricular response. We gave you medications to slowly your heart rate but you spontaneously converted to sinus rhythm. At this point your risk for stroke related to episodes of paroxysmal atrial fibrillation is low enough that recommendation is that you continue aspirin daily but do not need to be on additional anticoagulation. Please continue all of your usual medications You will need follow-up with your lawn and garden technician. Please call him and let them know that you are in the emergency room for atrial fibrillation and spontaneously converted. If you have recurrent episodes or additional episodes of chest pain or new findings you do need to return to the ER Prescriptions: No Action sulfamethoxazole-trimethoprim [Bactrim DS] 800-160 mg tablet 1 tab PO BID Qty: 14 0RF fluticasone propionate [Flonase Allergy Relief] 50 mcg/actuation spray,suspension 1 spray intranasal Q12H Qty: 16 0RF Rx Instructions: administer into each nostril benzonatate 100 mg capsule 100 mg PO BID PRN (Reason: cough) Qty: 20 0RF phenazopyridine [Pyridium] 100 mg tablet 100 mg PO TID PRN (Reason: pain) Qty: 7 0RF doxycycline hyclate 100 mg capsule 100 mg PO BID Qty: 14 0RF methylprednisolone [Medrol (Estevan)] 4 mg tablets,dose pack See Rx Instructions PO PER PKG DIR Qty: 21 0RF Rx Instructions: PO PER PKG DIR aspirin 81 mg Tablet,Chewable 81 mg PO DAILY Qty: 0 folic acid 1 MG tablet 1 mg PO DAILY Qty: 0 carvedilol 6.25 mg tablet 6.25 mg PO BID atorvastatin 10 mg tablet 10 mg PO DAILY lisinopril-hydrochlorothiazide 20-12.5 mg tablet 1 tab PO DAILY sildenafil [Viagra] 100 mg tablet 0 mg PO PRN PRN (Reason: Erectile Dysfunction) diltiazem HCl 120 mg capsule,extended release 24 hr 120 mg PO DAILY ferrous sulfate 324 mg (65 mg iron) Tablet,Delayed Release (Dr/Ec) 65 mg PO Q OTHER DAY magnesium oxide 400 mg magnesium Tablet 400 mg PO DAILY Multivitamin Senior 1 tab PO DAILY Turmeric Curcumin 1,000 mg 1,000 mg PO DAILY ProAir RespiClick 90 mcg/actuation aerosol powdr breath activated 1 inh INHALATION DIRECTED doxycycline hyclate 100 mg capsule 100 mg PO BID Qty: 14 0RF Referrals: Jud Rodriguez PA-C [Primary Care Provider] - Stand Alone Forms: Patient Portal/API
[2023-04-16] MEDS: ADENOSINE 6 MG/2 ML VIAL IV (00:21)
[2023-04-16 00:25] LABS: INR 1.1 (0.9-1.3); Prothrombin Time 12.3 SECONDS (10.1-12.7)
[2023-04-16] MEDS: SODIUM CHLORIDE 0.9% 1,000 ML 150 ML IV (00:25)
[2023-04-16] MEDS: ADENOSINE 6 MG/2 ML VIAL 12 MG IV (00:27)
[2023-04-16 00:28] LABS: PTT Partial Thromboplastin Tim 33 SECONDS (26-36)
[2023-04-16 00:30] LABS: Alanine Aminotransferase 51 IU/L (<50); Albumin 4.2 g/dL (3.5-5.0); Albumin Globulin Ratio 1.4 (1.0-2.8); Alkaline Phosphatase 85 U/L (38-126); Aspartate Aminotransferase 31 IU/L (17-59); BUN Creatinine Ratio 10.3 (6-22); Bilirubin Total 0.7 mg/dL (0.2-1.3); Blood Urea Nitrogen 10 mg/dL (9-20); Calcium 8.5 mg/dL (8.4-10.2); Carbon Dioxide 25 mmol/L (22-32); Chloride 103 mmol/L (98-107); Creatine Kinase 67 U/L (55-170); Estimated Glomerular Filt Rate > 60 mL/min (>60); Globulin 3.1 g/dL (1.7-4.1); Glucose 133 mg/dL (80-110); HEMOLYSIS < 15 (0-50); Lipase 57 U/L (23-300); Magnesium 2.1 mg/dL (1.6-2.3); Potassium 3.4 mmol/L (3.4-5.1); Sodium 138 mmol/L (137-145); Total Protein 7.3 g/dL (6.3-8.2)
[2023-04-16] MEDS: APIXABAN 5 MG TABLET PO (00:40)
[2023-04-16 00:41] LABS: Add Manual Diff / Slide Review NO; Basophils Absolute Auto 100 /uL (0-100); Basophils Percent Auto 0.9 % (0-2); Eosinophils Absolute Auto 200 /uL (0-450); Eosinophils Percent Auto 2.3 % (2-4); Hematocrit 40.4 % (41-53); Hemoglobin 13.8 g/dL (13.5-17.5); Lymphocytes Absolute Auto 2300 /uL (1100-4500); Lymphocytes Percent Auto 33.6 % (25-40); Mean Corpuscular HGB Conc 34.1 % (30-36); Mean Corpuscular Volume 84.9 fL (80-100); Monocytes Absolute Auto 400 /uL (0-900); Monocytes Percent Auto 6.4 % (3-14); Neutrophils Absolute Auto 3800 /uL (1500-7000); Neutrophils Percent Auto 56.8 % (50-75); Platelet Count 189 X10^3/uL (150-400); Red Blood Cell Count 4.75 X10^6/uL (4.5-5.9); Red Cell Distribution Width 15.1 % (11.6-14.8); Troponin I < 0.012 ng/mL (0.01-0.034); White Blood Cell Count 6.7 X10^3/uL (4.5-11.0)
[2023-04-16] MEDS: METOPROLOL TARTRATE 5 MG/5 ML INJ IV ×3 (00:46→00:57)
== END 2023-04-16 03:02 | disposition home or self-care (01) ==
PROVIDERS: Emergency Provider Emergency Medicine; PCP Physician Assistant Medical
DX: I48.0 Paroxysmal atrial fibrillation (principal); Z79.899 Other long term (current) drug therapy
CPT/HCPCS: 36415; 71045; 80053; 82550; 83690; 83735; 84484; 85025; 85610; 85730; 93005; 93010; 96361; 96374; 96375; 99284; J0153

== ENCOUNTER 2023-05-31 16:51 | Emergency (ER) | payer MEDICARE, OTHER, SELFPAY ==
[2019-09-30 11:21] VITALS: BMI 40.6
[2023-05-31 16:58] VITALS: BP 167/79; PULSE 75; RESP 18; TEMP 36.7; O2SAT 97; BMI 36.9
--- NOTE | 2023-05-31 17:05 | ED.WOUNDLAC ---
HPI - Wound/Laceration <Bailey Trevino PA-C - Last Filed: 05/31/23 17:52> General Chief Complaint: Head Injury Stated Complaint: HEAD LAC, NEEDS STICHES Time Seen by Provider: 05/31/23 16:57 Source: patient Mode of arrival: Ambulatory History of Present Illness HPI narrative: Patient is a 72-year-old male who presents after inadvertently walking into a air conditioning unit and lacerating his forehead. He was recently diagnosed with atrial fibrillation after an ER visit and is currently taking daily aspirin but no other anticoagulants. He denies loss of consciousness or nausea or vomiting. He endorses a mild headache. Related Data Home Medications Medication Instructions Recorded Confirmed aspirin 81 mg chewable tablet 81 mg PO DAILY ##0 04/10/12 01/28/23 folic acid 1 mg tablet 1 mg PO DAILY ##0 04/10/12 01/28/23 Multivitamin Senior 1 tab PO DAILY 06/07/19 01/28/23 Turmeric Curcumin 1,000 mg PO DAILY 06/07/19 01/28/23 atorvastatin 10 mg tablet 10 mg PO DAILY 06/07/19 01/28/23 carvedilol 6.25 mg tablet 6.25 mg PO BID 06/07/19 01/28/23 diltiazem HCl 120 mg capsule,24 120 mg PO DAILY 06/07/19 01/28/23 hr,extended release ferrous sulfate 324 mg (65 mg 65 mg PO Q OTHER DAY 06/07/19 01/28/23 iron) tablet,delayed release lisinopril 20 1 tab PO DAILY 06/07/19 01/28/23 mg-hydrochlorothiazide 12.5 mg tablet magnesium oxide 400 mg PO DAILY 06/07/19 01/28/23 sildenafil 100 mg tablet (Viagra) 0 mg PO PRN PRN Erectile 06/07/19 01/28/23 Dysfunction albuterol sulfate 90 mcg/actuation 1 inh inhalation DIRECTED 09/28/19 01/28/23 breath activated powder inhaler (ProAir RespiClick) Previous Rx's Medication Instructions Recorded doxycycline hyclate 100 mg capsule 100 mg PO BID #14 caps 09/28/19 phenazopyridine 100 mg tablet 100 mg PO TID PRN pain 6 doses #7 09/21/21 (Pyridium) tabs sulfamethoxazole 800 1 tab PO BID #14 tabs 08/10/22 mg-trimethoprim 160 mg tablet (Bactrim DS) doxycycline hyclate 100 mg capsule 100 mg PO BID #14 caps 01/28/23 methylprednisolone 4 mg tablets in See Rx Instructions PO PER PKG DIR 01/28/23 a dose pack (Medrol (Estevan)) #21 ea benzonatate 100 mg capsule 100 mg PO BID PRN cough #20 caps 03/20/23 fluticasone propionate 50 1 spray intranasal Q12H #16 grams 03/20/23 mcg/actuation nasal spray,suspension (Flonase Allergy Relief) Allergies Allergy/AdvReac Type Severity Reaction Status Date / Time levofloxacin [From LEVAQUIN] Allergy Unknown Verified 01/28/23 07:28 doxycycline AdvReac Mild Verified 03/20/23 08:20 methylprednisolone AdvReac Mild Verified 03/20/23 08:20 Review of Systems <Bailey Trevino PA-C - Last Filed: 05/31/23 17:52> Review of Systems ROS Unobtainable: All systems reviewed & are unremarkable except as noted in HPI and below Patient History <Bailey Trevino PA-C - Last Filed: 05/31/23 17:52> Medical History Abscess of left arm Acute cystitis Atrial fibrillation COPD (chronic obstructive pulmonary disease) HLD (hyperlipidemia) HTN (hypertension) Psoriasis Social History household members: friend(s) Smoking Status: Current every day smoker alcohol intake: current Smoking Status: Current every day smoker tobacco type: cigars alcohol intake frequency: a few times a week Alcohol type: beer Substance Use Type: does not use Exam <Bailey Trevino PA-C - Last Filed: 05/31/23 17:52> Narrative Exam Narrative: GENERAL: 72 year old patient appears stated age. Well-developed patient, in no distress. NEURO: AOx3. HEAD: 3 cm laceration just to the right of the midline forehead. Half of the laceration is within the hairline and half is on the forehead. Mild surrounding edema. Normocephalic. EYES: Pupils equal round and reactive. Extraocular motions intact. No scleral icterus. No injection or drainage. ENT: Nose without bleeding or purulent drainage. Airway patent. RESPIRATORY: No distress Initial Vital Signs Initial Vital Signs: Vital Signs Temperature 98.1 F 05/31/23 16:58 Pulse Rate 75 05/31/23 16:58 Respiratory Rate 18 05/31/23 16:58 Blood Pressure 167/79 H 05/31/23 16:58 Pulse Oximetry 97 05/31/23 16:58 Oxygen Delivery Method Room Air 05/31/23 16:58 <Breezy Jiang DO - Last Filed: 05/31/23 17:58> Initial Vital Signs Initial Vital Signs: Vital Signs Temperature 98.1 F 05/31/23 16:58 Pulse Rate 75 05/31/23 16:58 Respiratory Rate 18 05/31/23 16:58 Blood Pressure 167/79 H 05/31/23 16:58 Pulse Oximetry 97 05/31/23 16:58 Oxygen Delivery Method Room Air 05/31/23 16:58 Procedures <Bailey Trevino PA-C - Last Filed: 05/31/23 17:52> Laceration Repair Laceration 1: Site: scalp Side (If applicable): right Size (cm): 3 Description: linear and clean Depth: simple, single layer Local Anesthetic: lidocaine 2% Amount of anesthesia used (mL): 1.5 Pre-repair: wound explored and irrigated extensively Skin layer closed with: nylon (3 nylon sutures and 3 iron) Skin layer suture size: 5-0 Number of sutures: 3 Technique: simple, interrupted Course <Bailey Trevino PA-C - Last Filed: 05/31/23 17:52> Orders Ordered: Discontinued Medications Diphtheria/Tetanus/Acell Pertussis (Tet,Diph,Pertuss(Acell),Vac/Pf 0.5 Ml Syringe) 0.5 ml IM .ONCE ONE Stop: 05/31/23 17:35 Last Admin: 05/31/23 17:43 Dose: 0.5 ml Documented By: JULIO Vital Signs Vital signs: Vital Signs - 8 hr 05/31/23 16:58 05/31/23 17:45 Temperature 98.1 F Pulse Rate 75 88 Respiratory Rate 18 18 Blood Pressure 167/79 H Pulse Oximetry 97 98 Oxygen Delivery Method Room Air Room Air <DO Ree Cronin Last Filed: 05/31/23 17:58> Orders Ordered: Discontinued Medications Diphtheria/Tetanus/Acell Pertussis (Tet,Diph,Pertuss(Acell),Vac/Pf 0.5 Ml Syringe) 0.5 ml IM .ONCE ONE Stop: 05/31/23 17:35 Last Admin: 05/31/23 17:43 Dose: 0.5 ml Documented By: JULIO Vital Signs Vital signs: Vital Signs - 8 hr 05/31/23 16:58 05/31/23 17:45 Temperature 98.1 F Pulse Rate 75 88 Respiratory Rate 18 18 Blood Pressure 167/79 H Pulse Oximetry 97 98 Oxygen Delivery Method Room Air Room Air MDM - Wound/Laceration <Bailey Trevino PA-C - Last Filed: 05/31/23 17:52> [facility] Narrative Medical decision making narrative: Patient is a 72-year-old male who has a scalp laceration after walking into an air conditioning unit. He does not take any blood thinners and had no loss of consciousness. He is neurologic exam is normal and he reports just a mild headache. Laceration was repaired with iron within the hair and sutures on the forehead. Patient tolerated the procedure well. Patient is to return in 5 days for removal of sutures and iron. Patient's symptoms improved over duration of stay with above-stated therapies. Findings and discharge diagnosis discussed with patient/family followed by verbalization of understanding Return precautions discussed with patient/family whom verbalize understanding of diagnosis and plan Discharge Plan Departure Patient Disposition: Home Clinical Impression: Laceration Instructions: DI for Laceration Repair, DI for Laceration Repair -- Iron Activity Restrictions/Additional Instructions: *You have been diagnosed with scalp laceration. You have a combination of iron and sutures. You need to return in 5 days, which is , for removal of these. You could go to the walk-in clinic or the emergency room. You can shower and let the water run over the wound but not need describe it. You can cover it with antibiotic ointment. Return to the emergency department if there is any signs of infection such as redness, discharge or fever. *What to do: *Please continue to take your regular medications as directed. [ ] New medication prescriptions sent to your pharmacy: [ ] [ ] New medication written as a paper prescription [x ] No new medications given *Please follow up with your primary care provider in 2-3 days, call for an appointment. Let them know you were seen in the Emergency Department and that we ask that you be seen in follow up. We will electronically transmit a record of today's note if your PCP is in our system *If you do not have a primary care provider please contact the [facility] Resource line at [phone]. They will ask some questions about your medical history and help get you set up with a doctor in the community. *Return to Emergency Department if you should have any new, worsening or concerning symptoms, such as [fever greater than 101 F, shaking chills, worsening pain, persistent vomiting or other concerning symptoms]. Prescriptions: No Action sulfamethoxazole-trimethoprim [Bactrim DS] 800-160 mg tablet 1 tab PO BID Qty: 14 0RF fluticasone propionate [Flonase Allergy Relief] 50 mcg/actuation spray,suspension 1 spray intranasal Q12H Qty: 16 0RF Rx Instructions: administer into each nostril benzonatate 100 mg capsule 100 mg PO BID PRN (Reason: cough) Qty: 20 0RF phenazopyridine [Pyridium] 100 mg tablet 100 mg PO TID PRN (Reason: pain) Qty: 7 0RF doxycycline hyclate 100 mg capsule 100 mg PO BID Qty: 14 0RF methylprednisolone [Medrol (Estevan)] 4 mg tablets,dose pack See Rx Instructions PO PER PKG DIR Qty: 21 0RF Rx Instructions: PO PER PKG DIR aspirin 81 mg Tablet,Chewable 81 mg PO DAILY Qty: 0 folic acid 1 MG tablet 1 mg PO DAILY Qty: 0 carvedilol 6.25 mg tablet 6.25 mg PO BID atorvastatin 10 mg tablet 10 mg PO DAILY lisinopril-hydrochlorothiazide 20-12.5 mg tablet 1 tab PO DAILY sildenafil [Viagra] 100 mg tablet 0 mg PO PRN PRN (Reason: Erectile Dysfunction) diltiazem HCl 120 mg capsule,extended release 24 hr 120 mg PO DAILY ferrous sulfate 324 mg (65 mg iron) Tablet,Delayed Release (Dr/Ec) 65 mg PO Q OTHER DAY magnesium oxide 400 mg magnesium Tablet 400 mg PO DAILY Multivitamin Senior 1 tab PO DAILY Turmeric Curcumin 1,000 mg 1,000 mg PO DAILY ProAir RespiClick 90 mcg/actuation aerosol powdr breath activated 1 inh INHALATION DIRECTED doxycycline hyclate 100 mg capsule 100 mg PO BID Qty: 14 0RF Referrals: Jud Rodriguez PA-C [Primary Care Provider] - Stand Alone Forms: Patient Portal/API <Breezy Jiang, - Last Filed: 05/31/23 17:58> Cosign ED Attending Cosignature Attestation: Dr Jiang Co-Sign Statement: I was available for consultation during this patient's emergency department visit. This chart is signed by myself for administrative purposes only. I did not have direct contact with this patient during this visit. They were seen independently by the APC.
[2023-05-31] MEDS: TET,DIPH,PERTUSS(ACELL),VAC/PF 0.5 ML SYRINGE IM (17:43)
[2023-05-31 17:45] VITALS: PULSE 88; RESP 18; O2SAT 98
== END 2023-05-31 18:00 | disposition home or self-care (01) ==
PROVIDERS: Emergency Provider Physician Assistant; PCP Physician Assistant Medical
DX: S01.01XA Laceration without foreign body of scalp, initial encounter (principal); R51.9 Headache, unspecified; W22.8XXA Striking against or struck by other objects, initial encounter; Z79.82 Long term (current) use of aspirin; Z23 Encounter for immunization
CPT/HCPCS: 12002; 90471; 99283; 90715

== ENCOUNTER 2023-09-25 23:50 | Inpatient (IN) | payer MEDICARE, OTHER, SELFPAY ==
[2019-09-30 11:21] VITALS: BMI 40.6
[2023-09-25 23:57] VITALS: BP 97/67; RESP 19; TEMP 36.5; O2SAT 96; BMI 36.9
[2023-09-26] VITALS (59 sets, daily range): BP systolic 87–133; BP diastolic 53–77; PULSE 57–168; RESP 12–40; TEMP 37.2; O2SAT 87–99; BMI 36.9
--- NOTE | 2023-09-26 00:02 | DI.RAD.S_ITS ---
PROCEDURE: XR CHEST 1V INDICATIONS: chest pain TECHNIQUE: One view of the chest was acquired. COMPARISON: [facility], CR, XR CHEST 1V, 04/16/2023, 0:33. [facility], CR, XR CHEST 2V, 03/20/2023, 8:37. FINDINGS: Surgical changes and devices: None. Lungs and pleura: No consolidation or pleural effusion. Mediastinum: Heart size is at the upper limit of normal. Aortic calcifications. Bones and chest wall: Degenerative changes. IMPRESSION: No acute abnormality on this single view radiograph. Dictated by: Jorge Alberto Byrd M.D. on 09/26/2023 at 0:12 Approved by: Jorge Alberto Byrd M.D. on 09/26/2023 at 0:13
--- NOTE | 2023-09-26 00:16 | ED.CHESTPAIN ---
HPI - Chest Pain General Chief Complaint: Chest Pain Stated Complaint: afib Time Seen by Provider: 09/26/23 00:16 Source: patient Mode of arrival: Ambulatory Limitations: no limitations History of Present Illness HPI narrative: 73-year-old gentleman with history of hypertension, hyperlipidemia COPD who continues to smoke presents in atrial fibrillation with rapid ventricular response complaining of chest pain radiating through to his back. This started abruptly approximately an hour prior to presentation. He was seen in the emergency department in April of last year for the same. With metoprolol his rate slowed and he spontaneously converted prior to needing cardioversion. He remained hemodynamically stable throughout that entire that. Currently he is pale, somewhat diaphoretic, blood pressure is 94/62 and decreasing. He is not hemodynamically stable and we will electrically cardiovert him. He is alert and aware. Went over all of the indications for emergent cardioversion. He understands. He is given a dose of oral Eliquis prior to cardioversion. Propofol will be use, consent is obtained. He does note that he is had upper respiratory symptoms for the past 4-5 days. Slight increased cough, does continue to use tobacco. Is not complaining of dyspnea. Had not been noting chest pain or palpitations until the acute onset of this atrial fibrillation this evening. He denies fevers, lower extremity edema but does note that he is had some mild headaches and body aches. Related Data Home Medications Medication Instructions Recorded Confirmed aspirin 81 mg chewable tablet 81 mg PO DAILY ##0 04/10/12 08/13/23 folic acid 1 mg tablet 1 mg PO DAILY ##0 04/10/12 08/13/23 Multivitamin Senior 1 tab PO DAILY 06/07/19 08/13/23 Turmeric Curcumin 1,000 mg PO DAILY 06/07/19 08/13/23 atorvastatin 10 mg tablet 10 mg PO DAILY 06/07/19 08/13/23 carvedilol 6.25 mg tablet 6.25 mg PO BID 06/07/19 08/13/23 diltiazem HCl 120 mg capsule,24 120 mg PO DAILY 06/07/19 08/13/23 hr,extended release ferrous sulfate 324 mg (65 mg 65 mg PO Q OTHER DAY 06/07/19 08/13/23 iron) tablet,delayed release lisinopril 20 1 tab PO DAILY 06/07/19 08/13/23 mg-hydrochlorothiazide 12.5 mg tablet magnesium oxide 400 mg PO DAILY 06/07/19 08/13/23 sildenafil 100 mg tablet (Viagra) 0 mg PO PRN PRN Erectile 06/07/19 08/13/23 Dysfunction albuterol sulfate 90 mcg/actuation 1 inh inhalation DIRECTED 09/28/19 08/13/23 breath activated powder inhaler (ProAir RespiClick) Previous Rx's Medication Instructions Recorded doxycycline hyclate 100 mg capsule 100 mg PO BID #14 caps 09/28/19 phenazopyridine 100 mg tablet 100 mg PO TID PRN pain 6 doses #7 09/21/21 (Pyridium) tabs sulfamethoxazole 800 1 tab PO BID #14 tabs 08/10/22 mg-trimethoprim 160 mg tablet (Bactrim DS) doxycycline hyclate 100 mg capsule 100 mg PO BID #14 caps 01/28/23 methylprednisolone 4 mg tablets in See Rx Instructions PO PER PKG DIR 01/28/23 a dose pack (Medrol (Estevan)) #21 ea benzonatate 100 mg capsule 100 mg PO BID PRN cough #20 caps 03/20/23 fluticasone propionate 50 1 spray intranasal Q12H #16 grams 03/20/23 mcg/actuation nasal spray,suspension (Flonase Allergy Relief) Allergies Allergy/AdvReac Type Severity Reaction Status Date / Time levofloxacin [From LEVAQUIN] Allergy Unknown Verified 08/13/23 10:01 doxycycline AdvReac Mild Verified 08/13/23 10:01 methylprednisolone AdvReac Mild Verified 08/13/23 10:01 Review of Systems Review of Systems Narrative: Pertinent positive and negative findings as per HPI Patient History Medical History Abscess of left arm Acute cystitis Psoriasis COPD (chronic obstructive pulmonary disease) HLD (hyperlipidemia) HTN (hypertension) Atrial fibrillation Social History household members: friend(s) Smoking Status: Current every day smoker alcohol intake: current Smoking Status: Current every day smoker tobacco type: cigars alcohol intake frequency: a few times a week Alcohol type: beer Substance Use Type: does not use Exam Initial Vital Signs Initial Vital Signs: Vital Signs Temperature 97.7 F 09/25/23 23:57 Respiratory Rate 19 09/25/23 23:57 Blood Pressure 97/67 09/25/23 23:57 Pulse Oximetry 96 09/25/23 23:57 Oxygen Delivery Method Room Air 09/25/23 23:57 General: Pale slightly diaphoretic but Able to give a complete and coherent history. HEENT: Moist mucous membranes, normal sclera with reactive pupils, Neck: No JVD, supple Respiratory: Lungs with rhonchi in both bases that clear somewhat with deep coughing. Scattered wheezes throughout lung byrnes, no crackles were appreciated Cardiac: Rapid and irregular Abdomen: Soft, nontender, good bowel tones, no flank pain Skin: Decreased lower extremity perfusion but still has maintained appropriate capillary refill Neurologic: Grossly neurologically intact with no obvious asymmetries or abnormalities Extremities: No trauma, Psych: Cooperative, appropriate insight and affect Procedures Cardioversion Time of Cardioversion: 23:30 Consent Signed: Yes Indication: Unstable atrial fibrillation with rapid ventricular response Stability: Unstable Number of attempts (shocks): 1 Joules used: 200 Cardiac rhythm post-cardioversion: Sinus rhythm Additional Comments: Synced cardioversion Procedural Sedation Time of procedure: 23:30 Time out performed: Yes Indication: cardioversion ASA Class: III Mallampati Airway Classification: Class III Preparation: ekg monitor tech applied, pulse oximeter, capnometry used, supplemental O2 applied, suction/airway equipment at bedside and IV secured IV Propofol dose (mg): 60 Intraservice time/total sedation time (min): 8 ED Sedation Level: Moderate (Concious) Patient Tolerated Procedure: Well Complications: none Interventions: Airway repositioned Course Orders Ordered: ED Orders 09/26/23 00:02 XR chest 1V Stat EKG-12 Lead Stat 09/26/23 00:15 Complete Blood Count AUTO DIFF Stat Comprehensive Metabolic Panel Stat Lipase Stat Magnesium Stat PTT Partial Thromboplastin Saad Stat Prothrombin Time INR Stat Troponin & CK Cardiac Panel Stat 09/26/23 01:29 BNP [NT-proBNP (BNP-Adult 18+)] Stat Respiratory Panel (Film Array) Stat 09/26/23 02:30 Troponin I Stat DILTIAZEM (Diltiazem 125 Mg/125 Ml-D5w) 125 mg in 125 mls @ 5 mls/hr IV TITRATE SONYA; Protocol Discontinued Medications Apixaban (Apixaban 5 Mg Tablet) 5 mg PO NOW ONE Stop: 09/26/23 00:21 Last Admin: 09/26/23 00:26 Dose: 5 mg Documented By: MELLISSA Aspirin (Aspirin 81 Mg Chew Tab) 324 mg PO NOW ONE Stop: 09/26/23 00:03 Last Admin: 09/26/23 00:51 Dose: 243 mg Documented By: GAIL Diltiazem HCl (Diltiazem 5 Mg/Ml Sdv) 20 mg IV NOW ONE Stop: 09/26/23 01:28 Last Admin: 09/26/23 01:32 Dose: 20 mg Amiodarone HCl/Dextrose (Nexterone) 150 mg in 100 mls @ 600 mls/hr IV NOW ONE; Protocol Stop: 09/26/23 01:48 Last Infusion: 09/26/23 02:08 Dose: Infused Methylprednisolone (Methylprednisolone 125 Mg/2 Ml Vial) 125 mg IV NOW ONE Stop: 09/26/23 01:30 Last Admin: 09/26/23 01:48 Dose: 125 mg Propofol (Propofol 200 Mg/20 Ml Vial) 200 mg IV NOW ONE Stop: 09/26/23 00:21 Last Admin: 09/26/23 00:31 Dose: 60 mg Documented By: GAIL Vital Signs Vital signs: Vital Signs - 8 hr 09/25/23 23:57 09/26/23 00:10 09/26/23 00:29 Temperature 97.7 F 99 F Pulse Rate 168 H 167 H Respiratory Rate 19 18 Blood Pressure 97/67 94/69 111/71 Pulse Oximetry 96 97 Oxygen Delivery Method Room Air Oxygen Flow Rate 09/26/23 00:34 09/26/23 00:37 09/26/23 00:45 Temperature Pulse Rate 101 H 96 H 96 H Respiratory Rate 12 16 21 Blood Pressure 124/67 109/61 Pulse Oximetry 97 96 96 Oxygen Delivery Method Room Air Oxygen Flow Rate 2 09/26/23 00:50 09/26/23 00:55 09/26/23 01:00 Temperature Pulse Rate 95 H 92 H 91 H Respiratory Rate 23 17 19 Blood Pressure 107/61 111/59 L Pulse Oximetry 96 95 95 Oxygen Delivery Method Room Air Room Air Oxygen Flow Rate 09/26/23 01:20 09/26/23 01:20 09/26/23 01:28 Temperature Pulse Rate 90 150 H Respiratory Rate 22 18 Blood Pressure 101/58 L Pulse Oximetry 95 96 Oxygen Delivery Method Oxygen Flow Rate 09/26/23 01:28 09/26/23 01:30 09/26/23 01:32 Temperature Pulse Rate 150 H 141 H Respiratory Rate 17 Blood Pressure 103/72 103/72 Pulse Oximetry 96 Oxygen Delivery Method Oxygen Flow Rate 09/26/23 01:43 09/26/23 01:43 09/26/23 01:55 Temperature Pulse Rate 116 H Respiratory Rate 22 Blood Pressure 103/55 L 98/56 L Pulse Oximetry 94 Oxygen Delivery Method Oxygen Flow Rate 09/26/23 01:55 09/26/23 02:00 09/26/23 02:00 Temperature Pulse Rate 105 H 111 H Respiratory Rate 16 23 Blood Pressure 107/73 Pulse Oximetry 95 95 Oxygen Delivery Method Oxygen Flow Rate 09/26/23 02:05 09/26/23 02:05 09/26/23 02:06 Temperature Pulse Rate 139 H Respiratory Rate 21 Blood Pressure 87/67 L 88/68 L Pulse Oximetry 95 Oxygen Delivery Method Oxygen Flow Rate 09/26/23 02:06 09/26/23 02:10 09/26/23 02:10 Temperature Pulse Rate 140 H 141 H Respiratory Rate 20 17 Blood Pressure 103/63 Pulse Oximetry 94 93 Oxygen Delivery Method Oxygen Flow Rate 09/26/23 02:16 09/26/23 02:16 09/26/23 02:20 Temperature Pulse Rate 140 H 112 H Respiratory Rate 17 20 Blood Pressure 105/65 93/73 Pulse Oximetry 94 94 Oxygen Delivery Method Room Air Oxygen Flow Rate 09/26/23 02:25 09/26/23 02:30 09/26/23 02:30 Temperature Pulse Rate 87 115 H Respiratory Rate 18 17 Blood Pressure 109/61 116/60 Pulse Oximetry 95 95 Oxygen Delivery Method Room Air Oxygen Flow Rate 09/26/23 02:35 09/26/23 02:35 09/26/23 02:40 Temperature Pulse Rate 101 H Respiratory Rate 17 Blood Pressure 113/59 L 95/56 L Pulse Oximetry 94 Oxygen Delivery Method Room Air Oxygen Flow Rate 09/26/23 02:40 09/26/23 02:45 09/26/23 02:45 Temperature Pulse Rate 106 H 105 H Respiratory Rate 16 17 Blood Pressure 108/55 L Pulse Oximetry 95 94 Oxygen Delivery Method Oxygen Flow Rate 09/26/23 02:50 09/26/23 02:50 09/26/23 02:55 Temperature Pulse Rate 110 H 106 H Respiratory Rate 17 16 Blood Pressure 110/56 L Pulse Oximetry 95 94 Oxygen Delivery Method Oxygen Flow Rate 09/26/23 02:55 09/26/23 03:00 09/26/23 03:00 Temperature Pulse Rate 104 H Respiratory Rate 22 Blood Pressure 106/59 L 88/54 L Pulse Oximetry 94 Oxygen Delivery Method Oxygen Flow Rate 09/26/23 03:05 09/26/23 03:05 Temperature Pulse Rate 106 H Respiratory Rate 17 Blood Pressure 100/65 Pulse Oximetry 95 Oxygen Delivery Method Room Air Oxygen Flow Rate MDM - Chest Pain Lab Data 09/26/23 00:15 09/26/23 00:15 Labs: Lab Results 09/26/23 09/26/23 09/26/23 Range/Units 00:15 01:55 02:30 WBC 7.3 (4.5-11.0) X10^3/uL RBC 4.52 (4.5-5.9) X10^6/uL Hgb 13.3 L (13.5-17.5) g/dL Hct 39.1 L (41-53) % MCV 86.5 (80-100) fL MCH 29.4 (26-34) PG MCHC 34.0 (30-36) % RDW 14.2 (11.6-14.8) % Plt Count 175 (150-400) X10^3/uL Neut % (Auto) 66.6 (50-75) % Lymph % (Auto) 21.0 L (25-40) % [place] % (Auto) 10.7 (3-14) % Eos % (Auto) 1.0 L (2-4) % Baso % (Auto) 0.7 (0-2) % Neut # (Auto) 4900 (0942-9541) /uL Lymph # (Auto) 1500 (7473-8729) /uL [place] # (Auto) 800 (0-900) /uL Eos # (Auto) 100 (0-450) /uL Baso # (Auto) 100 (0-100) /uL PT 13.3 H (9.4-12.5) SECONDS INR 1.2 (0.9-1.3) APTT 31 (25.1-36.5) SECONDS Sodium 136 L (137-145) mmol/L Potassium 3.5 (3.4-5.1) mmol/L Chloride 100 (98-107) mmol/L Carbon Dioxide 23 (22-32) mmol/L BUN 12 (9-20) mg/dL Creatinine 0.71 (0.66-1.25) mg/dL Estimated GFR > 60 (>60) mL/min BUN/Creatinine Ratio 16.9 (6-22) Glucose 139 H (80-110) mg/dL Calcium 9.1 (8.4-10.2) mg/dL Magnesium 2.2 (1.6-2.3) mg/dL Total Bilirubin 0.7 (0.2-1.3) mg/dL AST 40 (17-59) IU/L ALT 44 (<50) IU/L Alkaline Phosphatase 83 (38-126) U/L Total Creatine Kinase 83 (55-170) U/L Troponin I < 0.012 0.055 H (0.01-0.034) ng/mL NT-Pro-B Natriuret Pep 245 H (<125) pg/mL Total Protein 7.3 (6.3-8.2) g/dL Albumin 4.0 (3.5-5.0) g/dL Globulin 3.3 (1.7-4.1) g/dL Albumin/Globulin Ratio 1.2 (1.0-2.8) Lipase 67 (23-300) U/L Chlamy pneumoniae PCR Not detected (Not Detect) Adenovirus (PCR) Not detected (Not Detect) B.parapertussis DNA PCR Not detected (Not Detecte) Coronavirus OC43 (PCR) Not detected (Not Detect) Coronavirus HKU1 (PCR) Not detected (Not Detect) Coronavirus 229E (PCR) Not detected (Not Detect) SARS-CoV-2 (PCR) Not detected (Not Detecte) Coronavirus NL63 (PCR) Not detected (Not Detect) Human Metapneumovir PCR Not detected (Not Detect) Influenza Type A (PCR) Not detected (Not Detect) Influenza Type B (PCR) Not detected (Not Detect) M. pneumoniae (PCR) Not detected (Not Detect) Parainfluenza 1 (PCR) Not detected (Not Detect) Parainfluenza 2 (PCR) Not detected (Not Detect) Parainfluenza 3 (PCR) Not detected (Not Detect) Parainfluenza 4 (PCR) Not detected (Not Detect) RSV (PCR) Not detected (Not Detect) Entero/Rhino (PCR) Not detected (Not Detect) MDM Narrative Medical decision making narrative: CC: Atrial fibrillation with rapid ventricular response Complicating co-morbidities: Likely concurrent upper upper respiratory viral infection with COPD exacerbation, continued tobacco use, hypertension hyperlipidemia Data collected from: patient, Medical records reviewed: Prior ER visit for AFib with RVR in April of 2023 is reviewed Differential considered: AFib with RVR secondary to acute coronary syndrome, secondary to upper respiratory infection Exam documented above, pertinent findings include: Hypotensive, pale and diaphoretic with his rate in the 160s. Urgent cardioversion is performed successfully. He does have bibasilar rhonchi and wheezing. No abdominal tenderness Lab Test results independently reviewed as above. Pertinent findings: CBC is unremarkable Chemistries are reassuring ProBNP is only minimally elevated at 245 Initial troponin is 0.012. Repeat troponin after single shock, has increased slightly 2.0 5 5. It is unclear whether this is in response to the cardioversion or to the prolonged rapid rate causing the initial hemodynamic instability. Independently reviewed EKG: Initial EKG shows a rate of 163, atrial fibrillation with rapid ventricular response. Lateral ST depression. Post cardioversion EKG shows sinus rhythm lateral ST changes have resolved Imaging studies independently reviewed: No significant abnormalities appreciated Consultations:Dr Tegan gruber reviewed presentation with hemodynamically unstable atrial fibrillation with rapid ventricular response with positive response to initial single cardioversion. Spontaneous returned to atrial fibrillation about an hour afterwards. He had been given a dose of diltiazem with minimal effect and rate. I have given him a dose of amiodarone again with minimal effect on right. Pressures were soft. Discussed options from this point given the positive troponin. His recommendation was another 150 of amnio loaded followed with loading doses over the next 24 hours. Continuing the apixaban as already started. Obtaining echocardiogram during day hours and continuing to follow drops. Treatments: Successful cardioversion to sinus rhythm please see procedure notes as above. Oral apixaban 5 mg was given prior to cardioversion. 130 am reverted back to atrial fibrillation initially a rate of the 120s. We will try 150 of IV amiodarone. We will see if he may chemically cardiovert. He did spontaneously cardiovert when seen for this in April. Time of onset was very clearly at 10:30 a.m. this evening. Re-evaluations: 145pmPatient is are Re updated on plans labs, findings and concerns. Understand that he has converted back to atrial fibrillation. Discussion: 73-year-old gentleman who presents with atrial fibrillation, rapid ventricular response hemodynamically unstable. He is cardioverted electrically successfully. Additional lab work is obtained initial troponin is unremarkable. Unfortunately he returned to atrial fibrillation rates in the 120s with blood pressures soft but maps still maintained 65. Second blood returns and 2nd trop is elevated at 0.055. His chest pain did resolve completely after the initial cardioversion and did not return with the 2nd episode of atrial fibrillation. Was given a dose of diltiazem with no change to the right. Was then given 150 mg of IV amiodarone with little change to the rate. Care is reviewed with visual coordinator who at this point recommended hospital admission to trend troponins, loading amiodarone and continuing with infusion over the next 24 hours, continuing the oral apixaban and obtaining an echocardiogram. All of this is reviewed with the patient and his . Questions are answered. Discussed with the admitting hospitalist service and patient will be admitted. With initial pulmonary exam he has some moderate wheeze and increased sputum productivity. Reports some mild upper respiratory symptoms. Respiratory panel is unremarkable. He was given 120 mg of Solu-Medrol for possibility of the COPD exacerbation. There was no evidence of pneumonia at this time and his oxygenation remained appropriate. Critical Care Time Critical Care Time Critical Care Time: Yes Total Critical Care Time: 41 Attestation: Critical care time is separate from other billable procedures. There is a high probability of a significant, sudden or life-threatening deterioration that requires my full and direct attention, intervention and personal management. This critical care time includes consultation with family and other consulting doctors, review of records, and interpretation of data from labs, EKGs and imaging as well as managements of hemodynamically unstable atrial fibrillation with rapid ventricular response with continued management using parenteral medications. Discharge Plan Departure Patient Disposition: Admitted As Inpatient Clinical Impression: Atrial fibrillation with rapid ventricular response, COPD with exacerbation, Continuous tobacco abuse, Elevated troponin Hypotension Qualifiers: Hypotension type: unspecified hypotension type Qualified Code(s): I95.9 - Hypotension, unspecified Prescriptions: No Action sulfamethoxazole-trimethoprim [Bactrim DS] 800-160 mg tablet 1 tab PO BID Qty: 14 0RF fluticasone propionate [Flonase Allergy Relief] 50 mcg/actuation spray,suspension 1 spray intranasal Q12H Qty: 16 0RF Rx Instructions: administer into each nostril benzonatate 100 mg capsule 100 mg PO BID PRN (Reason: cough) Qty: 20 0RF phenazopyridine [Pyridium] 100 mg tablet 100 mg PO TID PRN (Reason: pain) Qty: 7 0RF doxycycline hyclate 100 mg capsule 100 mg PO BID Qty: 14 0RF methylprednisolone [Medrol (Estevan)] 4 mg tablets,dose pack See Rx Instructions PO PER PKG DIR Qty: 21 0RF Rx Instructions: PO PER PKG DIR aspirin 81 mg Tablet,Chewable 81 mg PO DAILY Qty: 0 folic acid 1 MG tablet 1 mg PO DAILY Qty: 0 carvedilol 6.25 mg tablet 6.25 mg PO BID atorvastatin 10 mg tablet 10 mg PO DAILY lisinopril-hydrochlorothiazide 20-12.5 mg tablet 1 tab PO DAILY sildenafil [Viagra] 100 mg tablet 0 mg PO PRN PRN (Reason: Erectile Dysfunction) diltiazem HCl 120 mg capsule,extended release 24 hr 120 mg PO DAILY ferrous sulfate 324 mg (65 mg iron) Tablet,Delayed Release (Dr/Ec) 65 mg PO Q OTHER DAY magnesium oxide 400 mg magnesium Tablet 400 mg PO DAILY Multivitamin Senior 1 tab PO DAILY Turmeric Curcumin 1,000 mg 1,000 mg PO DAILY ProAir RespiClick 90 mcg/actuation aerosol powdr breath activated 1 inh INHALATION DIRECTED doxycycline hyclate 100 mg capsule 100 mg PO BID Qty: 14 0RF Referrals: Jud Rodriguez PA-C [Primary Care Provider] - Admit Date/Time: 09/26/23 04:12 Admit Provider: Breezy Lawson
[2023-09-26] MEDS: APIXABAN 5 MG TABLET PO ×2 (00:26→08:30)
[2023-09-26 00:31] LABS: Add Manual Diff / Slide Review NO; Basophils Absolute Auto 100 /uL (0-100); Basophils Percent Auto 0.7 % (0-2); Eosinophils Absolute Auto 100 /uL (0-450); Hematocrit 39.1 % (41-53); Hemoglobin 13.3 g/dL (13.5-17.5); INR 1.2 (0.9-1.3); Lymphocytes Absolute Auto 1500 /uL (1100-4500); Mean Corpuscular Hemoglobin 29.4 PG (26-34); Mean Corpuscular Volume 86.5 fL (80-100); Monocytes Absolute Auto 800 /uL (0-900); Monocytes Percent Auto 10.7 % (3-14); Neutrophils Absolute Auto 4900 /uL (1500-7000); Neutrophils Percent Auto 66.6 % (50-75); Platelet Count 175 X10^3/uL (150-400); Prothrombin Time 13.3 SECONDS (9.4-12.5); Red Blood Cell Count 4.52 X10^6/uL (4.5-5.9); Red Cell Distribution Width 14.2 % (11.6-14.8); White Blood Cell Count 7.3 X10^3/uL (4.5-11.0)
[2023-09-26] MEDS: propofoL 200 MG/20 ML VIAL IV (00:31)
[2023-09-26 00:34] LABS: PTT Partial Thromboplastin Tim 31 SECONDS (25.1-36.5)
[2023-09-26 00:37] LABS: Alanine Aminotransferase 44 IU/L (<50); Albumin Globulin Ratio 1.2 (1.0-2.8); Alkaline Phosphatase 83 U/L (38-126); Aspartate Aminotransferase 40 IU/L (17-59); BUN Creatinine Ratio 16.9 (6-22); Bilirubin Total 0.7 mg/dL (0.2-1.3); Blood Urea Nitrogen 12 mg/dL (9-20); Calcium 9.1 mg/dL (8.4-10.2); Carbon Dioxide 23 mmol/L (22-32); Chloride 100 mmol/L (98-107); Creatine Kinase 83 U/L (55-170); Estimated Glomerular Filt Rate > 60 mL/min (>60); Globulin 3.3 g/dL (1.7-4.1); Glucose 139 mg/dL (80-110); HEMOLYSIS < 15 (0-50); Lipase 67 U/L (23-300); Magnesium 2.2 mg/dL (1.6-2.3); Potassium 3.5 mmol/L (3.4-5.1); Sodium 136 mmol/L (137-145); Total Protein 7.3 g/dL (6.3-8.2)
[2023-09-26 00:48] LABS: Troponin I < 0.012 ng/mL (0.01-0.034)
[2023-09-26] MEDS: ASPIRIN 81 MG CHEW TAB 324 MG PO (00:51)
--- NOTE | 2023-09-26 01:30 | PC.NURSE ---
In room talking with patient when HR increased back to 150s, Pt hr appears to have returned to afib rvr. Denies any chest pain at this time. Denies dizziness or lightheadedness. Provider aware and new orders given.
[2023-09-26] MEDS: dilTIAZem 5 MG/ML SDV 20 MG IV (01:32)
[2023-09-26] MEDS: methylPREDNISolone 125 MG/2 ML VIAL IV (01:48)
[2023-09-26] MEDS: AMIODARONE 150 MG/100 ML PIGGYBACK 600 MG IV ×2 (01:48→03:55)
[2023-09-26 02:33] LABS: NT-proBNP (BNP-Adult 18+) 245 pg/mL (<125)
[2023-09-26 02:55] LABS: Adenovirus Not Detected (Not Detect); B. parapertussis Not Detected (Not Detecte); Bordetella pertussis Not Detected (Not Detect); Chlamydophila pneumoniae Not Detected (Not Detect); Coronavirus 229E Not Detected (Not Detect); Coronavirus HKU1 Not Detected (Not Detect); Coronavirus NL 63 Not Detected (Not Detect); Coronavirus OC43 Not Detected (Not Detect); Human Metapneumovirus Not Detected (Not Detect); Human Rhinovirus/Enterovirus Not Detected (Not Detect); Influenza A Not Detected (Not Detect); Influenza B Not Detected (Not Detect); Mycoplasma pneumoniae Not Detected (Not Detect); Parainfluenza Virus 1 Not Detected (Not Detect); Parainfluenza Virus 2 Not Detected (Not Detect); Parainfluenza Virus 3 Not Detected (Not Detect); Parainfluenza Virus 4 Not Detected (Not Detect); Respiratory Syncytial Virus Not Detected (Not Detect); SARS- CoV-2 Not Detected (Not Detecte)
[2023-09-26 02:59] LABS: Troponin I 0.055 ng/mL (0.01-0.034)
--- NOTE | 2023-09-26 03:26 | DI.ECHO.S_ITS ---
[facility]---------+ [facility] +---------+ : : [address] : : : : [id number] : : : : Phone: [phone] Echocardiogram Report + + :Name: JENNIFER BUTTERFIELD Study Date: 09/26/2023 Height: 69 in : [id number] ReadingLocation: Weight: 250 lb : : Gender: Male BSA: 2.3 m2 : :: 1950 Age: 73 yrs BP: 104/67 mmHg: :Reason For Study: Atrial fibrillation : : Performed By: Santa Mendez : :Referring: TIFFANIE CARDENAS L : + + Interpretation Summary There is mild concentric left ventricular hypertrophy. The ejection fraction is estimated to be 55-60%. There is slight calcification extending into the subvalvular apparatus. The aortic valve is moderately calcified. The calculated aortic valve area is 1.6 cm2. The peak aortic velocity is 2.5 m/sec. The peak aortic velocity on the previous exam was 2.2 m/sec. The right ventricular systolic pressure is estimated to be at least 37 mmHg based on an estimated right atrial pressure of 15 mm Hg. Procedure: A two-dimensional transthoracic echocardiogram with color flow and Doppler was performed. The study quality was technically adequate. Comparison is made with the echocardiogram of 06-08-19. The patient was in sinus rhythm with heart rates between 65-66 bpm during the exam. Left Ventricle: The left ventricle is normal in size. There is mild concentric left ventricular hypertrophy. The ejection fraction is estimated to be 55-60%. Left ventricular wall motion is normal. Diastolic parameters suggest a relaxation abnormality of the left ventricle, consistent with probable normal filling pressures. Right Ventricle: The right ventricle grossly appears normal in size with probable normal systolic function. Atria: The left atrium is mildly dilated. Right atrial size is normal. The interatrial septum grossly appears intact with no obvious evidence for an atrial septal defect. Mitral Valve: The mitral valve leaflets appear mildly thickened, but open well. There is slight calcification extending into the subvalvular apparatus. There is no mitral regurgitation noted. Aortic Valve: The aortic valve is trileaflet. The aortic valve is moderately calcified. The aortic valve area is 2.2 centimeters squared by planimetry. The calculated aortic valve area is 1.6 cm2. The peak aortic velocity is 2.5 m/sec. The peak aortic velocity on the previous exam was 2.2 m/sec. No aortic regurgitation is present. Tricuspid Valve: The tricuspid valve leaflets are thin and pliable. The tricuspid valve leaflets are thickened and/or calcified, but open well. There is a trace or physiologic amount of tricuspid regurgitation. The right ventricular systolic pressure is estimated to be at least 37 mmHg based on an estimated right atrial pressure of 15 mm Hg. Pulmonic Valve: The pulmonic valve is not well seen, but is grossly normal. There is a trace or physiologic amount of pulmonic regurgitation. Great Vessels: The aortic root is mildly dilated. The ascending aorta is mildly enlarged. The aortic arch could not be visualized. The IVC is dilated (diameter is greater than 2.1 cm) and it collapses less than 50% with a sniff. This suggests a high right atrial pressure of 15 mm Hg. Pericardium/ Pleura There is a trivial to small pericardial effusion noted. There is no pleural effusion. MMode/2D Measurements & Calculations LVIDd: 5.0 cm LVOT diam: 2.3 cm LVIDs: 3.1 cm Ao root diam: 4.0 cm FS: 37.6 % asc Aorta Diam: 3.9 cm EPSS: 0.67 cm IVSd: 1.9 cm LVPWd: 0.89 cm LV de leon. diameter/BSA (cm/m^2): 2.2 LV sys. diameter/BSA (cm/m^2): 1.4 LA A2 area: 27.7 cm2 RA long axis: 4.9 cm LA A4 area: 28.3 cm2 RA area: 15.6 cm2 LA length (vol): 6.6 cm RA vol: 42.2 ml LA vol: 101.0 ml RA : 18.6 ml/m2 LA vol index: 44.5 ml/m2 IVC diam: 2.4 cm RVD1 (basal): 2.6 cm Doppler Measurements & Calculations Ao V2 max: 253.9 cm/sec LVOT Max Andrews: 95.6 cm/sec Ao V2 mean: 197.9 cm/sec LV V1 max P.7 mmHg Ao max P.8 mmHg LV V1 VTI: 24.8 cm Ao mean P.8 mmHg HUMBERTO(I,D): 1.7 cm2 Ao V2 VTI: 61.0 cm HUMBERTO(V,D): 1.6 cm2 sev ratio: 0.41 HUMBERTO indexed to BSA (cm^2/m^2): 0.75 MV E max andrews: 82.5 cm/sec TR max andrews: 232.5 cm/sec MV A max andrews: 100.1 cm/sec TR max P.6 mmHg MV E/A: 0.82 PA V2 max: 82.0 cm/sec Med Peak E' Andrews: 6.4 cm/sec PA V2 mean: 60.7 cm/sec E/E' med: 12.8 PA mean P.6 mmHg Lat Peak E' Andrews: 7.0 cm/sec PA pr(Accel): 5.4 mmHg E/E' lat: 11.7 E/e' average: 12.3 MV dec time: 0.25 sec SV(LVOT): 103.6 ml Reading Physician:10:29 AM
[2023-09-26] MEDS: AMIODARONE 360 MG/200 ML PIGGYBACK 33.33 MG IV (04:07)
--- NOTE | 2023-09-26 05:23 | P.HP_ITS ---
History of Present Illness History of Present Illness Date Patient Seen: 09/26/23 Time Patient Seen: 05:24 Chief complaint: afib Narrative: The pt is a 73 yo who developed rapid HR after going to a alliance party last night and having several alcoholic drinks. He reports having several episodes of A-fib with RVR last episode in April of this year. He had a RVR and chest pressure around 2300 and came to the ER for evaluation. Currently during my interview, he denied any CP pressure, SOB, cough, fevers, chills, N/V/diarrhea. He was seen in the ER and was cardioverted once which sent him into NSR for an hours then converted back to a-fib with HR of 170's. He was then given 2 boluses of amiodarone and started on a amiodarone drip and admitted to the ICU. [facility] Medical History Abscess of left arm Acute cystitis Psoriasis COPD (chronic obstructive pulmonary disease) HLD (hyperlipidemia) HTN (hypertension) Atrial fibrillation Social History household members: spouse and friend(s) Smoking Status: Current every day smoker alcohol intake: current Meds Home Medications and Allergies Home Medications Medication Instructions Recorded Confirmed Type aspirin 81 mg chewable tablet 81 mg PO DAILY ##0 04/10/12 08/13/23 History folic acid 1 mg tablet 1 mg PO DAILY ##0 04/10/12 08/13/23 History Multivitamin Senior 1 tab PO DAILY 06/07/19 08/13/23 History Turmeric Curcumin 1,000 mg PO DAILY 06/07/19 08/13/23 History atorvastatin 10 mg tablet 10 mg PO DAILY 06/07/19 08/13/23 History carvedilol 6.25 mg tablet 6.25 mg PO BID 06/07/19 08/13/23 History diltiazem HCl 120 mg capsule,24 120 mg PO DAILY 06/07/19 08/13/23 History hr,extended release ferrous sulfate 324 mg (65 mg 65 mg PO Q OTHER DAY 06/07/19 08/13/23 History iron) tablet,delayed release lisinopril 20 1 tab PO DAILY 06/07/19 08/13/23 History mg-hydrochlorothiazide 12.5 mg tablet magnesium oxide 400 mg PO DAILY 06/07/19 08/13/23 History sildenafil 100 mg tablet (Viagra) 0 mg PO PRN PRN Erectile 06/07/19 08/13/23 History Dysfunction albuterol sulfate 90 mcg/actuation 1 inh inhalation DIRECTED 09/28/19 08/13/23 History breath activated powder inhaler (ProAir RespiClick) doxycycline hyclate 100 mg capsule 100 mg PO BID #14 caps 09/28/19 08/13/23 Rx phenazopyridine 100 mg tablet 100 mg PO TID PRN pain 6 doses #7 09/21/21 08/13/23 Rx (Pyridium) tabs sulfamethoxazole 800 1 tab PO BID #14 tabs 08/10/22 08/13/23 Rx mg-trimethoprim 160 mg tablet (Bactrim DS) doxycycline hyclate 100 mg capsule 100 mg PO BID #14 caps 01/28/23 08/13/23 Rx methylprednisolone 4 mg tablets in See Rx Instructions PO PER PKG DIR 01/28/23 08/13/23 Rx a dose pack (Medrol (Estevan)) #21 ea benzonatate 100 mg capsule 100 mg PO BID PRN cough #20 caps 03/20/23 08/13/23 Rx fluticasone propionate 50 1 spray intranasal Q12H #16 grams 03/20/23 08/13/23 Rx mcg/actuation nasal spray,suspension (Flonase Allergy Relief) Allergies Allergy/AdvReac Type Severity Reaction Status Date / Time levofloxacin [From LEVAQUIN] Allergy Unknown Verified 08/13/23 10:01 doxycycline AdvReac Mild Verified 08/13/23 10:01 methylprednisolone AdvReac Mild Verified 08/13/23 10:01 Exam Vital Signs (past 8 hours): - 09/25/23 23:57 09/26/23 00:10 09/26/23 00:29 Temperature 97.7 F 99 F Pulse Rate 168 H 167 H Respiratory Rate 19 18 Blood Pressure 97/67 94/69 111/71 Pulse Oximetry 96 97 Oxygen Delivery Method Room Air Oxygen Flow Rate 09/26/23 00:34 09/26/23 00:37 09/26/23 00:45 Temperature Pulse Rate 101 H 96 H 96 H Respiratory Rate 12 16 21 Blood Pressure 124/67 109/61 Pulse Oximetry 97 96 96 Oxygen Delivery Method Room Air Oxygen Flow Rate 2 09/26/23 00:50 09/26/23 00:55 09/26/23 01:00 Temperature Pulse Rate 95 H 92 H 91 H Respiratory Rate 23 17 19 Blood Pressure 107/61 111/59 L Pulse Oximetry 96 95 95 Oxygen Delivery Method Room Air Room Air Oxygen Flow Rate 09/26/23 01:20 09/26/23 01:20 09/26/23 01:28 Temperature Pulse Rate 90 150 H Respiratory Rate 22 18 Blood Pressure 101/58 L Pulse Oximetry 95 96 Oxygen Delivery Method Oxygen Flow Rate 09/26/23 01:28 09/26/23 01:30 09/26/23 01:32 Temperature Pulse Rate 150 H 141 H Respiratory Rate 17 Blood Pressure 103/72 103/72 Pulse Oximetry 96 Oxygen Delivery Method Oxygen Flow Rate 09/26/23 01:43 09/26/23 01:43 09/26/23 01:55 Temperature Pulse Rate 116 H Respiratory Rate 22 Blood Pressure 103/55 L 98/56 L Pulse Oximetry 94 Oxygen Delivery Method Oxygen Flow Rate 09/26/23 01:55 09/26/23 02:00 09/26/23 02:00 Temperature Pulse Rate 105 H 111 H Respiratory Rate 16 23 Blood Pressure 107/73 Pulse Oximetry 95 95 Oxygen Delivery Method Oxygen Flow Rate 09/26/23 02:05 09/26/23 02:05 09/26/23 02:06 Temperature Pulse Rate 139 H Respiratory Rate 21 Blood Pressure 87/67 L 88/68 L Pulse Oximetry 95 Oxygen Delivery Method Oxygen Flow Rate 09/26/23 02:06 09/26/23 02:10 09/26/23 02:10 Temperature Pulse Rate 140 H 141 H Respiratory Rate 20 17 Blood Pressure 103/63 Pulse Oximetry 94 93 Oxygen Delivery Method Oxygen Flow Rate 09/26/23 02:16 09/26/23 02:16 09/26/23 02:20 Temperature Pulse Rate 140 H 112 H Respiratory Rate 17 20 Blood Pressure 105/65 93/73 Pulse Oximetry 94 94 Oxygen Delivery Method Room Air Oxygen Flow Rate 09/26/23 02:25 09/26/23 02:30 09/26/23 02:30 Temperature Pulse Rate 87 115 H Respiratory Rate 18 17 Blood Pressure 109/61 116/60 Pulse Oximetry 95 95 Oxygen Delivery Method Room Air Oxygen Flow Rate 09/26/23 02:35 09/26/23 02:35 09/26/23 02:40 Temperature Pulse Rate 101 H Respiratory Rate 17 Blood Pressure 113/59 L 95/56 L Pulse Oximetry 94 Oxygen Delivery Method Room Air Oxygen Flow Rate 09/26/23 02:40 09/26/23 02:45 09/26/23 02:45 Temperature Pulse Rate 106 H 105 H Respiratory Rate 16 17 Blood Pressure 108/55 L Pulse Oximetry 95 94 Oxygen Delivery Method Oxygen Flow Rate 09/26/23 02:50 09/26/23 02:50 09/26/23 02:55 Temperature Pulse Rate 110 H 106 H Respiratory Rate 17 16 Blood Pressure 110/56 L Pulse Oximetry 95 94 Oxygen Delivery Method Oxygen Flow Rate 09/26/23 02:55 09/26/23 03:00 09/26/23 03:00 Temperature Pulse Rate 104 H Respiratory Rate 22 Blood Pressure 106/59 L 88/54 L Pulse Oximetry 94 Oxygen Delivery Method Oxygen Flow Rate 09/26/23 03:05 09/26/23 03:05 09/26/23 03:10 Temperature Pulse Rate 106 H 126 H Respiratory Rate 17 24 Blood Pressure 100/65 107/64 Pulse Oximetry 95 99 Oxygen Delivery Method Room Air Oxygen Flow Rate 09/26/23 03:15 09/26/23 03:15 09/26/23 03:20 Temperature Pulse Rate 111 H Respiratory Rate 16 Blood Pressure 98/56 L 98/56 L 97/53 L Pulse Oximetry 95 Oxygen Delivery Method Oxygen Flow Rate 09/26/23 03:20 09/26/23 03:30 09/26/23 03:35 Temperature Pulse Rate 93 H 90 Respiratory Rate 17 28 H Blood Pressure 99/59 L 98/62 Pulse Oximetry 93 94 Oxygen Delivery Method Room Air Room Air Oxygen Flow Rate 09/26/23 03:35 09/26/23 03:40 09/26/23 03:45 Temperature Pulse Rate 89 90 95 H Respiratory Rate 16 19 20 Blood Pressure 98/62 107/57 L 122/58 L Pulse Oximetry 92 94 93 Oxygen Delivery Method Room Air Room Air Room Air Oxygen Flow Rate 09/26/23 03:50 09/26/23 04:47 Temperature Pulse Rate 99 H Respiratory Rate 16 Blood Pressure 104/67 Pulse Oximetry 91 Oxygen Delivery Method Room Air Room Air Oxygen Flow Rate Oxygen Delivery Method Room Air Oxygen Flow Rate 2 Const General: cooperative and healthy appearing Resp Auscultation: clear to auscultation bilaterally Cardio Rate: tachycardic Rhythm: abnormal rhythm Skin General: no rashes or lesions noted Extrem General: normal to inspection and no clubbing, cyanosis or edema Objective Labs 09/26/23 00:15 09/26/23 00:15 Labs: Laboratory Results - last 24 hr 09/26/23 09/26/23 09/26/23 00:15 01:55 02:30 WBC 7.3 RBC 4.52 Hgb 13.3 L Hct 39.1 L MCV 86.5 MCH 29.4 MCHC 34.0 RDW 14.2 Plt Count 175 Neut % (Auto) 66.6 Lymph % (Auto) 21.0 L Overton % (Auto) 10.7 Eos % (Auto) 1.0 L Baso % (Auto) 0.7 Neut # (Auto) 4900 Lymph # (Auto) 1500 [place] # (Auto) 800 Eos # (Auto) 100 Baso # (Auto) 100 PT 13.3 H INR 1.2 APTT 31 Sodium 136 L Potassium 3.5 Chloride 100 Carbon Dioxide 23 BUN 12 Creatinine 0.71 Estimated GFR > 60 BUN/Creatinine Ratio 16.9 Glucose 139 H Calcium 9.1 Magnesium 2.2 Total Bilirubin 0.7 AST 40 ALT 44 Alkaline Phosphatase 83 Total Creatine Kinase 83 Troponin I < 0.012 0.055 H NT-Pro-B Natriuret Pep 245 H Total Protein 7.3 Albumin 4.0 Globulin 3.3 Albumin/Globulin Ratio 1.2 Lipase 67 Chlamy pneumoniae PCR Not detected Adenovirus (PCR) Not detected B.parapertussis DNA PCR Not detected Coronavirus OC43 (PCR) Not detected Coronavirus HKU1 (PCR) Not detected Coronavirus 229E (PCR) Not detected SARS-CoV-2 (PCR) Not detected Coronavirus NL63 (PCR) Not detected Human Metapneumovir PCR Not detected Influenza Type A (PCR) Not detected Influenza Type B (PCR) Not detected M. pneumoniae (PCR) Not detected Parainfluenza 1 (PCR) Not detected Parainfluenza 2 (PCR) Not detected Parainfluenza 3 (PCR) Not detected Parainfluenza 4 (PCR) Not detected RSV (PCR) Not detected Entero/Rhino (PCR) Not detected Assessment & Plan Assessment and plan (1) Atrial fibrillation with rapid ventricular response: Status: Acute (2) Elevated troponin: Status: Acute Plan Will admit the pt to the ICU, on amiodarone drip, I discussed the pt's findings and labs with the ER provider, I reviewed the labs and discussed with the pt. Troponin was slightly elevated but this was draw after the cardioversion and currently he is asymptomatic. Will monitor with serial troponins, on telemetry, will need to address with cardiology in the morning, supplemently oxygen as needed, repeat labs in am, Quality VTE Deep Vein Thrombosis/Pulmonary Embolism Present on Admission: No
[2023-09-26 05:56] LABS: MRSA (Nasal) PCR Not Detected (Not Detect)
[2023-09-26] MEDS: FLUTICASONE 120 SPRAY/16 GM SPRAY.SUSP NASAL (08:25)
[2023-09-26] MEDS: carvediloL 3.125 MG TABLET 6.25 MG PO (08:26)
[2023-09-26] MEDS: hydroCHLOROthiazide 25 MG TABLET 12.5 MG PO (08:30)
[2023-09-26 08:32] LABS: Add Manual Diff / Slide Review NO; Basophils Absolute Auto 0 /uL (0-100); Basophils Percent Auto 0.2 % (0-2); Eosinophils Absolute Auto 0 /uL (0-450); Eosinophils Percent Auto 0.1 % (2-4); Hematocrit 38.8 % (41-53); Lymphocytes Absolute Auto 600 /uL (1100-4500); Lymphocytes Percent Auto 20.4 % (25-40); Mean Corpuscular HGB Conc 33.5 % (30-36); Mean Corpuscular Hemoglobin 29.1 PG (26-34); Mean Corpuscular Volume 86.9 fL (80-100); Monocytes Absolute Auto 100 /uL (0-900); Monocytes Percent Auto 1.8 % (3-14); Neutrophils Absolute Auto 2300 /uL (1500-7000); Neutrophils Percent Auto 77.5 % (50-75); Platelet Count 149 X10^3/uL (150-400); Red Blood Cell Count 4.46 X10^6/uL (4.5-5.9); Red Cell Distribution Width 13.8 % (11.6-14.8)
[2023-09-26] MEDS: predniSONE 20 MG TABLET 40 MG PO (08:36)
[2023-09-26 08:38] LABS: Alanine Aminotransferase 46 IU/L (<50); Albumin 3.9 g/dL (3.5-5.0); Albumin Globulin Ratio 1.2 (1.0-2.8); Alkaline Phosphatase 96 U/L (38-126); Aspartate Aminotransferase 38 IU/L (17-59); BUN Creatinine Ratio 17.7 (6-22); Bilirubin Total 0.6 mg/dL (0.2-1.3); Blood Urea Nitrogen 11 mg/dL (9-20); Calcium 9.4 mg/dL (8.4-10.2); Carbon Dioxide 27 mmol/L (22-32); Chloride 103 mmol/L (98-107); Estimated Glomerular Filt Rate > 60 mL/min (>60); Globulin 3.2 g/dL (1.7-4.1); Glucose 175 mg/dL (80-110); HEMOLYSIS < 15 (0-50); Potassium 4.2 mmol/L (3.4-5.1); Sodium 136 mmol/L (137-145); Total Protein 7.1 g/dL (6.3-8.2)
[2023-09-26 08:50] LABS: Troponin I 0.062 ng/mL (0.01-0.034)
[2023-09-26 09:11] LABS: Hemoglobin A1C% w Est Avg Glu 5.3 % (4.0-6.0)
[2023-09-26] MEDS: AMIODARONE 360 MG/200 ML PIGGYBACK 16.7 MG IV (09:30)
[2023-09-26] MEDS: BUDESONIDE 0.5 MG/2 ML NEB INH (09:31)
[2023-09-26] MEDS: ALBUTEROL 2.5 MG/3 ML NEB (ADULT) INH (09:31)
[2023-09-26] MEDS: AMIODARONE 200 MG TABLET 400 MG PO (10:34)
[2023-09-26 11:22] LABS: Troponin I 0.053 ng/mL (0.01-0.034)
--- NOTE | 2023-09-26 12:44 | PC.NURSE ---
Pt converted to NSR @ 0830, Amiodarone PO started at 10:30 and IV amiodarone dc'd @ 11:30. Pt HR has remained in the 60s NSR since then. Pt anxious to discharge.
--- NOTE | 2023-09-26 13:07 | P.DS_ITS ---
History of Present Illness History of Present Illness Date Patient Seen: 09/26/23 Time Patient Seen: 05:24 Chief complaint: afib Narrative: The pt is a 73 yo who developed rapid HR after going to a green party last night and having several alcoholic drinks. He reports having several episodes of A-fib with RVR last episode in April of this year. He had a RVR and chest pressure around 2300 and came to the ER for evaluation. Currently during my interview, he denied any CP pressure, SOB, cough, fevers, chills, N/V/diarrhea. He was seen in the ER and was cardioverted once which sent him into NSR for an hours then converted back to a-fib with HR of 170's. He was then given 2 boluses of amiodarone and started on a amiodarone drip and admitted to the ICU. Discharge Providers Provider Date of admission: 09/26/23 04:12 Discharge Date: 09/26/23 Primary care physician: Jud Rodriguez PA-C Discharge provider: Juan Dean DO Summary Hospital Course Discharge Diagnosis: (1) Atrial fibrillation with rapid ventricular response: Status: Acute (2) Elevated troponin: Status: Acute Hospital Course: Admitted for A-fib RVR that didn't respond to cardioversion in ED. Dilt dropped his BP so amio drip started along with eliquis. He converted to NSR overnight and was transitioned to po amio. His coreg was continued and diltiazem was stopped. His echo showed EF 55-60%, mod with mildly worsened velocity from 2.2 to 2.5, RVSP 37. Patient will follow-up with his dental mold maker Dr. Griffiths in clinic. His aspirin was stopped in place of eliquis. Exam Vital Signs (past 8 hours): - 09/26/23 05:30 09/26/23 06:00 09/26/23 06:00 Pulse Rate 127 H 129 H Respiratory Rate 17 17 Blood Pressure 110/60 Pulse Oximetry 95 87 L Oxygen Delivery Method 09/26/23 06:30 09/26/23 07:00 09/26/23 07:00 Pulse Rate 128 H 127 H Respiratory Rate 16 15 Blood Pressure Pulse Oximetry 92 94 Oxygen Delivery Method Room Air 09/26/23 07:00 09/26/23 07:30 09/26/23 08:00 Pulse Rate 127 H Respiratory Rate 16 Blood Pressure 119/77 123/73 Pulse Oximetry 94 Oxygen Delivery Method 09/26/23 08:00 09/26/23 08:26 09/26/23 08:30 Pulse Rate 128 H 73 69 Respiratory Rate 40 H 28 H Blood Pressure 133/72 Pulse Oximetry 95 94 Oxygen Delivery Method 09/26/23 09:00 09/26/23 09:00 09/26/23 09:30 Pulse Rate 66 64 Respiratory Rate 39 H 14 Blood Pressure 115/67 Pulse Oximetry 94 91 Oxygen Delivery Method 09/26/23 09:32 09/26/23 09:45 09/26/23 10:00 Pulse Rate 69 64 Respiratory Rate 20 20 Blood Pressure 117/62 Pulse Oximetry 93 Oxygen Delivery Method Room Air Room Air 09/26/23 10:00 09/26/23 10:30 09/26/23 11:00 Pulse Rate 65 60 Respiratory Rate 17 16 Blood Pressure 110/59 L Pulse Oximetry 94 90 L Oxygen Delivery Method 09/26/23 11:00 09/26/23 11:30 09/26/23 11:59 Pulse Rate 67 58 L 57 L Respiratory Rate 17 14 14 Blood Pressure Pulse Oximetry 93 91 92 Oxygen Delivery Method 09/26/23 12:00 Pulse Rate Respiratory Rate Blood Pressure 102/57 L Pulse Oximetry Oxygen Delivery Method Oxygen Delivery Method Room Air Oxygen Flow Rate 2 Const General: cooperative and healthy appearing Resp Auscultation: clear to auscultation bilaterally Cardio Rate: regular rate Rhythm: regular rhythm Skin General: no rashes or lesions noted Extrem General: normal to inspection and no clubbing, cyanosis or edema Objective Labs 09/26/23 07:57 09/26/23 07:57 Labs: Laboratory Results - last 24 hr 09/26/23 09/26/23 09/26/23 00:15 01:55 02:30 WBC 7.3 RBC 4.52 Hgb 13.3 L Hct 39.1 L MCV 86.5 MCH 29.4 MCHC 34.0 RDW 14.2 Plt Count 175 Neut % (Auto) 66.6 Lymph % (Auto) 21.0 L Morrison % (Auto) 10.7 Eos % (Auto) 1.0 L Baso % (Auto) 0.7 Neut # (Auto) 4900 Lymph # (Auto) 1500 Morrison # (Auto) 800 Eos # (Auto) 100 Baso # (Auto) 100 PT 13.3 H INR 1.2 APTT 31 Sodium 136 L Potassium 3.5 Chloride 100 Carbon Dioxide 23 BUN 12 Creatinine 0.71 Estimated GFR > 60 BUN/Creatinine Ratio 16.9 Glucose 139 H Hemoglobin A1c Calcium 9.1 Magnesium 2.2 Total Bilirubin 0.7 AST 40 ALT 44 Alkaline Phosphatase 83 Total Creatine Kinase 83 Troponin I < 0.012 0.055 H NT-Pro-B Natriuret Pep 245 H Total Protein 7.3 Albumin 4.0 Globulin 3.3 Albumin/Globulin Ratio 1.2 Lipase 67 Nasal Screen MRSA (PCR) Chlamy pneumoniae PCR Not detected Adenovirus (PCR) Not detected B.parapertussis DNA PCR Not detected Coronavirus OC43 (PCR) Not detected Coronavirus HKU1 (PCR) Not detected Coronavirus 229E (PCR) Not detected SARS-CoV-2 (PCR) Not detected Coronavirus NL63 (PCR) Not detected Human Metapneumovir PCR Not detected Influenza Type A (PCR) Not detected Influenza Type B (PCR) Not detected M. pneumoniae (PCR) Not detected Parainfluenza 1 (PCR) Not detected Parainfluenza 2 (PCR) Not detected Parainfluenza 3 (PCR) Not detected Parainfluenza 4 (PCR) Not detected RSV (PCR) Not detected Entero/Rhino (PCR) Not detected 09/26/23 09/26/23 09/26/23 04:40 07:57 10:20 WBC 3.0 L D RBC 4.46 L Hgb 13.0 L Hct 38.8 L MCV 86.9 MCH 29.1 MCHC 33.5 RDW 13.8 Plt Count 149 L Neut % (Auto) 77.5 H Lymph % (Auto) 20.4 L Morrison % (Auto) 1.8 L Eos % (Auto) 0.1 L Baso % (Auto) 0.2 Neut # (Auto) 2300 Lymph # (Auto) 600 L Morrison # (Auto) 100 Eos # (Auto) 0 Baso # (Auto) 0 PT INR APTT Sodium 136 L Potassium 4.2 Chloride 103 Carbon Dioxide 27 BUN 11 Creatinine 0.62 L Estimated GFR > 60 BUN/Creatinine Ratio 17.7 Glucose 175 H Hemoglobin A1c 5.3 Calcium 9.4 Magnesium Total Bilirubin 0.6 AST 38 ALT 46 Alkaline Phosphatase 96 Total Creatine Kinase Troponin I 0.062 H 0.053 H NT-Pro-B Natriuret Pep Total Protein 7.1 Albumin 3.9 Globulin 3.2 Albumin/Globulin Ratio 1.2 Lipase Nasal Screen MRSA (PCR) Not detected Chlamy pneumoniae PCR Adenovirus (PCR) B.parapertussis DNA PCR Coronavirus OC43 (PCR) Coronavirus HKU1 (PCR) Coronavirus 229E (PCR) SARS-CoV-2 (PCR) Coronavirus NL63 (PCR) Human Metapneumovir PCR Influenza Type A (PCR) Influenza Type B (PCR) M. pneumoniae (PCR) Parainfluenza 1 (PCR) Parainfluenza 2 (PCR) Parainfluenza 3 (PCR) Parainfluenza 4 (PCR) RSV (PCR) Entero/Rhino (PCR) PFSH Medical History Abscess of left arm Acute cystitis Psoriasis COPD (chronic obstructive pulmonary disease) HLD (hyperlipidemia) HTN (hypertension) Atrial fibrillation Social History household members: spouse and friend(s) Smoking Status: Current every day smoker alcohol intake: current Discharge Plan Discharge Plan Patient Disposition: Home Provider Discharge Comment: You were admitted for difficult to control atrial fibrillation. We were able to convert your heart to normal rhythm using a drug called amiodarone. You will now take this as a pill to replace your diltiazem until you can follow-up with your dental mold maker. I've also put you on eliquis due to your stroke risk being high enough to warrant taking it. This will replace your aspirin. Dr. Daen Discharge orders & Medications Prescriptions: New amiodarone 200 mg Tablet See Rx Instructions .ROUTE .COMPLEX Qty: 60 0RF Rx Instructions: take 2 tabs (400mg) twice daily for 1 week, then take 1 tab (200mg) twice daily for 1 week, then take 1 tab once daily Eliquis 5 mg Tablet 5 mg PO BID Qty: 60 0RF Continued fluticasone propionate [Flonase Allergy Relief] 50 mcg/actuation spray,suspension 1 spray intranasal Q12H Qty: 16 0RF Rx Instructions: administer into each nostril doxycycline hyclate 100 mg capsule 100 mg PO BID Qty: 14 0RF folic acid 1 MG tablet 1 mg PO DAILY Qty: 0 carvedilol 6.25 mg tablet 6.25 mg PO BID atorvastatin 10 mg tablet 10 mg PO DAILY lisinopril-hydrochlorothiazide 20-12.5 mg tablet 1 tab PO DAILY sildenafil [Viagra] 100 mg tablet 0 mg PO PRN PRN (Reason: Erectile Dysfunction) ferrous sulfate 324 mg (65 mg iron) Tablet,Delayed Release (Dr/Ec) 65 mg PO Q OTHER DAY magnesium oxide 400 mg magnesium Tablet 400 mg PO DAILY Multivitamin Senior 1 tab PO DAILY Turmeric Curcumin 1,000 mg 1,000 mg PO DAILY ProAir RespiClick 90 mcg/actuation aerosol powdr breath activated 1 inh INHALATION DIRECTED Discontinued sulfamethoxazole-trimethoprim [Bactrim DS] 800-160 mg tablet 1 tab PO BID Qty: 14 0RF methylprednisolone [Medrol (Estevan)] 4 mg tablets,dose pack See Rx Instructions PO PER PKG DIR Qty: 21 0RF Rx Instructions: PO PER PKG DIR aspirin 81 mg Tablet,Chewable 81 mg PO DAILY Qty: 0 diltiazem HCl 120 mg capsule,extended release 24 hr 120 mg PO DAILY Follow up/Referrals: Jimmy Griffiths MD [Physician] - 2 Weeks Jud Rodriguez PA-C [Primary Care Provider] - 2 Weeks Visit Report/Discharge Packet Stand Alone Forms: Patient Portal/API, Stroke Signs & Symptoms Discharge Data Primary Care Provider: Jud Rodriguez Quality VTE Deep Vein Thrombosis/Pulmonary Embolism Present on Admission: No
--- NOTE | 2023-09-26 13:44 | CM.DANOTE ---
Brief DCP Assessment Note Pt is a 73yo M here following rapid HR. Pt has a PMH of A-fib with RVR. PCP Jud Rodriguez Payer Medicare and for life [employer] reviewed EMR. Pt lives in [place], lives with friend Ene? Per provider, likely here until tomorrow to wean off amio drip/pending Echo. Per RN note, pt anxious to discharge. Pt leaving as this author went to talk to him for dc assessment. Plan: home with friend to transport. No CM needs identified at this time. CM team will continue to follow as needed. 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 No History Provided By Medical Record Prior Living Arrangements House Household Members spouse,friend(s) Independent with ADL's Yes Is patient alert and oriented? Yes Barriers to Discharge No Discharge Plan Home Transportation Arrangement Friend Whiteboard Updated in Patient Room with No name and ext. # of Vacuum Metalizer Operator Comment pt left prior to being seen by this author Review Status In Process Next Review Type Continued Stay Review
--- NOTE | 2023-09-26 13:44 | PC.NURSE ---
Pt discharge instructions given including signs and symptoms of stroke and importance of taking medication daily as directed. Instructed pt on precautions to take while on blood thinners. Pt expressed understanding. Discharged per WC
== END 2023-09-26 13:45 | disposition home or self-care (01) | DRG 309 ==
LOC: ED 09-26 00:16 → AC 09-26 04:13 → ICU 09-26 04:35
PROVIDERS: Student in an Organized Health Care Education/Training Program; Admitting Provider Internal Medicine; Emergency Provider Emergency Medicine; PCP Physician Assistant Medical; Referring Provider Emergency Medicine; Visit Provider Internal Medicine
DX: I48.91 Unspecified atrial fibrillation (principal); I24.89 Other forms of acute ischemic heart disease; R79.89 Other specified abnormal findings of blood chemistry; I10 Essential (primary) hypertension; J44.9 Chronic obstructive pulmonary disease, unspecified; E78.5 Hyperlipidemia, unspecified; F17.290 Nicotine dependence, other tobacco product, uncomplicated
CPT/HCPCS: 36415; 71045; 80053; 82550; 83036; 83690; 83735; 83880; 84484; 85025; 85610; 85730; 87633; 87797; 92960; 93005; 93010; 93306; 94640; 94762; 96365; 96366; 96375; 96376; 99285; 99291; C8929; J0282; J2704; J2930; J7613; Q9957

== ENCOUNTER → 2024-10-25 07:40 | Outpatient (CLI) | payer MEDICARE, OTHER, SELFPAY ==
[2023-09-26 04:47] VITALS: BMI 36.9
== END ==
PROVIDERS: PCP Physician Assistant Medical; Referring Provider Nurse Practitioner Family; Visit Provider Nurse Practitioner Family
DX: R30.0 Dysuria (principal)
CPT/HCPCS: 87077; 87086; 87186

== ENCOUNTER → 2024-11-19 07:50 | Outpatient (CLI) | payer MEDICARE, OTHER, SELFPAY ==
[2023-09-26 04:47] VITALS: BMI 36.9
== END ==
PROVIDERS: PCP Physician Assistant Medical; Visit Provider Nurse Practitioner Family
DX: R30.0 Dysuria (principal)
CPT/HCPCS: 87077; 87086; 87186

== ENCOUNTER 2025-07-11 13:10 | Emergency (ER) | payer MEDICARE, OTHER, SELFPAY ==
[2023-09-26 04:47] VITALS: BMI 36.9
[2025-07-11] VITALS (25 sets, daily range): BP systolic 93–142; BP diastolic 56–95; PULSE 65–148; RESP 11–27; TEMP 36.5; O2SAT 91–98; BMI 31.7
--- NOTE | 2025-07-11 13:22 | DI.RAD.S_ITS ---
PROCEDURE: XR CHEST 1V INDICATIONS: Chest Pain TECHNIQUE: One view of the chest was acquired. COMPARISON: [facility], CR, XR CHEST 1V, 09/26/2023, 0:02. FINDINGS: Surgical changes and devices: None. Lungs and pleura: Lungs are clear. No pleural effusions or pneumothorax. Mediastinum: Mediastinal contours appear normal. Heart size is normal. Bones and chest wall: No suspicious bony lesions. Overlying soft tissues appear unremarkable. IMPRESSION: No acute cardiopulmonary abnormality is seen. Dictated by: Meng Camargo M.D. on 07/11/2025 at 14:43 Approved by: Meng Camargo M.D. on 07/11/2025 at 14:43
--- NOTE | 2025-07-11 13:26 | EKG_ITS ---
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
--- NOTE | 2025-07-11 13:44 | ED.ARRPALP ---
HPI - Arrhythmia/Palpitations General Chief Complaint: Arrhythmia/Palpitations Stated Complaint: Afib, since 10am Time Seen by Provider: 07/11/25 13:33 Source: patient Mode of arrival: Ambulatory History of Present Illness HPI narrative: This is a 75-year-old man with a history of atrial fibrillation and coronary disease anticoagulated on Eliquis presenting with atrial fibrillation. Onset was about 4 hours prior to being seen. Did have some chest tightness initially. No longer having chest tightness no shortness of breath no nausea or diaphoresis and no fevers. He has been cardioverted numerous times in the past according to report. He has been taking his Eliquis took it this morning he has not missed any doses recently. Patient is interested in having cardioversion again today. Echocardiogram from September 2023 reviewed, moderate aortic stenosis normal LV function Related Data Home Medications ?Medication ?Instructions ?Recorded ?Confirmed Multivitamin Senior 1 tab PO DAILY 06/07/19 11/19/24 Turmeric Curcumin 1,000 mg PO DAILY 06/07/19 11/19/24 atorvastatin 10 mg tablet 10 mg PO DAILY 06/07/19 11/19/24 carvedilol 6.25 mg tablet 6.25 mg PO BID 06/07/19 11/19/24 ferrous sulfate 324 mg (65 mg 65 mg PO Q OTHER DAY 06/07/19 11/19/24 iron) tablet,delayed release lisinopril 20 1 tab PO DAILY 06/07/19 11/19/24 mg-hydrochlorothiazide 12.5 mg tablet magnesium oxide 400 mg PO DAILY 06/07/19 11/19/24 sildenafil 100 mg tablet (Viagra) 0 mg PO PRN PRN Erectile 06/07/19 11/19/24 Dysfunction albuterol sulfate 90 mcg/actuation 1 inh inhalation DIRECTED 09/28/19 11/19/24 breath activated powder inhaler (ProAir RespiClick) atorvastatin 20 mg tablet mg PO DAILY 10/25/24 11/19/24 clopidogrel 75 mg tablet mg PO DAILY 10/25/24 11/19/24 diltiazem HCl 120 mg capsule,24 mg PO DAILY 10/25/24 11/19/24 hr,extended release nitroglycerin 0.4 mg sublingual mg sublingual 10/25/24 11/19/24 tablet Previous Rx's ?Medication ?Instructions ?Recorded fluticasone propionate 50 1 spray intranasal Q12H #16 grams 03/20/23 mcg/actuation nasal spray,suspension (Flonase Allergy Relief) amiodarone 200 mg tablet See Rx Instructions .Route 09/26/23 .COMPLEX #60 tabs apixaban 5 mg tablet (Eliquis) 5 mg PO BID #60 tabs 09/26/23 cefdinir 300 mg capsule 300 mg PO BID #14 caps 11/19/24 Allergies Allergy/AdvReac Type Severity Reaction Status Date / Time levofloxacin (From LEVAQUIN) Allergy Unknown Verified 07/11/25 13:14 doxycycline AdvReac Mild Verified 07/11/25 13:14 methylprednisolone AdvReac Mild Verified 07/11/25 13:14 Patient History Medical History Abscess of left arm Acute cystitis Psoriasis COPD (chronic obstructive pulmonary disease) HLD (hyperlipidemia) HTN (hypertension) Atrial fibrillation Social History household members: spouse and friend(s) alcohol intake: current tobacco type: cigars alcohol intake frequency: holidays/special occasions only Alcohol type: beer Exam Narrative Exam Narrative: Patient is alert and appears to be in no distress Neck is supple without jugular venous distention Lungs are clear with equal breath Cardiac irregularly irregular no murmur rub or gallop Abdomen is benign Alert and oriented moving all 4 extremities spontaneously and equally with appropriate mood Initial Vital Signs Initial Vital Signs: Vital Signs Temperature 97.7 F 07/11/25 13:14 Pulse Rate 140 H 07/11/25 13:14 Respiratory Rate 20 07/11/25 13:14 Blood Pressure 139/95 H 07/11/25 13:14 Pulse Oximetry 97 07/11/25 13:14 Oxygen Delivery Method Room Air 07/11/25 13:14 Procedures Cardioversion Time of Cardioversion: 14:40 Consent Signed: Yes Indication: Atrial fibrillation with rapid ventricular response Stability: Stable Number of attempts (shocks): 1 Joules used: 150 Cardiac rhythm post-cardioversion: Normal sinus rhythm Procedural Sedation Time of procedure: 14:35 Consent signed: Yes Time out performed: Yes Indication: cardioversion Presedation Evaluation: Occurred immediately prior to the procedure. ASA Class: II Mallampati Airway Classification: Class II Time of Last PO Intake: 10:00 Preparation: color television console monitor applied, pulse oximeter, capnometry used, suction/airway equipment at bedside and IV secured IV Etomidate dose (mg): 9.8 Intraservice time/total sedation time (min): 15 ED Sedation Level: Moderate (Concious) Patient Tolerated Procedure: Well Complications: none Course Orders Ordered: ED Orders 07/11/25 13:22 XR chest 1V Stat EKG-12 Lead Stat 07/11/25 13:40 Complete Blood Count AUTO DIFF Stat Comprehensive Metabolic Panel Stat Lipase Stat Magnesium Stat NT-proBNP (BNP-Adult 18+) Stat PTT Partial Thromboplastin Saad Stat Prothrombin Time INR Stat Troponin & CK Cardiac Panel Stat 07/11/25 14:45 EKG-12 Lead Stat Discontinued Medications Aspirin (Aspirin 81 Mg Chew Tab) 324 mg PO NOW ONE Stop: 07/11/25 13:23 Last Admin: 07/11/25 13:41 Dose: Not Given Documented By: EDWIN Etomidate (Etomidate 2 Mg/Ml 10 Ml Vial) 9.8 mg 0.1 mg/kg (9.8 mg) IV NOW ONE Stop: 07/11/25 13:50 Last Admin: 07/11/25 14:41 Dose: 9.8 mg Documented By: EDWIN Vital Signs Vital signs: Vital Signs - 8 hr 07/11/25 13:14 07/11/25 13:53 07/11/25 13:55 Temperature 97.7 F Pulse Rate 140 H 143 H 146 H Respiratory Rate 20 14 16 Blood Pressure 139/95 H Pulse Oximetry 97 97 96 Oxygen Delivery Method Room Air 07/11/25 14:00 07/11/25 14:05 07/11/25 14:10 Temperature Pulse Rate 140 H 146 H 140 H Respiratory Rate 14 16 17 Blood Pressure Pulse Oximetry 97 96 96 Oxygen Delivery Method 07/11/25 14:11 07/11/25 14:11 07/11/25 14:15 Temperature Pulse Rate 145 H 146 H Respiratory Rate 27 H 15 Blood Pressure 117/72 Pulse Oximetry 96 96 Oxygen Delivery Method 07/11/25 14:20 07/11/25 14:25 07/11/25 14:30 Temperature Pulse Rate 146 H 148 H 148 H Respiratory Rate 13 11 L 14 Blood Pressure Pulse Oximetry 96 97 98 Oxygen Delivery Method 07/11/25 14:30 07/11/25 14:35 07/11/25 14:40 Temperature Pulse Rate 148 H 148 H Respiratory Rate 24 16 Blood Pressure 93/70 Pulse Oximetry 98 98 Oxygen Delivery Method 07/11/25 14:41 07/11/25 14:41 07/11/25 14:45 Temperature Pulse Rate 147 H 68 Respiratory Rate 15 21 Blood Pressure 142/76 H Pulse Oximetry 98 97 Oxygen Delivery Method 07/11/25 14:45 07/11/25 14:50 07/11/25 14:51 Temperature Pulse Rate 66 67 Respiratory Rate 21 18 Blood Pressure 140/74 Pulse Oximetry 98 97 Oxygen Delivery Method 07/11/25 14:51 07/11/25 14:55 07/11/25 14:55 Temperature Pulse Rate 66 Respiratory Rate 17 Blood Pressure 138/81 134/79 Pulse Oximetry 96 Oxygen Delivery Method 07/11/25 15:00 07/11/25 15:01 07/11/25 15:01 Temperature Pulse Rate 70 67 Respiratory Rate 19 25 H Blood Pressure 131/67 Pulse Oximetry 96 96 Oxygen Delivery Method 07/11/25 15:05 07/11/25 15:05 07/11/25 15:10 Temperature Pulse Rate 66 66 Respiratory Rate 17 18 Blood Pressure 138/71 Pulse Oximetry 97 96 Oxygen Delivery Method 07/11/25 15:11 07/11/25 15:11 Temperature Pulse Rate 67 Respiratory Rate 18 16 Blood Pressure 122/56 L Pulse Oximetry 97 Oxygen Delivery Method MDM - Arrhythmia/Palpitations Lab Data Lab results narrative: Elevated proBNP however the patient does not appear to be in acute heart failure. Troponin is normal, CBC with diff and CMP are reassuring 07/11/25 13:40 07/11/25 13:40 Labs: Lab Results 07/11/25 Range/Units 13:40 WBC 3.9 L (4.5-11.0) X10^3/uL RBC 4.57 (4.5-5.9) X10^6/uL Hgb 13.5 (13.5-17.5) g/dL Hct 39.6 L (41-53) % MCV 86.7 (80-100) fL MCH 29.6 (26-34) PG MCHC 34.1 (30-36) % RDW 15.3 H (11.6-14.8) % Plt Count 125 L (150-400) X10^3/uL Neut % (Auto) 49.6 L (50-75) % Lymph % (Auto) 37.0 (25-40) % [place] % (Auto) 8.5 (3-14) % Eos % (Auto) 3.3 (2-4) % Baso % (Auto) 1.6 (0-2) % Neut # (Auto) 1900 (4496-1971) /uL Lymph # (Auto) 1400 (8464-1817) /uL [place] # (Auto) 300 (0-900) /uL Eos # (Auto) 100 (0-450) /uL Baso # (Auto) 100 (0-100) /uL PT 14.5 H (9.4-12.5) SECONDS INR 1.3 (0.9-1.3) APTT 36 (25.1-36.5) SECONDS Sodium 140 (137-145) mmol/L Potassium 3.9 (3.4-5.1) mmol/L Chloride 108 H (98-107) mmol/L Carbon Dioxide 25 (22-32) mmol/L BUN 6 L (9-20) mg/dL Creatinine 0.69 (0.66-1.25) mg/dL Estimated GFR > 60 (>60) mL/min BUN/Creatinine Ratio 8.7 (6-22) Glucose 106 H (70-99) mg/dL Calcium 8.6 (8.4-10.2) mg/dL Magnesium 2.2 (1.6-2.3) mg/dL Total Bilirubin 0.8 (0.2-1.3) mg/dL AST 44 (17-59) IU/L ALT 40 (<50) IU/L Alkaline Phosphatase 111 (38-126) U/L Total Creatine Kinase 48 L (55-170) U/L Troponin I < 0.012 (0.01-0.034) ng/mL NT-Pro-B Natriuret Pep 1300 H (<125) pg/mL Total Protein 7.0 (6.3-8.2) g/dL Albumin 4.3 (3.5-5.0) g/dL Globulin 2.7 (1.7-4.1) g/dL Albumin/Globulin Ratio 1.6 (1.0-2.8) Lipase 53 (23-300) U/L Imaging Data Chest x-ray: My Impression: Independently reviewed chest x-ray, no acute findings ECG Data Attestation: I personally reviewed and interpreted this ECG as follows: (Atrial fibrillation with rapid ventricular response rate of 140. Old anterior infarct, no acute ST-elevation. ) Interpretation: Repeat EKG post cardioversion shows sinus rhythm with possible old anteroseptal infarct. This is similar to October 04, 2023 [facility] Narrative Medical decision making narrative: 75-year-old male with a history of atrial fibrillation presenting with atrial fibrillation with rapid ventricular response. History of coronary disease is noted he did have some chest tightness earlier however hours later his troponin is normal he is not having chest tightness he is not having EKG changes. Patient was cardioverted uneventfully, he will continue on his Eliquis and follow up with his home supervisor. Discharge Plan Departure Patient Disposition: Home Clinical Impression: Atrial fibrillation Qualifiers: Atrial fibrillation type: paroxysmal Qualified Code(s): I48.0 - Paroxysmal atrial fibrillation Activity Restrictions/Additional Instructions: Do not drive tonight. Continue previous home medications. Follow up soon with your regular home supervisor. Return to the emergency department if having chest pain shortness of breath or recurrent atrial fibrillation Prescriptions: No Action fluticasone propionate [Flonase Allergy Relief] 50 mcg/actuation spray,suspension 1 spray intranasal Q12H Qty: 16 0RF Rx Instructions: administer into each nostril diltiazem HCl 120 mg capsule,extended release 24 hr PO DAILY nitroglycerin 0.4 mg tablet, sublingual sublingual atorvastatin 20 mg tablet PO DAILY clopidogrel 75 mg tablet PO DAILY cefdinir 300 mg capsule 300 mg PO BID Qty: 14 0RF carvedilol 6.25 mg tablet 6.25 mg PO BID atorvastatin 10 mg tablet 10 mg PO DAILY lisinopril-hydrochlorothiazide 20-12.5 mg tablet 1 tab PO DAILY sildenafil [Viagra] 100 mg tablet 0 mg PO PRN PRN (Reason: Erectile Dysfunction) ferrous sulfate 324 mg (65 mg iron) Tablet,Delayed Release (Dr/Ec) 65 mg PO Q OTHER DAY magnesium oxide 400 mg magnesium Tablet 400 mg PO DAILY Multivitamin Senior 1 tab PO DAILY Turmeric Curcumin 1,000 mg 1,000 mg PO DAILY ProAir RespiClick 90 mcg/actuation aerosol powdr breath activated 1 inh INHALATION DIRECTED amiodarone 200 mg Tablet See Rx Instructions .ROUTE .COMPLEX Qty: 60 0RF Rx Instructions: take 2 tabs (400mg) twice daily for 1 week, then take 1 tab (200mg) twice daily for 1 week, then take 1 tab once daily Eliquis 5 mg Tablet 5 mg PO BID Qty: 60 0RF Referrals: Jud Rodriguez PA-C [Primary Care Provider, Family Practice] Stand Alone Forms: Patient Portal/API
[2025-07-11 13:47] LABS: Add Manual Diff / Slide Review NO; Hematocrit 39.6 % (41-53); Hemoglobin 13.5 g/dL (13.5-17.5); Lymphocytes Absolute Auto 1400 /uL (1100-4500); Mean Corpuscular HGB Conc 34.1 % (30-36); Mean Corpuscular Hemoglobin 29.6 PG (26-34); Mean Corpuscular Volume 86.7 fL (80-100); Platelet Count 125 X10^3/uL (150-400)
[2025-07-11 13:56] LABS: INR 1.3 (0.9-1.3); Prothrombin Time 14.5 SECONDS (9.4-12.5)
[2025-07-11 13:59] LABS: PTT Partial Thromboplastin Tim 36 SECONDS (25.1-36.5)
[2025-07-11 14:00] LABS: Alanine Aminotransferase 40 IU/L (<50); Albumin 4.3 g/dL (3.5-5.0); Albumin Globulin Ratio 1.6 (1.0-2.8); Alkaline Phosphatase 111 U/L (38-126); Blood Urea Nitrogen 6 mg/dL (9-20); Calcium 8.6 mg/dL (8.4-10.2); Carbon Dioxide 25 mmol/L (22-32); Chloride 108 mmol/L (98-107); Creatine Kinase 48 U/L (55-170); Estimated Glomerular Filt Rate > 60 mL/min (>60); Globulin 2.7 g/dL (1.7-4.1); Glucose 106 mg/dL (70-99); HEMOLYSIS < 15 (0-50); Lipase 53 U/L (23-300); Magnesium 2.2 mg/dL (1.6-2.3); Potassium 3.9 mmol/L (3.4-5.1); Sodium 140 mmol/L (137-145); Total Protein 7.0 g/dL (6.3-8.2)
[2025-07-11 14:11] LABS: NT-proBNP (BNP-Adult 18+) 1300 pg/mL (<125); Troponin I < 0.012 ng/mL (0.01-0.034)
[2025-07-11] MEDS: ETOMIDATE 2 MG/ML 10 ML VIAL 9.8 MG IV (14:41)
--- NOTE | 2025-07-11 14:45 | EKG_ITS ---
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
== END 2025-07-11 15:39 | disposition home or self-care (01) ==
PROVIDERS: Emergency Provider Emergency Medicine; PCP Physician Assistant Medical
DX: I48.0 Paroxysmal atrial fibrillation (principal); Z79.01 Long term (current) use of anticoagulants; Z86.79 Personal history of other diseases of the circulatory system
CPT/HCPCS: 36415; 71045; 80053; 82550; 83690; 83735; 83880; 84484; 85025; 85610; 85730; 92960; 93005; 93010; 99152; 99285

== ENCOUNTER 2025-07-26 13:31 | Emergency (ER) | payer MEDICARE, OTHER, SELFPAY ==
[2023-09-26 04:47] VITALS: BMI 36.9
[2025-07-26] VITALS (18 sets, daily range): BP systolic 108–157; BP diastolic 60–98; PULSE 77–157; RESP 13–26; TEMP 36.9; O2SAT 91–100; BMI 36.9
--- NOTE | 2025-07-26 13:35 | EKG_ITS ---
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
--- NOTE | 2025-07-26 13:35 | DI.RAD.S_ITS ---
PROCEDURE: XR CHEST 1V INDICATIONS: Chest Pain TECHNIQUE: One view of the chest was acquired. COMPARISON: [facility], CR, XR CHEST 1V, 07/11/2025, 13:41. FINDINGS: Surgical changes and devices: None. Lungs and pleura: Lungs are clear. No pleural effusions or pneumothorax. Mediastinum: Mediastinal contours appear normal. Heart size is normal. Bones and chest wall: No suspicious bony lesions. Overlying soft tissues appear unremarkable. IMPRESSION: No acute cardiopulmonary pathology. Dictated by: Kip Albert M.D. on 07/26/2025 at 13:52 Approved by: Kip Albert M.D. on 07/26/2025 at 13:53
[2025-07-26 13:57] LABS: Add Manual Diff / Slide Review NO; Hematocrit 38.5 % (41-53); Hemoglobin 13.2 g/dL (13.5-17.5); Lymphocytes Absolute Auto 1100 /uL (1100-4500); Mean Corpuscular HGB Conc 34.2 % (30-36); Mean Corpuscular Hemoglobin 29.4 PG (26-34); Mean Corpuscular Volume 86.0 fL (80-100); Platelet Count 136 X10^3/uL (150-400)
[2025-07-26 14:04] LABS: INR 1.2 (0.9-1.3); Prothrombin Time 13.7 SECONDS (9.4-12.5)
[2025-07-26] MEDS: APIXABAN 5 MG TABLET PO (14:05)
[2025-07-26 14:07] LABS: PTT Partial Thromboplastin Tim 38 SECONDS (25.1-36.5)
--- NOTE | 2025-07-26 14:07 | ED.ARRPALP ---
HPI - Arrhythmia/Palpitations General Chief Complaint: Arrhythmia/Palpitations Stated Complaint: in AFIB Time Seen by Provider: 07/26/25 13:42 Source: patient Mode of arrival: Ambulatory History of Present Illness HPI narrative: 75-year-old man with a history of atrial fibrillation seen by me on cardioverted last month. Here today with AFib for approximately 1 hour. Has a little chest tightness, no shortness of breath little lightheaded. Has continued his previous home medications, did miss his morning dose of Eliquis today. He has had numerous episodes of AFib in the past. Related Data Home Medications ?Medication ?Instructions ?Recorded ?Confirmed Multivitamin Senior 1 tab PO DAILY 06/07/19 11/19/24 Turmeric Curcumin 1,000 mg PO DAILY 06/07/19 11/19/24 atorvastatin 10 mg tablet 10 mg PO DAILY 06/07/19 11/19/24 carvedilol 6.25 mg tablet 6.25 mg PO BID 06/07/19 11/19/24 ferrous sulfate 324 mg (65 mg 65 mg PO Q OTHER DAY 06/07/19 11/19/24 iron) tablet,delayed release lisinopril 20 1 tab PO DAILY 06/07/19 11/19/24 mg-hydrochlorothiazide 12.5 mg tablet magnesium oxide 400 mg PO DAILY 06/07/19 11/19/24 sildenafil 100 mg tablet (Viagra) 0 mg PO PRN PRN Erectile 06/07/19 11/19/24 Dysfunction albuterol sulfate 90 mcg/actuation 1 inh inhalation DIRECTED 09/28/19 11/19/24 breath activated powder inhaler (ProAir RespiClick) atorvastatin 20 mg tablet mg PO DAILY 10/25/24 11/19/24 clopidogrel 75 mg tablet mg PO DAILY 10/25/24 11/19/24 diltiazem HCl 120 mg capsule,24 mg PO DAILY 10/25/24 11/19/24 hr,extended release nitroglycerin 0.4 mg sublingual mg sublingual 10/25/24 11/19/24 tablet Previous Rx's ?Medication ?Instructions ?Recorded fluticasone propionate 50 1 spray intranasal Q12H #16 grams 03/20/23 mcg/actuation nasal spray,suspension (Flonase Allergy Relief) amiodarone 200 mg tablet See Rx Instructions .Route 09/26/23 .COMPLEX #60 tabs apixaban 5 mg tablet (Eliquis) 5 mg PO BID #60 tabs 09/26/23 cefdinir 300 mg capsule 300 mg PO BID #14 caps 11/19/24 Allergies Allergy/AdvReac Type Severity Reaction Status Date / Time levofloxacin (From LEVAQUIN) Allergy Unknown Verified 07/26/25 13:38 doxycycline AdvReac Mild Verified 07/26/25 13:38 methylprednisolone AdvReac Mild Verified 07/26/25 13:38 Patient History Medical History Abscess of left arm Acute cystitis Psoriasis COPD (chronic obstructive pulmonary disease) HLD (hyperlipidemia) HTN (hypertension) Atrial fibrillation Social History household members: spouse and friend(s) Smoking Status: Unknown if ever smoked alcohol intake: current Smoking Status: Unknown if ever smoked tobacco type: cigars alcohol intake frequency: holidays/special occasions only Alcohol type: beer Exam Narrative Exam Narrative: Vital signs reviewed, he is tachycardic. Otherwise appears to be in no distress Alert and fully oriented skin is warm and dry Neck is supple Lungs are clear Irregularly irregular tachycardic without murmur rub Moving all 4 extremities Initial Vital Signs Initial Vital Signs: Vital Signs Temperature 98.5 F 07/26/25 13:32 Pulse Rate 157 H 07/26/25 13:32 Respiratory Rate 17 07/26/25 13:32 Blood Pressure 140/98 H 07/26/25 13:32 Pulse Oximetry 97 07/26/25 13:32 Oxygen Delivery Method Room Air 07/26/25 13:32 Procedures Cardioversion Time of Cardioversion: 15:30 Consent Signed: Yes Indication: Atrial fibrillation with rapid ventricular response Stability: Stable Number of attempts (shocks): 1 Joules used: 200 Cardiac rhythm post-cardioversion: Normal sinus rhythm Additional Comments: Synchronized Procedural Sedation Time of procedure: 15:20 Consent signed: Yes Time out performed: Yes Indication: cardioversion ASA Class: II Mallampati Airway Classification: Class II Time of Last PO Intake: 12:00 IV Etomidate dose (mg): 10 ED Sedation Level: Moderate (Concious) Patient Tolerated Procedure: No complications Complications: none Interventions: Assist by BVM Course Orders Ordered: ED Orders 07/26/25 13:35 XR chest 1V Stat EKG-12 Lead Stat 07/26/25 13:43 Complete Blood Count AUTO DIFF Stat Comprehensive Metabolic Panel Stat Lipase Stat Magnesium Stat NT-proBNP (BNP-Adult 18+) Stat PTT Partial Thromboplastin Saad Stat Prothrombin Time INR Stat Troponin & CK Cardiac Panel Stat Discontinued Medications Apixaban (Apixaban 5 Mg Tablet) 5 mg PO NOW ONE Stop: 07/26/25 13:53 Last Admin: 07/26/25 14:05 Dose: 5 mg Documented By: C Aspirin (Aspirin 81 Mg Chew Tab) 324 mg PO NOW ONE Stop: 07/26/25 13:36 Last Admin: 07/26/25 13:38 Dose: Not Given Documented By: [facility] Diltiazem HCl (Diltiazem 25 Mg/5 Ml Sdv) 20 mg IV NOW ONE Stop: 07/26/25 13:55 Last Admin: 07/26/25 14:06 Dose: Not Given Documented By: SANDRITA Etomidate (Etomidate 2 Mg/Ml 10 Ml Vial) 11.3 mg 0.1 mg/kg (11.3 mg) IV NOW ONE Stop: 07/26/25 15:12 Last Admin: 07/26/25 15:28 Dose: 11.3 mg Documented By: [facility] Consultations Consultation #1: Discussed briefly with Dr. Hood from Cardiology, agree that it is appropriate to proceed with cardioversion with 1 hour of atrial fibrillation and patient having been on Eliquis up until this morning. We will continue Eliquis Vital Signs Vital signs: Vital Signs - 8 hr 07/26/25 13:32 07/26/25 13:35 07/26/25 13:35 Temperature 98.5 F Pulse Rate 157 H 155 H Respiratory Rate 17 Blood Pressure 140/98 H 140/98 H Pulse Oximetry 97 100 Oxygen Delivery Method Room Air 07/26/25 14:00 07/26/25 14:00 07/26/25 14:10 Temperature Pulse Rate 142 H Respiratory Rate 15 Blood Pressure 125/90 123/88 Pulse Oximetry 93 Oxygen Delivery Method 07/26/25 14:10 07/26/25 14:30 07/26/25 14:30 Temperature Pulse Rate 148 H 147 H Respiratory Rate 19 13 Blood Pressure 118/84 Pulse Oximetry 97 96 Oxygen Delivery Method Room Air 07/26/25 15:00 07/26/25 15:00 07/26/25 15:14 Temperature Pulse Rate 147 H Respiratory Rate 15 Blood Pressure 108/70 109/79 Pulse Oximetry 94 Oxygen Delivery Method 07/26/25 15:14 07/26/25 15:15 07/26/25 15:15 Temperature Pulse Rate 149 H 146 H Respiratory Rate 15 17 Blood Pressure 113/88 Pulse Oximetry 95 96 Oxygen Delivery Method 07/26/25 15:20 07/26/25 15:20 07/26/25 15:25 Temperature Pulse Rate 147 H Respiratory Rate 17 Blood Pressure 116/90 115/87 Pulse Oximetry 95 Oxygen Delivery Method 07/26/25 15:25 07/26/25 15:30 07/26/25 15:31 Temperature Pulse Rate 149 H 83 81 Respiratory Rate 16 15 20 Blood Pressure Pulse Oximetry 97 91 99 Oxygen Delivery Method 07/26/25 15:31 07/26/25 15:35 07/26/25 15:35 Temperature Pulse Rate 80 Respiratory Rate 20 Blood Pressure 148/87 H 157/83 H Pulse Oximetry 96 Oxygen Delivery Method 07/26/25 15:41 Temperature Pulse Rate 79 Respiratory Rate 16 Blood Pressure Pulse Oximetry Oxygen Delivery Method MDM - Arrhythmia/Palpitations Lab Data Lab results narrative: Labs reviewed, troponin normal proBNP mildly elevated patient does not appear to be in acute heart failure 07/26/25 13:43 07/26/25 13:43 Labs: Lab Results 07/26/25 Range/Units 13:43 WBC 3.4 L (4.5-11.0) X10^3/uL RBC 4.48 L (4.5-5.9) X10^6/uL Hgb 13.2 L (13.5-17.5) g/dL Hct 38.5 L (41-53) % MCV 86.0 (80-100) fL MCH 29.4 (26-34) PG MCHC 34.2 (30-36) % RDW 14.7 (11.6-14.8) % Plt Count 136 L (150-400) X10^3/uL Neut % (Auto) 52.2 (50-75) % Lymph % (Auto) 33.0 (25-40) % [place] % (Auto) 10.3 (3-14) % Eos % (Auto) 2.8 (2-4) % Baso % (Auto) 1.7 (0-2) % Neut # (Auto) 1800 (1089-4971) /uL Lymph # (Auto) 1100 (9493-4158) /uL [place] # (Auto) 300 (0-900) /uL Eos # (Auto) 100 (0-450) /uL Baso # (Auto) 100 (0-100) /uL PT 13.7 H (9.4-12.5) SECONDS INR 1.2 (0.9-1.3) APTT 38 H (25.1-36.5) SECONDS Sodium 142 (137-145) mmol/L Potassium 3.8 (3.4-5.1) mmol/L Chloride 104 (98-107) mmol/L Carbon Dioxide 28 (22-32) mmol/L BUN 8 L (9-20) mg/dL Creatinine 0.73 (0.66-1.25) mg/dL Estimated GFR > 60 (>60) mL/min BUN/Creatinine Ratio 11.0 (6-22) Glucose 118 H (70-99) mg/dL Calcium 8.9 (8.4-10.2) mg/dL Magnesium 2.3 (1.6-2.3) mg/dL Total Bilirubin 0.6 (0.2-1.3) mg/dL AST 41 (17-59) IU/L ALT 33 (<50) IU/L Alkaline Phosphatase 107 (38-126) U/L Total Creatine Kinase 47 L (55-170) U/L Troponin I < 0.012 (0.01-0.034) ng/mL NT-Pro-B Natriuret Pep 1430 H (<125) pg/mL Total Protein 7.3 (6.3-8.2) g/dL Albumin 4.4 (3.5-5.0) g/dL Globulin 2.9 (1.7-4.1) g/dL Albumin/Globulin Ratio 1.5 (1.0-2.8) Lipase 39 (23-300) U/L Imaging Data Chest x-ray: My Impression: Unable to independently reviewed chest x-ray Radiologist's Impresson: Radiology report reviewed, no acute findings. ECG Data Attestation: I personally reviewed and interpreted this ECG as follows: (Atrial fibrillation with a ventricular rate of 145 old anterior infarct no acute ST-elevation) [facility] Narrative Medical decision making narrative: This is a 75-year-old man complaining of atrial fibrillation with rapid ventricular response. He has a history of the same. He does also has a history of coronary disease however his chest pain (occurring only in the setting of tachycardia does not have ischemic EKG changes. He was successfully cardioverted and repeat EKG showed sinus rhythm without ischemic changes. He was pain-free at the time of discharge. We will continue his previous home medications including anticoagulation and follow up with his equip tech Discharge Plan Departure Patient Disposition: Home Clinical Impression: Atrial fibrillation with rapid ventricular response Activity Restrictions/Additional Instructions: Today, we cardioverted you again for atrial fibrillation. Continue your previous home medications including the Eliquis. Contact your equip tech soon. If you are having recurrent chest pain, increasing shortness of breath or other acute symptoms recheck in the emergency department. Remember not to drive tonight as we gave sedating medications. Prescriptions: No Action fluticasone propionate [Flonase Allergy Relief] 50 mcg/actuation spray,suspension 1 spray intranasal Q12H Qty: 16 0RF Rx Instructions: administer into each nostril diltiazem HCl 120 mg capsule,extended release 24 hr PO DAILY nitroglycerin 0.4 mg tablet, sublingual sublingual atorvastatin 20 mg tablet PO DAILY clopidogrel 75 mg tablet PO DAILY cefdinir 300 mg capsule 300 mg PO BID Qty: 14 0RF carvedilol 6.25 mg tablet 6.25 mg PO BID atorvastatin 10 mg tablet 10 mg PO DAILY lisinopril-hydrochlorothiazide 20-12.5 mg tablet 1 tab PO DAILY sildenafil [Viagra] 100 mg tablet 0 mg PO PRN PRN (Reason: Erectile Dysfunction) ferrous sulfate 324 mg (65 mg iron) Tablet,Delayed Release (Dr/Ec) 65 mg PO Q OTHER DAY magnesium oxide 400 mg magnesium Tablet 400 mg PO DAILY Multivitamin Senior 1 tab PO DAILY Turmeric Curcumin 1,000 mg 1,000 mg PO DAILY ProAir RespiClick 90 mcg/actuation aerosol powdr breath activated 1 inh INHALATION DIRECTED amiodarone 200 mg Tablet See Rx Instructions .ROUTE .COMPLEX Qty: 60 0RF Rx Instructions: take 2 tabs (400mg) twice daily for 1 week, then take 1 tab (200mg) twice daily for 1 week, then take 1 tab once daily Eliquis 5 mg Tablet 5 mg PO BID Qty: 60 0RF Referrals: Jud Rodriguez PA-C [Primary Care Provider, Family Practice] Stand Alone Forms: Patient Portal/API
[2025-07-26 14:08] LABS: Alanine Aminotransferase 33 IU/L (<50); Albumin 4.4 g/dL (3.5-5.0); Albumin Globulin Ratio 1.5 (1.0-2.8); Alkaline Phosphatase 107 U/L (38-126); Blood Urea Nitrogen 8 mg/dL (9-20); Calcium 8.9 mg/dL (8.4-10.2); Carbon Dioxide 28 mmol/L (22-32); Chloride 104 mmol/L (98-107); Creatine Kinase 47 U/L (55-170); Estimated Glomerular Filt Rate > 60 mL/min (>60); Globulin 2.9 g/dL (1.7-4.1); Glucose 118 mg/dL (70-99); HEMOLYSIS < 15 (0-50); Lipase 39 U/L (23-300); Magnesium 2.3 mg/dL (1.6-2.3); Potassium 3.8 mmol/L (3.4-5.1); Sodium 142 mmol/L (137-145); Total Protein 7.3 g/dL (6.3-8.2)
[2025-07-26 14:19] LABS: NT-proBNP (BNP-Adult 18+) 1430 pg/mL (<125); Troponin I < 0.012 ng/mL (0.01-0.034)
[2025-07-26] MEDS: ETOMIDATE 2 MG/ML 10 ML VIAL 11.3 MG IV (15:28)
--- NOTE | 2025-07-26 15:38 | EKG_ITS ---
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
== END 2025-07-26 16:21 | disposition home or self-care (01) ==
PROVIDERS: Emergency Provider Emergency Medicine; PCP Physician Assistant Medical
DX: I48.20 Chronic atrial fibrillation, unspecified (principal); R07.9 Chest pain, unspecified
CPT/HCPCS: 36415; 71045; 80053; 82550; 83690; 83735; 83880; 84484; 85025; 85610; 85730; 92960; 93005; 99152; 99285

== ENCOUNTER 2025-08-06 17:05 | Emergency (ER) | payer MEDICARE, OTHER, SELFPAY ==
[2023-09-26 04:47] VITALS: BMI 36.9
[2025-08-06] VITALS (11 sets, daily range): BP systolic 139–174; BP diastolic 73–110; PULSE 57–146; RESP 14–26; TEMP 36.6; O2SAT 94–97; BMI 31.0
--- NOTE | 2025-08-06 17:12 | EKG_ITS ---
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
--- NOTE | 2025-08-06 17:12 | DI.RAD.S_ITS ---
PROCEDURE: XR CHEST 1V INDICATIONS: Chest Pain TECHNIQUE: One view of the chest was acquired. COMPARISON: [facility], CR, XR CHEST 1V, 07/26/2025, 13:35. FINDINGS: Surgical changes and devices: None. Lungs and pleura: Lungs are clear. No pleural effusions or pneumothorax. Mediastinum: Mediastinal contours appear normal. Heart size is normal. Bones and chest wall: No suspicious bony lesions. Overlying soft tissues appear unremarkable. IMPRESSION: No acute cardiopulmonary abnormality is seen. Approved by: Jono Yost M.D. on 08/06/2025 at 16:47
[2025-08-06 17:29] LABS: Add Manual Diff / Slide Review NO; Hematocrit 40.2 % (41-53); Hemoglobin 13.5 g/dL (13.5-17.5); Lymphocytes Absolute Auto 1200 /uL (1100-4500); Mean Corpuscular HGB Conc 33.6 % (30-36); Mean Corpuscular Hemoglobin 28.9 PG (26-34); Mean Corpuscular Volume 86.1 fL (80-100); Platelet Count 172 X10^3/uL (150-400)
[2025-08-06 17:34] LABS: INR 1.4 (0.9-1.3); Prothrombin Time 15.6 SECONDS (9.4-12.5)
[2025-08-06 17:37] LABS: PTT Partial Thromboplastin Tim 38 SECONDS (25.1-36.5)
[2025-08-06 17:38] LABS: Alanine Aminotransferase 39 IU/L (<50); Albumin 4.5 g/dL (3.5-5.0); Albumin Globulin Ratio 1.5 (1.0-2.8); Alkaline Phosphatase 116 U/L (38-126); Blood Urea Nitrogen 7 mg/dL (9-20); Calcium 8.9 mg/dL (8.4-10.2); Carbon Dioxide 29 mmol/L (22-32); Chloride 107 mmol/L (98-107); Creatine Kinase 39 U/L (55-170); Estimated Glomerular Filt Rate > 60 mL/min (>60); Globulin 3.1 g/dL (1.7-4.1); Glucose 119 mg/dL (70-99); HEMOLYSIS < 15 (0-50); Lipase 58 U/L (23-300); Magnesium 2.4 mg/dL (1.6-2.3); Potassium 3.7 mmol/L (3.4-5.1); Sodium 144 mmol/L (137-145); Total Protein 7.6 g/dL (6.3-8.2)
[2025-08-06 17:50] LABS: NT-proBNP (BNP-Adult 18+) 1120 pg/mL (<125); Troponin I < 0.012 ng/mL (0.01-0.034)
--- NOTE | 2025-08-06 18:02 | ED.ARRPALP ---
HPI - Arrhythmia/Palpitations General Chief Complaint: Arrhythmia/Palpitations Stated Complaint: AFIB since 4pm today Time Seen by Provider: 08/06/25 17:12 Source: patient Mode of arrival: Ambulatory History of Present Illness HPI narrative: 75-year-old male with history of coronary artery disease status post 3 coronary stents in [place], history of atrial fibrillation 1st diagnosed about 3 years ago for which he takes Eliquis anticoagulation, followed by cardiology Dr. Griffiths, and Romelia garcia in the same office, last saw Romelia Natalio 07/18/25, has had 4 prior cardioversions, he has had 3 cardioversions in the last 3 weeks, last cardioversion 08/12/2025, today about 4:30 p.m. had sensation of fast heart rate, monitor device showed atrial fibrillation with rate of 140s, no dizziness, no syncope or presyncopal symptoms. No recent fevers or chills. No nausea or vomiting or diarrhea. He has been prescribed carvedilol, diltiazem. Related Data Home Medications ?Medication ?Instructions ?Recorded ?Confirmed Multivitamin Senior 1 tab PO DAILY 06/07/19 08/05/25 carvedilol 6.25 mg tablet 6.25 mg PO BID 06/07/19 08/05/25 ferrous sulfate 324 mg (65 mg 65 mg PO Q OTHER DAY 06/07/19 08/05/25 iron) tablet,delayed release lisinopril 20 1 tab PO DAILY 06/07/19 08/05/25 mg-hydrochlorothiazide 12.5 mg tablet magnesium oxide 400 mg PO DAILY 06/07/19 08/05/25 sildenafil 100 mg tablet (Viagra) 0 mg PO PRN PRN Erectile 06/07/19 08/05/25 Dysfunction atorvastatin 20 mg tablet mg PO DAILY 10/25/24 08/05/25 diltiazem HCl 120 mg capsule,24 mg PO DAILY 10/25/24 08/05/25 hr,extended release nitroglycerin 0.4 mg sublingual mg sublingual 10/25/24 08/05/25 tablet ascorbic acid (vitamin C) 100 mg 100 mg PO DAILY 08/05/25 08/05/25 tablet aspirin 81 mg tablet,delayed 81 mg PO DAILY 08/05/25 08/05/25 release (Adult Low Dose Aspirin) cholecalciferol (vitamin D3) 50 50 mcg PO DAILY 08/05/25 08/05/25 mcg (2,000 unit) capsule (D3-2000) gabapentin 100 mg capsule 100 mg PO TID 08/05/25 08/05/25 mecobalamin (vitamin B12) 1,000 1,000 mcg PO DAILY 08/05/25 08/05/25 mcg chewable tablet (B12 Active) zinc citrate, zinc oxide 50 mg mg PO 08/05/25 08/05/25 tablet Previous Rx's ?Medication ?Instructions ?Recorded fluticasone propionate 50 1 spray intranasal Q12H #16 grams 03/20/23 mcg/actuation nasal spray,suspension (Flonase Allergy Relief) apixaban 5 mg tablet (Eliquis) 5 mg PO BID #60 tabs 09/26/23 cephalexin 500 mg tablet 500 mg PO Q6H 7 days #28 tabs 08/05/25 Allergies Allergy/AdvReac Type Severity Reaction Status Date / Time levofloxacin (From LEVAQUIN) Allergy Unknown Verified 08/06/25 17:13 doxycycline AdvReac Mild Verified 08/06/25 17:13 methylprednisolone AdvReac Mild Verified 08/06/25 17:13 Patient History Medical History (Updated 08/06/25 @ 20:28 by Gutierrez Friedman MD) Headache Neck pain Abscess of left arm Acute cystitis Psoriasis COPD (chronic obstructive pulmonary disease) HLD (hyperlipidemia) HTN (hypertension) Atrial fibrillation Social History household members: spouse and friend(s) Smoking Status: Unknown if ever smoked alcohol intake: current Smoking Status: Unknown if ever smoked tobacco type: cigars alcohol intake frequency: holidays/special occasions only Alcohol type: beer Exam Narrative Exam Narrative: GENERAL: Well-developed patient, in mild distress. HEAD: Atraumatic. Normocephalic. EYES: Pupils equal round and reactive. Extraocular motions intact. No scleral icterus. No injection or drainage. ENT: Nose without bleeding, purulent drainage. Throat without erythema, tonsillar hypertrophy or exudate. Airway patent. NECK: Trachea midline. Non tender CARDIOVASCULAR: Regular rate and rhythm. Soft 1-2 systolic murmur best left upper sternal border (patient reports known murmur, unclear type). RESPIRATORY: Clear to auscultation. Breath sounds equal bilaterally. No wheezes, rales, or rhonchi. GASTROINTESTINAL: Abdomen soft, non-tender, nondistended. EXTREMITIES: No edema or joint tenderness. BACK: Nontender without deformity or crepitance. No flank tenderness. NEURO: AOx3. Motor functions grossly nonfocal. SKIN: No rash or erythema of visible areas Initial Vital Signs Initial Vital Signs: Vital Signs Temperature 97.9 F 08/06/25 17:06 Pulse Rate 144 H 08/06/25 17:06 Respiratory Rate 22 08/06/25 17:06 Blood Pressure 174/110 H 08/06/25 17:06 Pulse Oximetry 97 08/06/25 17:06 Oxygen Delivery Method Room Air 08/06/25 17:06 Course Orders Ordered: ED Orders 08/06/25 17:12 XR chest 1V Stat EKG-12 Lead Stat 08/06/25 17:15 Complete Blood Count AUTO DIFF Stat Comprehensive Metabolic Panel Stat Lipase Stat Magnesium Stat NT-proBNP (BNP-Adult 18+) Stat PTT Partial Thromboplastin Saad Stat Prothrombin Time INR Stat Troponin & CK Cardiac Panel Stat 08/06/25 18:17 EKG-12 Lead Stat 08/06/25 19:12 Troponin I Stat Discontinued Medications Diltiazem HCl (Diltiazem Cd 120 Mg Cap) 120 mg PO NOW ONE Stop: 08/06/25 18:17 Last Admin: 08/06/25 18:44 Dose: 120 mg Documented By: HAYDEE Vital Signs Vital signs: Vital Signs - 8 hr 08/06/25 17:30 08/06/25 18:00 08/06/25 18:00 Pulse Rate 76 65 Respiratory Rate 15 Blood Pressure 146/78 H Pulse Oximetry 96 94 08/06/25 18:30 08/06/25 18:30 08/06/25 19:00 Pulse Rate 61 Respiratory Rate 21 Blood Pressure 139/73 158/74 H Pulse Oximetry 95 08/06/25 19:00 08/06/25 19:30 08/06/25 19:30 Pulse Rate 57 L 63 Respiratory Rate 14 20 Blood Pressure 160/75 H Pulse Oximetry 95 96 08/06/25 20:00 08/06/25 20:01 08/06/25 20:01 Pulse Rate 57 L 58 L Respiratory Rate 15 26 H Blood Pressure 149/86 H Pulse Oximetry 97 97 08/06/25 20:30 08/06/25 20:30 Pulse Rate 58 L Respiratory Rate 14 Blood Pressure 159/75 H Pulse Oximetry 97 MDM - Arrhythmia/Palpitations Lab Data Attestation: I reviewed the patient's lab results. Lab results narrative: White blood cell count 4800, hemoglobin 13.5, platelets adequate. Glucose 119. Electrolytes serum CO2 normal. Renal function normal. Liver functions normal. Lipase normal. BNP 1120 elevated. Troponin negative/unmeasurable x2 interval sets. 08/06/25 17:15 08/06/25 17:15 Labs: Lab Results 08/06/25 08/06/25 Range/Units 17:15 19:12 WBC 4.8 (4.5-11.0) X10^3/uL RBC 4.67 (4.5-5.9) X10^6/uL Hgb 13.5 (13.5-17.5) g/dL Hct 40.2 L (41-53) % MCV 86.1 (80-100) fL MCH 28.9 (26-34) PG MCHC 33.6 (30-36) % RDW 14.2 (11.6-14.8) % Plt Count 172 (150-400) X10^3/uL Neut % (Auto) 62.6 (50-75) % Lymph % (Auto) 24.4 L (25-40) % [place] % (Auto) 10.2 (3-14) % Eos % (Auto) 2.3 (2-4) % Baso % (Auto) 0.5 (0-2) % Neut # (Auto) 3000 (0989-0904) /uL Lymph # (Auto) 1200 (9113-3667) /uL [place] # (Auto) 500 (0-900) /uL Eos # (Auto) 100 (0-450) /uL Baso # (Auto) 0 (0-100) /uL PT 15.6 H (9.4-12.5) SECONDS INR 1.4 H (0.9-1.3) APTT 38 H (25.1-36.5) SECONDS Sodium 144 (137-145) mmol/L Potassium 3.7 (3.4-5.1) mmol/L Chloride 107 (98-107) mmol/L Carbon Dioxide 29 (22-32) mmol/L BUN 7 L (9-20) mg/dL Creatinine 0.76 (0.66-1.25) mg/dL Estimated GFR > 60 (>60) mL/min BUN/Creatinine Ratio 9.2 (6-22) Glucose 119 H (70-99) mg/dL Calcium 8.9 (8.4-10.2) mg/dL Magnesium 2.4 H (1.6-2.3) mg/dL Total Bilirubin 0.6 (0.2-1.3) mg/dL AST 46 (17-59) IU/L ALT 39 (<50) IU/L Alkaline Phosphatase 116 (38-126) U/L Total Creatine Kinase 39 L (55-170) U/L Troponin I < 0.012 < 0.012 (0.01-0.034) ng/mL NT-Pro-B Natriuret Pep 1120 H (<125) pg/mL Total Protein 7.6 (6.3-8.2) g/dL Albumin 4.5 (3.5-5.0) g/dL Globulin 3.1 (1.7-4.1) g/dL Albumin/Globulin Ratio 1.5 (1.0-2.8) Lipase 58 (23-300) U/L Imaging Data Chest x-ray: Radiologist's Impresson: [address] [address] XRay Report Signed Patient: Brandon Galo MR#: [id number] : 1950 Acct:[id number] Age/Sex: 75 / M Date of Service: 08/06/25 Loc: ED Accession Number: [id number] Procedure: XR chest 1V Ordering Provider: Betsy Martinez MD PROCEDURE: XR CHEST 1V INDICATIONS: Chest Pain TECHNIQUE: One view of the chest was acquired. COMPARISON: [facility], CR, XR CHEST 1V, 07/26/2025, 13:35. FINDINGS: Surgical changes and devices: None. Lungs and pleura: Lungs are clear. No pleural effusions or pneumothorax. Mediastinum: Mediastinal contours appear normal. Heart size is normal. Bones and chest wall: No suspicious bony lesions. Overlying soft tissues appear unremarkable. IMPRESSION: No acute cardiopulmonary abnormality is seen. Approved by: Jono Yost M.D. on 08/06/2025 at 16:47 ECG Data Attestation: I personally reviewed and interpreted this ECG as follows: Interpretation: 1717, atrial fibrillation with rapid ventricular response, rate 112, narrow complex, no obvious ST segment elevation or depression changes. QRS 86, QTC 469. 1825, normal sinus rhythm with a rate of 62, no obvious ST segment elevation or depression changes. MD 198, QRS 86, QTC 448. Rhythm change noted from prior study this visit, now normal sinus rhythm spontaneously. MDM Narrative Medical decision making narrative: 75-year-old male with history of coronary artery disease status post prior stenting, history of AFib on anticoagulation, multiple recent episodes cardioversion, 3 in the last 1 month, followed by [facility] cardiology Dr. Griffiths, takes carvedilol and Eliquis and long-acting diltiazem. Due for evening diltiazem dose later tonight. Sensation of heart racing this afternoon, believes he has been in atrial fibrillation again since 4:30 p.m., denies missed doses of Eliquis. Yet to take evening Diltiazem-CD. Initial screening EKG shows atrial fibrillation with rapid response, rate 112, no obvious ischemic change. Chest x-ray no acute changes, see radiology report. Patient seen by me with normal sinus rhythm on monitor, repeat EKG confirms normal sinus rhythm, spontaneous conversion. Rate 70-65. We will give evening dose oral diltiazem. Lab data: White blood cell count 4800, hemoglobin 13.5, platelets adequate. Glucose 119. Electrolytes serum CO2 normal. Renal function normal. Liver functions normal. Lipase normal. BNP 1120 elevated. Troponin negative/unmeasurable x2 interval sets. Oral dose diltiazem tolerated well. Repeat troponin also negative. Offered to consult [place] [facility] on-call, he prefers to call on Friday 2 days from now office of Dr. 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 Discharged home per patient request. Advised follow up with his spray machine loader, consider ablation. Discharged home with family. Discharge Plan Departure Patient Disposition: Home Clinical Impression: Atrial fibrillation with rapid ventricular response Activity Restrictions/Additional Instructions: Atrial fibrillation recurrent events, 3 prior cardioversion events reported in the last 1 month since your last visit with cardiology clinic in [place]. Sensation of atrial fibrillation again tonight, initial EKG in fact did confirm atrial fibrillation with mildly elevated ventricular rate initially. Spontaneous conversion to normal sinus rhythm without specific treatment. Electrolytes and blood tests not suggestive of abnormalities tonight, no evidence for heart attack at this time. Consider cardiac ablation procedure, he would like to discuss this with your cardiologists on Friday, and we will communicate with your cardiology clinic on Friday. You were given your oral dose of long-acting diltiazem. Continue your chronic medications as prescribed for now. Declined offered phone call to on-call Cardiology at [facility], preferred contacting your own cardiology clinic on Friday day after tomorrow. Discharged home with your family. Return to this/nearest emergency department for any change worsening symptoms or any concerns prior. Prescriptions: No Action fluticasone propionate [Flonase Allergy Relief] 50 mcg/actuation spray,suspension 1 spray intranasal Q12H Qty: 16 0RF Rx Instructions: administer into each nostril diltiazem HCl 120 mg capsule,extended release 24 hr PO DAILY nitroglycerin 0.4 mg tablet, sublingual sublingual atorvastatin 20 mg tablet PO DAILY cephalexin 500 mg tablet 500 mg PO Q6H 7 Days Qty: 28 0RF carvedilol 6.25 mg tablet 6.25 mg PO BID lisinopril-hydrochlorothiazide 20-12.5 mg tablet 1 tab PO DAILY sildenafil [Viagra] 100 mg tablet 0 mg PO PRN PRN (Reason: Erectile Dysfunction) ferrous sulfate 324 mg (65 mg iron) Tablet,Delayed Release (Dr/Ec) 65 mg PO Q OTHER DAY magnesium oxide 400 mg magnesium Tablet 400 mg PO DAILY Multivitamin Senior 1 tab PO DAILY Eliquis 5 mg Tablet 5 mg PO BID Qty: 60 0RF aspirin [Adult Low Dose Aspirin] 81 mg tablet,delayed release (DR/EC) 81 mg PO DAILY ascorbic acid (vitamin C) 100 mg tablet 100 mg PO DAILY gabapentin 100 mg capsule 100 mg PO TID cholecalciferol (vitamin D3) [D3-2000] 50 mcg (2,000 unit) capsule 50 mcg PO DAILY mecobalamin (vitamin B12) [B12 Active] 1,000 mcg tablet,chewable 1,000 mcg PO DAILY zinc citrate, zinc oxide 50 mg tablet PO Referrals: Jud Rodriguez PA-C [Primary Care Provider, Family Practice] Stand Alone Forms: Patient Portal/API
--- NOTE | 2025-08-06 18:17 | EKG_ITS ---
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
[2025-08-06 19:52] LABS: Troponin I < 0.012 ng/mL (0.01-0.034)
== END 2025-08-06 20:35 | disposition home or self-care (01) ==
PROVIDERS: Emergency Medicine; Emergency Provider Emergency Medicine; PCP Physician Assistant Medical
DX: I48.91 Unspecified atrial fibrillation (principal); Z79.01 Long term (current) use of anticoagulants; I25.10 Atherosclerotic heart disease of native coronary artery without angina pectoris; Z95.5 Presence of coronary angioplasty implant and graft
CPT/HCPCS: 36415; 71045; 80053; 82550; 83690; 83735; 83880; 84484; 85025; 85610; 85730; 93005; 99283; 99284

== ENCOUNTER 2025-09-04 13:28 | Emergency (ER) | payer MEDICARE, OTHER, SELFPAY ==
[2023-09-26 04:47] VITALS: BMI 36.9
[2025-09-04] VITALS (26 sets, daily range): BP systolic 102–171; BP diastolic 57–74; PULSE 68–88; RESP 12–37; TEMP 36.9; O2SAT 93–99; BMI 32.1
--- OUTSIDE RECORDS SUMMARY | 2025-09-04 13:35 | XMS_ITS | Continuity of Care Document ---
Author Organization [facility] [place] [address] Phone Care Team Providers Care Load Mixer Name Role Phone Jud Rodriguez PA-C Primary Care Provider GUTIERREZ KHAN PA-C Attending Provider GUTIERREZ KHAN PA-C Referring Provider [phone] Chyna Garcia Attending Provider Chyna Garcia Referring Provider Care Teams Patient Care Team Team Status: Active Member Role/Relationship Status Dates Jud Rodriguez PA-C Primary Care Provider Active Visit Care Team Team Status: Active Member Role/Relationship Status Dates Jud Rodriguez PA-C Primary Care Provider Active Start: June 15, 2025 GUTIERREZ KHAN PA-C Attending Provider Active Start: June 15, 2025 GUTIERREZ KHAN PA-C Referring Provider Active Start: June 15, 2025 Visit Care Team Team Status: Inactive Member Role/Relationship Status Dates Jud Rodriguez PA-C Primary Care Provider Active Start: June 18, 2025 End: June 18, 2025 SIMONE Sanz Attending Provider Active Start: June 18, 2025 End: June 18, 2025 SIMONE Sanz Referring Provider Active Start: June 18, 2025 End: June 18, 2025 Chief Complaint and Reason for Visit Chief Complaint Admit Date M54.16,R LUMBAR RADICULOPATHY June 10:30am Spondylosis of cervical spine Cervicogen ic headach June 18, 2025 2:46pm Allergies, Adverse Reactions, Alerts Allergen Type Severity Reaction Last Updated Verified Status levofloxacin Allergy Severe Unknown June 082024 10:15am Yes Active doxycycline Adverse Reaction Moderate Dizziness June 08, 2025 10:15am Yes Active methylprednisolone Adverse Reaction Moderate Dizziness June 08, 2025 10:15am Yes Active Social History Smoking Status Status Start Date End Date Date of Observa tion Smokes tobacco daily (finding) June 08, 2025 10:26am Observation Status Observation Response Date of Response Living arrangement At home May 10:22am Living Situation With spouse/s.o. May 10:22am ETOH Use Liquor June 08, 2025 10:22am Legal Sex Male Sex Assigned At Male 1950 Problems Active Problems Problem Diagnosis/Recorded Date Onset Date Status C omments Foraminal stenosis of cervical region June 23, 2025 12:49pm Unknown Active Modera te to severe central canal and foraminal stenosis at C6-7. No abnormal cord signal. Multilevel central canal stenosis from C3-4 through C5-6. BPH (benign prostatic hyperplasia) November 22, 2024 1:02pm Unknown Active Elevated PSA November 22, 2024 7:35pm Unknown Active Sleep apnea November 22, 2024 7:36pm Unknown Active Osteoarthritis of knees, bilateral November 22, 2024 7:35pm Unknown Active Medication management March 04, 2025 11:25am Unknown A ctive Erectile dysfunction November 22, 2024 7:38pm Unknown Ac tive Hypertension, essential, benign November 22, 2024 1:02pm Unknown Active Anemia November 22, 2024 1:02pm Unknown Active Aortic valve stenosis March 04, 2025 11:27am Unknown A ctive Hyperlipidemia November 22, 2024 1:02pm Unknown Active Atherosclerotic heart disease of [place] coronary artery without angina pectoris March 04, 2025 11:26am Unknown Active Spondylosis of cervical spine June 08, 2025 11:15am Unknown Active Hyperlipidemia LDL goal <130 March 04, 2025 11:26am Unknown Active Psoriasis November 22, 2024 7:37pm Unknown Active Paroxysmal atrial fibrillation November 22, 2024 7:35pm Unknown Active Cervicogenic headache June 08 11:14am Unknown Active Obesity, unspecified November 22, 2024 7:37pm Unknown Ac tive Smoker November 22, 2024 7:38pm Unknown Active Inactive/Resolved Problems Problem Diagnosis/Recorded Date Onset Date Status C omments Prostate cancer screening November 22, 2024 7:36pm Unknown Resolved Screening for malignant neoplasm of colon November 22, 2024 7:35pm Unknown Resolved Benign prostatic hyperplasia with urinary obstruction November 22, 2024 7:36pm Unknown Resolved Hx of colonoscopy January 10, 2025 9:09am Unknown Resol gab pt had procedure on 06/25/[address] Stalin Mendez at [facility] 6mm/3mm Sessile polyp removed. Multiple med-Lg diverticula in the Sigmoid Colon. Retroflexion was preformed and grade 1 internal Hemorrhoids where revealed. Medications Medication Status Dose Units Route Directions Qty Days Refills S tart Date Stop Date End Date Reason(s) Instructions Adherence Atorvastati n (Lipitor) 20 mg tablet Discont inued 20 MG PO EVERY EVENING November 21, 2024 11:00p m Augus t 2024 12:11 pm Ferrous Sulfate 325 mg (65 mg iron) tablet Active 325 MG PO .q48 November 21, 2024 11:00p m Unknown Magnesium Oxide 400 mg magnesium tablet Active 400 MG PO every day November 21, 2024 11:00p m Unknown Ascorbic Acid (Vitamin C) 1,000 mg tablet Active 1 GM PO ONCE November 21, 2024 11:00p m Unknown Vitamin B Complex tablet Active 1 TAB PO every day November 21, 2024 11:00p m Unknown Albuterol Sulfate (Proair Respiclick) 90 mcg/actuati on aerosol powdr breath activated Active 2 INH INH Q4H as needed for shortness of breath November 21, 2024 11:00p m Unknown Lisinopril- Hydrochloro thiazide 20-12.5 mg tablet Discont inued 1 TAB PO every day November 21, 2024 11:00p m November 29, 2024 2:02p m Carvedilol (Coreg) 6.25 mg tablet Active 6.25 MG PO TWICE A DAY Adrian 2024 11:00p m must administer with a meal/food Unknown Multivitami n (Daily Vitamin Formula) tablet Active 1 TAB PO every day November 21, 2024 11:00p m Unknown Aspirin 81 mg tablet,juan c yed release (/EC) Discont inued 81 MG PO every day November 21, 2024 11:00p m November 29, 2024 1:30p m Atorvastati n 20 mg tablet Active 0 .ROUTE .COMPLEX 90 3 May 04, 2025 12:11p m TAKE 1 TABLET EVERY NIGHT Unknown Meloxicam 15 MG tablet Discont inued 0 .Route .COMPLEX March 28, 2015 11:00p m November 29, 2024 1:31p m QD Lisinopril 10 MG tablet Discont inued 0 .Route .COMPLEX March 28, 2015 11:00p m November 29, 2024 1:31p m QD Methotrexat e Sodium (Pf) 25 MG/ML solution Discont inued 0 .Route .COMPLEX March 28, 2015 11:00p m November 29, 2024 1:31p m QD Rosuvastati n (Crestor) 10 MG tablet Discont inued 0 .Route .COMPLEX March 28, 2015 11:00p m November 29, 2024 1:31p m QD Oxycodone-A cetaminophe n (Percocet 5-325 Mg Tablet) 1 EACH tablet Discont inued 1 - 2 EACH PO Q6H as needed for Pain 15 0 March 28, 2015 11:00p m November 29, 2024 1:31p m Clopidogrel 75 MG tablet Discont inued 0 .Route .COMPLEX March 09, 2024 11:00p m March 04, 2025 10:16 am QD Nitroglycer in 4.9 GM spray,non-a erosol Active 0 .Route .COMPLEX March 09, 2024 11:00p m PRN Unknown Apixaban (Eliquis) 2.5 MG tablet Discont inued 0 .Route .COMPLEX March 09, 2024 11:00p m March 04, 2025 10:15 am QD UNKNOWN DOSE Apixaban (Eliquis) 5 mg tablet Active 5 MG PO TWICE A DAY [facility] 2024 11:00p m Unknown Cholecalcif brianna (Vitamin D3) 50 mcg (2,000 unit) capsule Active 50 MCG PO every day March 03, 2025 11:00p m Unknown Zinc Sulfate 50 mg zinc (220 mg) capsule Active 50 MG PO TWICE A DAY March 03, 2025 11:00p m Unknown Aspirin 81 mg tablet Active 81 MG PO every day March 03, 2025 11:00p m Unknown Lisinopril 20 mg tablet Discont inued 20 MG PO every day 90 3 March 04, 2025 11:14a m Septe mber 2024 11:05 am Benign essential hypertensi on Essential (primary) hypertensi on high bp for blood pressure Lisinopril 10 mg tablet Discont inued 10 MG PO every day 90 3 November 28, 2024 11:00p m March 04, 2025 11:14 am for blood pressure Diltiazem Hcl (Dilt-Xr) 120 mg capsule,ext .rel 24h degradable Active 120 MG PO Q24H November 28, 2024 11:00p m Unknown Lisinopril 30 mg tablet Active 30 MG PO every day 90 3 2024 10:59a m Benign essential hypertensi on Essential (primary) hypertensi on high bp for blood pressure Unknown Gabapentin 100 mg capsule Active 100 MG PO THREE TIMES A DAY 270 1 2024 11:00p m Cervicogen ic headache Cervicogen ic headache headaches Unknown Immunizations Immunization Event Date Not Given Reason Dose Number Engineering Scientist Lot Number Reason(s) Given Vaccine Information Statement (VIS) Detail Administration Location Pneumococcal Conjugate 13 Dece er 2019 Pneumococcal Polysacc. Vaccine, 23 valent March 13, 2022 Tetanus-Dipth eria-Pertussi s 2022 [id number] Procedures Procedure Date Performed Status MRI Cervical Spine WO June 18, 2025 2:00pm c ompleted Relevant Diagnostic Tests and/or Laboratory Data Diagnostic Imaging Reports Author Zaria Julio [facility] Authored June 20, 2025 4: 07pm Report Dictated Date/Time Dictated By Status Radiology Report June 20, 2025 4:07pm Antonina Best MD completed PT NAME: JENNIFER BUTTERFIELD MR#: [id number] DEP CLI/DI AGE: 75 CI DT/TM: 06/18/25 PCP: Jud Rodriguez PA-C : 1950 ATT: SIMONE Sanz SEX: M ORD: Chyna cheung [facility] EXAM: [id number] MRI/CERVWO ([id number]) PROCEDURE: MRI Cervical Spine WO INDICATIONS: Spondylosis of cervical spine TECHNIQUE: Multisequence, multiplanar MRI of the cervical spine was performed without contrast. COMPARISON: None. FINDINGS: Image quality: Compromised due to motion artifact on most sequences.. Alignment and Curvature: There is normal bony alignment. Bone Marrow: Marrow demonstrates normal overall signal. Mild anterior and posterior endplate spurring from C4-C7. Spinal Cord: Visualized spinal cord has normal size and signal. No cerebellar tonsillar herniation. Paraspinous Soft Tissues: No paravertebral masses. Prevertebral soft tissues are normal in thickness. C2-C3: Mild left facet hypertrophy and mild left foraminal stenosis. C3-C4: Mild broad-based posterior disc osteophyte causing moderate central canal narrowing and mild bilateral foraminal narrowing. C4-C5: Moderate broad-based posterior disc osteophyte causing moderate central canal narrowing effacing the CSF space. Uncovertebral joint hypertrophy and facet arthropathy contribute to moderate bilateral foraminal stenosis, left worse than right. C5-C6: Broad-based posterior disc bulge flattens the cord and effaces the CSF. Moderate bilateral foraminal stenosis, left worse than right. C6-C7: Broad-based central disc bulge superimposed on moderate circumferential disc osteophyte causes moderate to severe central canal narrowing with the central canal AP diameter measuring 6 mm maximally. Moderate to severe bilateral foraminal stenosis. C7-T1: Normal in appearance. IMPRESSION: Moderate to severe central canal and foraminal stenosis at C6-7. No abnormal cord signal. Multilevel central canal stenosis from C3-4 through C5-6. Reviewed by: Zaria Julio MD on 06/20/2025 5:22 PM PDT Approved by: Zaria Julio MD on 06/20/2025 5:22 PM PDT Station ID: [id number] Report Electronically Signed by Zaria Julio MD 06/20/25 1707 06/20/25 1722 cc: SIMONE Sanz; Jud Rodriguez PA-C Advance Directives Advance Directive Response Recorded Date/ Time Advance Directives No March 03 10:02am Advance Directives Information Provided No March 03, 2023 10:02am Insurance Providers Guarantor JENNIFER BUTTERFIELD Address [address] [place] [address] [address] [facility] [address] Contact Info. Home Phone: Payer Group Member ID Coverage Type Subscriber Relationship to Subscriber Effective Date Expiration Date Rolando Mendez [id number] null JENNIFER BUTTERFIELD Id: [id number] [address] [facility] [id number] Home Phone: Self Standard [id number] null JENNIFER BUTTERFIELD Id: [id number] Self Encounters Encounter Location(s) Arrival/Admit Date Discharge/Departure Date Discharge/Departure Disposition Provider(s) Departed Physician/ Provider Office Visit -Primary [facility] [place] June 08, 2025 11:09am June 08, 2025 11:59pm SIMONE Sanz Registered Recurring -Rehab Services [facility] June 15, 2025 10:30am Gutierrez Khan PA-C Departed Clinical -Diagnostic Imaging (Main) June 18, 2025 2:46pm June 18, 2025 11:59pm Discharged to home care or self care (routine discharge) SIMONE Sanz
--- NOTE | 2025-09-04 13:44 | EKG_ITS ---
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
--- NOTE | 2025-09-04 13:52 | ED.SOB ---
HPI - SOB/Dyspnea General Chief Complaint: Shortness of Breath/Dyspnea Stated Complaint: sob, was in afib yesterday, lower back px Time Seen by Provider: 09/04/25 13:38 Source: patient Mode of arrival: Ambulatory Limitations: no limitations History of Present Illness HPI Narrative: 75-year-old gentleman history of CAD status post 3 stents, history atrial fibrillation on Eliis follow up by Dr. Griffiths cardiology presents with sore throat cough shortness breath wheezing for the past week. Pt has continued to smoke cigars at this time unrelieved with inhalers. He was in atrial fibrillation yesterday per his [employer] mobile matt but not having active chest pain. He denies any fever chills body aches vomiting diarrhea but he does endorse low back pain that is chronic for him. Other than what is stated 14 pt ROS is negative. Related Data Home Medications ?Medication ?Instructions ?Recorded ?Confirmed Multivitamin Senior 1 tab PO DAILY 06/07/19 09/04/25 carvedilol 6.25 mg tablet 6.25 mg PO BID 06/07/19 09/04/25 ferrous sulfate 324 mg (65 mg 65 mg PO Q OTHER DAY 06/07/19 09/04/25 iron) tablet,delayed release magnesium oxide 400 mg PO DAILY 06/07/19 09/04/25 sildenafil 100 mg tablet (Viagra) 0 mg PO PRN PRN Erectile 06/07/19 09/04/25 Dysfunction atorvastatin 20 mg tablet 20 mg PO DAILY 10/25/24 09/04/25 diltiazem HCl 120 mg capsule,24 120 mg PO DAILY 10/25/24 09/04/25 hr,extended release nitroglycerin 0.4 mg sublingual 0.4 mg sublingual Q5M PRN chest 10/25/24 09/04/25 tablet pain ascorbic acid (vitamin C) 100 mg 100 mg PO DAILY 08/05/25 09/04/25 tablet aspirin 81 mg tablet,delayed 81 mg PO DAILY 08/05/25 09/04/25 release (Adult Low Dose Aspirin) cholecalciferol (vitamin D3) 50 50 mcg PO DAILY 08/05/25 09/04/25 mcg (2,000 unit) capsule (D3-2000) gabapentin 100 mg capsule 100 mg PO TID 08/05/25 09/04/25 mecobalamin (vitamin B12) 1,000 1,000 mcg PO DAILY 08/05/25 09/04/25 mcg chewable tablet (B12 Active) zinc citrate, zinc oxide 50 mg 50 mg PO BID 08/05/25 09/04/25 tablet lisinopril 30 mg tablet 30 mg PO DAILY 09/04/25 09/04/25 Previous Rx's ?Medication ?Instructions ?Recorded fluticasone propionate 50 1 spray intranasal Q12H #16 grams 03/20/23 mcg/actuation nasal spray,suspension (Flonase Allergy Relief) apixaban 5 mg tablet (Eliquis) 5 mg PO BID #60 tabs 09/26/23 furosemide 40 mg tablet (Lasix) 40 mg PO DAILY #3 tabs 09/04/25 oxycodone 10 mg tablet 10 mg PO Q6H PRN pain #20 tabs 09/04/25 Allergies Allergy/AdvReac Type Severity Reaction Status Date / Time levofloxacin (From LEVAQUIN) Allergy Unknown Verified 08/06/25 17:13 doxycycline AdvReac Mild Verified 08/06/25 17:13 methylprednisolone AdvReac Mild Verified 08/06/25 17:13 Review of Systems Review of Systems ROS Unobtainable: All systems reviewed & are unremarkable except as noted in HPI and below Patient History Medical History (Updated 09/04/25 @ 18:20 by Stanford Diez DO) Headache Neck pain Abscess of left arm Acute cystitis Psoriasis COPD (chronic obstructive pulmonary disease) HLD (hyperlipidemia) HTN (hypertension) Atrial fibrillation Social History household members: spouse and friend(s) Smoking Status: Current every day smoker alcohol intake: current Smoking Status: Current every day smoker tobacco type: cigars alcohol intake frequency: holidays/special occasions only Alcohol type: beer Exam Narrative Exam Narrative: GENERAL: [75] year old patient appears stated age. Well-developed patient, in mild distress. HEAD: Atraumatic. Normocephalic. EYES: Pupils equal round and reactive. Extraocular motions intact. No scleral icterus. No injection or drainage. ENT: Nose without bleeding, purulent drainage. Throat without erythema, tonsillar hypertrophy or exudate. Airway patent. NECK: Trachea midline. Non tender CARDIOVASCULAR: Regular rate and rhythm without murmurs, gallops, or rubs. RESPIRATORY: Decreased breath sounds GASTROINTESTINAL: Abdomen soft, non-tender, nondistended. EXTREMITIES: No edema or joint tenderness. BACK: Nontender without deformity or crepitance. No flank tenderness. NEURO: AOx3. SKIN: No rash or erythema of visible areas Initial Vital Signs Initial Vital Signs: Vital Signs Temperature 98.5 F 09/04/25 13:33 Pulse Rate 78 09/04/25 13:33 Respiratory Rate 20 09/04/25 13:33 Blood Pressure 118/67 09/04/25 13:33 Pulse Oximetry 98 09/04/25 13:33 Oxygen Delivery Method Room Air 09/04/25 13:33 Course Vital Signs Vital signs: Vital Signs - 8 hr 09/04/25 13:33 Temperature 98.5 F Pulse Rate 78 Respiratory Rate 20 Blood Pressure 118/67 Pulse Oximetry 98 Oxygen Delivery Method Room Air MDM - SOB/Dyspnea ECG Data Interpretation: NSR HR 76 RI 186 QRS [address]-t wave change Unchanged from 08/06/25 [facility] Narrative Medical decision making narrative: All lab work, vital signs, nurse triage note, medication list, previous ER visits, and all imaging studies reviewed. Cxr - no acute cardiopulmonary process. WBC 6.6 Hg 10.9 Plt 74. CMP nml gluc 101 mag 2.3 Alk phos 272 Alt 118 BNP 9520 Darin 0.102 1st set 2nd set trop 0.087. Case d/w Dr.Bhola xochitl ibanez disability liaison officer to start lasix 40mg IV x 1, lopressor 5mg IV, asa 324mg Po. Differential dx nstemi, stemi, chf, copd, covid/flu/rsv. D/c home on lasix rx and to f/u with pcp and xochitl and oxycodone for chronic back pain. Discharge Plan Departure Patient Disposition: Home Clinical Impression: CHF (congestive heart failure), Chronic back pain Instructions: DI for Heart Failure Activity Restrictions/Additional Instructions: Return with new or worsening symptoms. Take your medicines directed. 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 Prescriptions: New furosemide [Lasix] 40 mg tablet 40 mg PO DAILY Qty: 3 0RF oxycodone 10 mg tablet 10 mg PO Q6H PRN (Reason: pain) Qty: 20 0RF No Action fluticasone propionate [Flonase Allergy Relief] 50 mcg/actuation spray,suspension 1 spray intranasal Q12H Qty: 16 0RF Rx Instructions: administer into each nostril diltiazem HCl 120 mg capsule,extended release 24 hr 120 mg PO DAILY nitroglycerin 0.4 mg tablet, sublingual 0.4 mg sublingual Q5M PRN (Reason: chest pain) Rx Instructions: Q5 min for a max of 3 doses atorvastatin 20 mg tablet 20 mg PO DAILY carvedilol 6.25 mg tablet 6.25 mg PO BID sildenafil [Viagra] 100 mg tablet 0 mg PO PRN PRN (Reason: Erectile Dysfunction) ferrous sulfate 324 mg (65 mg iron) Tablet,Delayed Release (Dr/Ec) 65 mg PO Q OTHER DAY magnesium oxide 400 mg magnesium Tablet 400 mg PO DAILY Multivitamin Senior 1 tab PO DAILY Eliquis 5 mg Tablet 5 mg PO BID Qty: 60 0RF lisinopril 30 mg tablet 30 mg PO DAILY aspirin [Adult Low Dose Aspirin] 81 mg tablet,delayed release (DR/EC) 81 mg PO DAILY ascorbic acid (vitamin C) 100 mg tablet 100 mg PO DAILY gabapentin 100 mg capsule 100 mg PO TID cholecalciferol (vitamin D3) [D3-2000] 50 mcg (2,000 unit) capsule 50 mcg PO DAILY mecobalamin (vitamin B12) [B12 Active] 1,000 mcg tablet,chewable 1,000 mcg PO DAILY zinc citrate, zinc oxide 50 mg tablet 50 mg PO BID Referrals: Jud Rodriguez PA-C [Primary Care Provider, Family Practice] Stand Alone Forms: Patient Portal/API
--- NOTE | 2025-09-04 13:54 | DI.RAD.S_ITS ---
PROCEDURE: XR CHEST 1V INDICATIONS: sob TECHNIQUE: One view of the chest was acquired. COMPARISON: [facility], , XR CHEST 1V, 08/06/2025, 17:14. [facility], CR, XR CHEST 1V, 07/26/2025, 13:35. FINDINGS: Surgical changes and devices: None. Lungs and pleura: Lungs are clear. No pleural effusions or pneumothorax. Mediastinum: Mediastinal contours appear normal. Heart size is normal. Bones and chest wall: No suspicious bony lesions. Overlying soft tissues appear unremarkable. IMPRESSION: No acute cardiopulmonary abnormality is seen. Dictated by: Negrito Phelps M.D. on 09/04/2025 at 15:35 Approved by: Negrito Phelps M.D. on 09/04/2025 at 15:35
--- NOTE | 2025-09-04 13:54 | EKG_ITS ---
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
[2025-09-04 14:00] LABS: Add Manual Diff / Slide Review NO; Hematocrit 32.5 % (41-53); Hemoglobin 10.9 g/dL (13.5-17.5); Lymphocytes Absolute Auto 500 /uL (1100-4500); Mean Corpuscular HGB Conc 33.6 % (30-36); Mean Corpuscular Hemoglobin 28.7 PG (26-34); Mean Corpuscular Volume 85.5 fL (80-100); Platelet Count 74 X10^3/uL (150-400)
[2025-09-04] MEDS: methylPREDNISolone succ 125 MG/2 ML VIAL IV (14:06)
[2025-09-04 14:10] LABS: Alanine Aminotransferase 118 IU/L (<50); Albumin 3.2 g/dL (3.5-5.0); Albumin Globulin Ratio 1.1 (1.0-2.8); Alkaline Phosphatase 272 U/L (38-126); Blood Urea Nitrogen 17 mg/dL (9-20); Calcium 8.6 mg/dL (8.4-10.2); Carbon Dioxide 27 mmol/L (22-32); Chloride 103 mmol/L (98-107); Estimated Glomerular Filt Rate > 60 mL/min (>60); Globulin 2.8 g/dL (1.7-4.1); Glucose 101 mg/dL (70-99); HEMOLYSIS < 15 (0-50); Lipase 99 U/L (23-300); Magnesium 2.3 mg/dL (1.6-2.3); Potassium 3.7 mmol/L (3.4-5.1); Sodium 137 mmol/L (137-145); Total Protein 6.0 g/dL (6.3-8.2)
[2025-09-04 14:22] LABS: NT-proBNP (BNP-Adult 18+) 9520 pg/mL (<125); Troponin I 0.102 ng/mL (0.01-0.034)
[2025-09-04 15:07] LABS: Coronavirus NL 63 Not Detected (Not Detect); SARS- CoV-2 Not Detected (Not Detecte)
[2025-09-04] MEDS: ALBUTEROL/IPRATROPIUM 3 ML AMPUL INH (15:11)
[2025-09-04 16:58] LABS: Culture Indicated Urine Cult Not Indicated
[2025-09-04] MEDS: ASPIRIN 81 MG CHEW TAB 324 MG PO (17:12)
[2025-09-04] MEDS: MORPHINE 4 MG/ML INJ IV (17:13)
[2025-09-04] MEDS: FUROSEMIDE 40 MG/4 ML VIAL IV (17:15)
[2025-09-04] MEDS: METOPROLOL TARTRATE 5 MG/5 ML INJ IV (17:17)
[2025-09-04 17:19] LABS: Troponin I 0.087 ng/mL (0.01-0.034)
== END 2025-09-04 18:33 | disposition home or self-care (01) ==
PROVIDERS: Emergency Provider Family Medicine; PCP Physician Assistant Medical
DX: I50.9 Heart failure, unspecified (principal); R05.9 Cough, unspecified; J02.9 Acute pharyngitis, unspecified; R06.2 Wheezing; M54.89 Other dorsalgia
CPT/HCPCS: 36415; 71045; 80053; 81003; 81015; 83690; 83735; 83880; 84484; 85025; 87086; 87633; 93005; 94640; 96374; 96375; 99284; J1938; J2272; J2919